=== PATIENT | female | born 1950 | race Caucasian/White ===

== ENCOUNTER 2016-10-12 18:44 | Inpatient (IN) | payer MEDICARE, BC ==
--- NOTE | ~2016-10-12 | CO ---
Unit #: [id number] #: [id number] Patient: NICOLE HOLLIS [id number] [address] [address] [id number] I MR#: [id number] NAME: NICOLE HOLLIS ROOM: 560 Age: 66 Sex: F Admission Date: 10/12/2016 : 1950 Attending Physician: Trever Espinoza M.D. Primary Care Physician: David Ramirez M.D. CONSULTATION REPORT CHIEF COMPLAINT Cirrhosis of the liver, pancytopenia, history of Hodgkin lymphoma, congestive heart failure, declined performance, massive bilateral lymphedema on hemodynamically, came for headache. HISTORY OF PRESENT ILLNESS This is a 66-year-old female who was admitted in the hospital during May with multi-organ failure. She was started on dialysis. She had significant improvement in the quality of life. She has lost weight. Now she is able to walk. She is at present living at home. She has a headache and they are trying to rule out meningitis. At present, she is comfortable. Her headache is better. From a hematology point of view, the patient with diagnosis of Hodgkin lymphoma the age of 20 and received chemotherapy only. During 2010, she developed pancytopenia but bone marrow was normal. The patient developed HOWELL. Subsequently she developed cirrhosis leading to pancytopenia. This has been stable for a long time. The massive bilateral lower extremity lymphedema. The patient had difficulty walking. However, after hemodialysis, she is improved. At present she is feeling comfortable. REVIEW OF SYSTEMS CONSTITUTIONAL: No fever, no chills, no sweats, no weight loss. EYES: No visual symptoms. EARS, NOSE AND THROAT: There is no runny nose or sore throat or difficulty hearing. CARDIOVASCULAR: No chest pain. No shortness of breath. No palpitations. No orthopnea. No PND. RESPIRATORY: No cough. No wheezing. No hemoptysis. GASTROINTESTINAL: No nausea, vomiting, diarrhea, constipation, hematochezia or melena. GENITOURINARY: No urinary frequency, hesitancy or urgency. No blood in the urine. MUSCULOSKELETAL: No muscle or joint pain. NEUROLOGIC: No headache. No numbness or tingling. No weakness. No seizure. PSYCHIATRIC: No anxiety, depression or mood disturbance. ENDOCRINE: No excessive urination or thirst. DERMATOLOGIC: No rash or change in the skin. ALLERGIC/IMMUNOLOGIC: No symptoms. Unit #: [id number] #: [id number] Patient: NICOLE HOLLIS HEMATOLOGIC/LYMPHATIC: Denies any symptoms. PAST MEDICAL HISTORY 1. Hodgkin lymphoma diagnosed at age of 20, status post chemotherapy. No sign of disease. 2. Pancytopenia, bone marrow normal, August 2010. 3. Cirrhosis of the liver. 4. Portal hypertension. 5. Splenomegaly. 6. CKD. 7. Diabetes. 8. Hypertension. 9. Sleep apnea. 10. Congestive heart failure. 11. Anxiety. 12. Depression. 13. Asthma. 14. Massive lower extremity lymphedema. 15. Valvular disease. CURRENT MEDICATIONS Include: 1. Vancomycin. 2. Pepcid. 3. Tylenol. 4. Ceftriaxone. 5. Paxil. 6. Synthroid. 7. Inhaler. ALLERGIES 1. Morphine. 2. Sulfa. SOCIAL HISTORY No smoking, no alcohol, no drugs. However, she has significant exposure to second-hand smoking. FAMILY HISTORY Positive for diabetes, hypertension, coronary artery disease. PHYSICAL EXAMINATION GENERAL: Patient is comfortable. ECOG is 0. The patient is pleasant. VITAL SIGNS: Afebrile. O2 saturation on 2 liters 100%. Pulse 94. Respiratory rate 18. Blood pressure 120/69. HEENT: Moist mucosa. Pupils equally reactive to light. Extraocular muscles intact. Sclerae anicteric. No obvious bleeding from nasal mucosa or oral mucosa. Scalp normal. Hearing normal. NECK: No JVD. No lymphadenopathy. LYMPHATIC/HEMATOLOGIC: There is no palpable adenopathy in the neck, axilla or inguinal area. CARDIOVASCULAR: S1, S2. Regular rate and rhythm. No S3 or S4. RESPIRATORY: Chest symmetrical, normal. Clear to auscultation bilaterally. No wheezes, no rales, no rhonchi. No dullness to percussion. ABDOMEN/GASTROINTESTINAL: Abdomen is soft, nontender, nondistended. No hepatosplenomegaly. EXTREMITIES: Bilateral lower extremity lymphedema. There is no clubbing, no cyanosis. No varicose veins. Unit #: [id number] #: [id number] Patient: NICOLE HOLLIS NEUROLOGICAL: Patient is alert, awake and oriented x3. Cranial nerves II-XII are intact. Sensory grossly intact. Motor is 4/5 in all four extremities. Gait is normal. Station is normal. Language is normal. Memory is normal. DTRs +2 in all four extremities. MUSCULOSKELETAL: No joint swelling. No bony tenderness. No muscle tenderness. SKIN: No petechiae, no rash, no ecchymosis. PSYCHIATRIC: No anxiety. No delusions or hallucinations. There is no agitation. Eye contact is normal. Affect is appropriate. There is no flight of ideas. DIAGNOSTIC STUDIES LABORATORY: WBC 8.4, hemoglobin 8.4, MCV 103, platelets 54. Creatinine is 5.4. Iron studies are normal. LFTs are normal. IMAGING: Patient had MRI of the brain and MRA of the neck all normal. ASSESSMENT AND PLAN This 66-year-old female has the following active issues: 1. Hodgkin lymphoma. Patient was diagnosed with Hodgkin lymphoma age of 20. She received chemotherapy. No sign of disease. 2. Pancytopenia. Bone marrow biopsy during August 2010 normal. Now this is due to cirrhosis of the liver. There is significant sequestration of WBC and platelets in the liver and the spleen. Will supportive care. If she needs a lumbar puncture, will transfuse her 2 units of single-donor platelets. 3. Anemia with iron studies normal. This is due to chronic disease. 4. Cardiovascular/respiratory. CAD, COPD, CHF, stable. 5. Renal. The patient has end-stage of disease, is on dialysis an disease working. This had removed a significant amount of fluid. She has lost more than 100 pounds and is feeling better. Extremities, the edema is better. Dictated by... Gordon Mcgee/michael TD: 10/14/2016 22:12 JOB #: [id number] CONSULTATION REPORT Page 1 of 1 X Angel Helton MD CONSULTATION REPORT
--- NOTE | ~2016-10-12 | CO ---
Unit #: [id number] #: [id number] Patient: FUNMILAYO LINO [id number] [address] [place], [place] [address] [id number] I MR#: [id number] NAME: FUNMILAYO LINO ROOM: 560 Age: 66 Sex: F Admission Date: 10/12/2016 : 1950 Attending Physician: Trever Espinoza M.D. Primary Care Physician: David Ramirez M.D. Consultation Date: 10/13/2016 CONSULTATION REPORT REASON FOR CONSULTATION End-stage renal disease. Thank you very much for asking us to see this patient in consultation. HISTORY OF PRESENT ILLNESS Ms. Funmilayo Lino is a 66-year-old female, who has a history of end-stage renal disease since June, who has using a tunneled catheter currently for dialysis, although appears to have a new [place] in her left arm whom she states was placed a couple of weeks ago at [facility]. The patient presented here yesterday with worsening headache and found to have a low-grade fever, was admitted for this. She was having some neurological event, she was given IV steroids for her headaches, she states is feeling better, although not resolved. She states on Monday on dialysis, she got real tired and weak after dialysis with severe headache. She also had a headache afterwards yesterday but not as weak. She denies any chest pain or shortness of breath. No nausea or vomiting. No diarrhea. PAST MEDICAL HISTORY History of end-stage renal disease, again hemodialysis every Monday, Monday, and Monday. History of COPD, history of obstructive sleep apnea, status post gastric bypass, history of atrial fib, history of cirrhosis, history of pancytopenia, history of Hodgkin lymphoma, history of ascites, history of hypothyroidism, history of hypertension, history of diastolic congestive heart failure, history of hyperlipidemia, history of chronic lymph edema, history of morbid obesity. MEDICATIONS At home include inhalers, she is on PhosLo 667 with each meal, Pepcid 20 mg a day, lactulose 30 mL daily, Synthroid 125 mcg daily, Paxil 20 mg a day, ProMod, she is on Ultram q.8, Xanax 0.25 mg p.r.n., Zofran p.r.n. Her medications here include vancomycin, lactulose, Rocephin, Paxil, Synthroid, PhosLo, Zofran, Tylenol, Pepcid, insulin, she is on dexamethasone 4 mg q.6. She is also appears to be on ampicillin. ALLERGIES Include sulfa, morphine, and gabapentin. SOCIAL HISTORY She does not smoke or drink. REVIEW OF SYSTEMS Unit #: [id number] #: [id number] Patient: FUNMILAYO LINO As mentioned in the HPI. She does not remember having any fevers at home or any visual problems, sinus problems. No cough or hemoptysis. No neck pain or neck stiffness. No severe abdominal pain. No chest pain. No shortness of breath. She has chronic swelling. FAMILY HISTORY Noncontributory. PHYSICAL EXAMINATION GENERAL: She is alert. She is oriented, but she seems little bit confused. She told me she has only been on dialysis for a couple of weeks, although she is alert and oriented. VITAL SIGNS: T-max is 100.2, pulse 97 to 106, blood pressure 106 to 135 over 50s to 60s. HEENT: She is normocephalic and atraumatic. Pupils are equal, round, and reactive to light. Extraocular muscles are intact. Hearing appears to be normal. Mouth, clear. No erythema. No exudate. NECK: Supple. No JVD. CARDIAC: She appears to have a regular rhythm without a rub. No S3 or S4. LUNGS: Fairly clear bilaterally. No wheezes, rhonchi, or rales. ABDOMEN: Obese, bowel sounds positive, nontender. EXTREMITIES: Her legs are large. She has some chronic skin changes from swelling. Her left upper extremity appears to have a [place] in place with a wound that is clear. She has a tunneled catheter in her upper right chest. : Deferred. DIAGNOSTIC STUDIES LABORATORY RESULTS: Today, shows a glucose of 235, BUN of 26, creatinine 3.9, sodium 136, potassium 5.2, chloride is 99, bicarb is 26, calcium is 8.7. Her albumin is 2.5. Magnesium is 1.6. Alkaline phosphatase 128. Liver function tests are normal. Troponin 0.08. CPK is 72, TSH is 2.57. Her INR is 1.1. Hemoglobin is 8.8 with a white count of 8700, platelets 41,000 which 62,000 when she came in and her hemoglobin was 10.9 when came in, her white count has improved. Her urine sample was done. Blood cultures are done and are pending at this time. ASSESSMENT AND PLAN 1. End-stage renal disease. The patient went to dialysis yesterday. Her potassium is a little bit up and is also with partial 82 of sugar. I am going to go ahead and just give her 15 g Kayexalate, ordered dialysis in the morning. I am not sure of her true volume status with her episode she had on Monday, and Monday and probably will not be real aggressive on the fluid removal. We will place her on a two potassium bath. We will follow. Check electrolytes in a.m. as well. 2. Fever, increased WBC on multiple antibiotics, questionable meningitis versus other. Blood cultures are pending. Certainly, she has a tunneled catheter in place and that also could be a source of infection. 3. History of cirrhosis. 4. History of pancytopenia. 5. History of chronic obstructive pulmonary disease. Dictated by..Kari Dong M.D. ABDOULAYE/alisha Unit #: [id number] #: [id number] Patient: FUNMILAYO LINO TD: 10/14/2016 04:21 JOB #: [id number] CONSULTATION REPORT Page 1 of 1 X Teresa Dong MD X CONSULTATION REPORT
--- NOTE | ~2016-10-12 | MR122 ---
[facility] A Service of [facility] RADIOLOGY TEXT RESULTS PATIENT: NICOLE HOLLIS LOCATION: C5B 560-01 : [birth year] UNIT #: [id number] AGE: [address]: Trever Espinoza MD SEX: F ORDER DR: [id number] [facility] [address] [place], [place] [address] [id number] I MR#: [id number] Acc #: [id number] NAME: NICOLE HOLLIS : 1950 SEX: F STUDY DATE/TIME: 10/13/2016 21:32 UNIT: [facility] ROOM: [facility] STUDY DESCRIPTION: MR MRA Head Wo Contrast Attending Physician: Trever Espinoza M.D. Ordering Physician: Sarah Quigley M.D. Primary Care Physician: David Ramirez M.D. MRI CENTER REPORT This report is preliminary unless electronic signature is present. EXAM Intracranial MR angiogram HISTORY Severe intractable headache since yesterday at 03:00 p.m., weakness. Patient does not talk well and has a history of Hodgkin's disease for 4 years. COMMENT MR angiography performed [place] vasculature. There is a separate MRI brain and MR angiogram neck. There is a hypoplastic or diseased distal left vertebral artery and the flow related enhancement is essentially not seen. The right vertebral artery supplies the basilar. There is no discrete vascular cutoff seen. Study is motion limited and there are some areas of irregular narrowing which could be real or artifactual most apparent in the left MCA territory. The asymmetric involvement of the left MCA territory would suggest that there is at least some component of true disease. If real this would probably be a manifestation of intracranial atherosclerotic disease though vasculitis is a secondary differential consideration. No definite anterior communicating artery is seen. Neither posterior communicator is seen. No gross evidence for intracranial aneurysm [place]. IMPRESSION Study is motion limited. Allowing for this, no intracranial vascular cutoff is appreciated. No gross intracranial aneurysm. The right vertebral artery supplies the basilar. The distal left vertebral artery is not seen and it is presumably hypoplastic or diseased. There is some irregularity of the intracranial vasculature in general most apparent in the left MCA territory. While it is likely that at least some of this is artifactual because of the motion present, the asymmetric involvement of [facility] A Service of [facility] RADIOLOGY TEXT RESULTS PATIENT: NCIOLE HOLLIS LOCATION: [facility] 560-01 : [birth year] UNIT #: [id number] AGE: [address]: Trever Espinoza MD SEX: F ORDER DR: the left MCA territory raises concern for some component of intracranial atherosclerotic disease or less likely vasculitis. Correlate clinically. STAT * RESULT Dictated by... Brittany Hagan M.D. THIS IS AN ELECTRONICALLY VERIFIED REPORT Brittany Hagan M.D. at 10/14/2016 8:04 AM BREANA/lisa TD: 10/14/2016 07:55 JOB #: [id number] MRI CENTER REPORT Page 1 of 1 COPY
--- NOTE | ~2016-10-12 | CT71 ---
[facility] A Service of [facility] RADIOLOGY TEXT RESULTS PATIENT: NICOLE HOLLIS LOCATION: CEDOF 33319-04 : [birth year] UNIT #: [id number] AGE: [address]: Shari Palma MD SEX: F ORDER DR: [id number] [facility] [address] [place], [place] [address] [id number] MR#: [id number] Acc #: [id number] NAME: NICOLE HOLLIS : 1950 SEX: F STUDY DATE/TIME: 10/12/2016 17:19 UNIT: CEDOF ROOM: 15948 STUDY DESCRIPTION: CT Head Wo Contrast Attending Physician: Shari Palma M.D. Ordering Physician: Rahat Best D.O. Primary Care Physician: David Ramirez M.D. MEDICAL IMAGING REPORT This report is preliminary unless electronic signature is present EXAM Head CT without HISTORY Headache and blurred vision for 3 days; history of hypertension, renal failure; irregular heartbeat; neuropathy; Hodgkin's disease, diabetes/ COMMENT Routine noncontrast head CT is reviewed. This CT exam was performed with one or more of the following radiation dose reduction techniques: automatic exposure control, adjustment of mA and/or kV according to patient size, and iterative reconstruction. COMPARISON 11/09/2014 FINDINGS Small air-fluid level in the sphenoid sinus with some retained secretions. Please correlate for mild acute sinusitis symptoms. Otherwise paranasal sinuses and mastoid air cells are clear. Incidental note made of hyperostosis frontalis interna. There is no evidence for acute intracranial hemorrhage or extraaxial fluid collection. The ventricles are normal in size and configuration and the basilar cisterns are patent. No intracranial mass effect. No obvious acute cortical infarct is appreciated but if there is clinical concern for acute CVA followup imaging would be suggested preferably with an MRI if the patient. The patient has had cataract surgery bilaterally. IMPRESSION 1. There is no acute intracranial abnormality appreciated, but if there is clinical concern for acute CVA followup imaging is recommended preferably with an MRI. [facility] A Service of [facility] RADIOLOGY TEXT RESULTS PATIENT: NICOLE HOLLIS LOCATION: CEDOF 36215-28 : [birth year] UNIT #: [id number] AGE: [address]: Shari Palma MD SEX: F ORDER DR: 2. Tiny air-fluid level sphenoid sinus consistent with a component of acute sinusitis. Please correlate further clinically. Dictated by... Brittany Hagan M.D. THIS IS AN ELECTRONICALLY VERIFIED REPORT Brittany Hagan M.D. at 10/12/2016 11:08 PM SAC/to TD: 10/12/2016 21:52 JOB #: [id number] MEDICAL IMAGING REPORT Page 1 of 1 COPY
--- NOTE | ~2016-10-12 | EKG ---
PATIENT: NICOLE HOLLIS UNIT #: [id number] Ventricular Rate: 104 BPM Atrial Rate: 104 BPM P-R Interval: 140 ms QRS Duration: 80 ms Q-T Interval: 362 ms QTC Calculation(Bezet): 476 ms P Cuthbert: 76 degrees Calculated R Cuthbert: 77 degrees Calculated T Cuthbert: 66 degrees Diagnosis Line: Sinus tachycardia Premature atrial complexes Diagnosis Line: Borderline ECG Diagnosis Line: When compared with ECG of 27-MAY-2016 14:56, Diagnosis Line: Sinus rhythm has replaced Atrial fibrillation Diagnosis Line: Nonspecific ST elevation is now Present Diagnosis Line: Confirmed by BERNICE SCHULER MD ([id number]) on 10/13/2016 Diagnosis Line: 8:04:10 PM INTERPRETING MD: GANGA FLOWERS
--- NOTE | ~2016-10-12 | DS ---
Unit #: [id number] #: [id number] Patient: NICOLE HOLLIS [id number] [address] [place], [place] [address] [id number] I MR#: [id number] NAME: NICOLE HOLLIS ROOM: 560 Age: 66 Sex: F Admission Date: 10/12/2016 : 1950 Discharge Date: 10/16/2016 Attending Physician: Trever Espinoza M.D. Primary Care Physician: David Ramirez M.D. DISCHARGE SUMMARY FINAL DIAGNOSES 1. Presumed sepsis. 2. Headache. 3. Hyperglycemia. SECONDARY DIAGNOSES 1. End stage renal disease, on dialysis with Dr. Dong Monday, Monday, Monday. 2. Chronic obstructive pulmonary disease. 3. Congestive heart failure. 4. Paroxysmal atrial fibrillation. 5. Cirrhosis of unknown etiology. 6. Diabetes mellitus type 2. 7. Coronary artery disease. 8. Hypertension. 9. Hyperlipidemia. 10. Obstructive sleep apnea. 11. History of non-Hodgkin lymphoma. 12. Chronic pancytopenia. 13. Hypothyroidism. 14. Chronic lymphedema. CONSULTS 1. Dr. Quigley - Neurology. 2. Dr. Crystal - Hematology. 3. Dr. Dong - Nephrology. HOSPITAL COURSE The patient is a pleasant 61-year-old female well known to me who presented with headache and was feeling well from dialysis. She was admitted for possible sepsis and treated with broad spectrum antibiotics. The initial thought was that she may have meningitis. However, on evaluation per Neurology, did not suggest so and a lumbar puncture was deferred. This was because her headache had resolved. The etiology of the possible sepsis was questionable at this point simply because her white count was 14,000 on admission and urine culture so far has been negative for 24 hours even though she has had antibiotics for two to three days prior to being cultured. She was seen by hematology. 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 She did get hemodialysis while she was here, by Dr. Dong. One of her blood culture showed no growth and the other one showed Proteus mirabilis. This was sensitive to ampicillin, ceftazidime, ceftriaxone and cefepime. She has improved significantly and she is suitable and stable for discharge. The etiology of the sepsis is presumptive from the urinary Unit #: [id number] #: [id number] Patient: NICOLE HOLLIS at this time and I would discharge the patient on Ceftin 250 mg p.o. b.i.d. for ten days with presumed Proteus mirabilis urinary tract infection even though the culture did come back negative. She will be discharged in stable condition. MEDICATIONS Medications on discharge would include: 1. Ceftin 250 mg p.o. b.i.d. for ten days. 2. Ultram 50 mg p.o. q.8 hours p.r.n. 3. Dulera 20 mcg, one inhalational twice day. 4. Xanax 0.25 mg, one p.o. q.8 hourly p.r.n. 5. Albuterol nebulizer, one inhalational q.4-6 hourly needed for shortness of air. 6. Lactulose 30 mL p.o. daily. 7. Acetaminophen 500 mg p.o. t.i.d. as needed for pain. 8. Paxil 20 mg p.o. daily. 9. Zofran 4 mg p.o. q.8 hourly as needed for nausea. 10. Benadryl 25 mg p.o. q.6 hourly as needed for itching and allergies. 11. ProMod 30 mL p.o. at bedtime. 12. Breo Ellipta 200/25 mg, one inhalational daily as needed. 13. Levemir 30 units subcu b.i.d. per home dose. 14. NovoLog sliding scale per home dose. 15. Famotidine 20 mg p.o. daily. 16. Ultram 50 mg p.o. q.8 hourly as needed. 17. Calcium acetate 667 mg p.o. t.i.d. 18. Levothyroxine sodium 125 mcg p.o. every morning She will be discharged with home health. We will repeat a CBC and BMP in three days and urine culture after the course of antibiotics. Time spent coordinating discharge is about 40 minutes. Dictated by... Gordon Montero TD: 10/16/2016 13:14 JOB #: [id number] DISCHARGE SUMMARY Page 1 of 1 X David Ramirez MD DISCHARGE SUMMARY
--- NOTE | ~2016-10-12 | CR72 ---
[facility] A Service of [facility] RADIOLOGY TEXT RESULTS PATIENT: NICOLE HOLLIS LOCATION: C5 560-01 : [birth year] UNIT #: [id number] AGE: [address]: Trever Espinoza MD SEX: F ORDER DR: [id number] [facility] [address] [place], [place] [address] [id number] I MR#: [id number] Acc #: [id number] NAME: NICOLE HOLLIS : 1950 SEX: F STUDY DATE/TIME: 10/12/2016 18:36 UNIT: CEDOF ROOM: 15320 STUDY DESCRIPTION: CR Chest Single View Portable Attending Physician: Shari Palma M.D. Ordering Physician: Rahat Best D.O. Primary Care Physician: David Ramirez M.D. MEDICAL IMAGING REPORT This report is preliminary unless electronic signature is present EXAM Portable AP view of the chest. COMPARISON June 12, 2016 and June 09, 2016. INDICATION 58-year-old female with chest pain for 3 days. FINDINGS Calcified granulomas are noted in both lungs. There is no evidence of pneumothorax, pleural effusion or acute airspace disease. Cardiomediastinal silhouette is within normal limits. Diffuse spondylosis of the thoracic spine. Hemodialysis-type catheter is seen in the right internal jugular vein with the tip terminating near the cavoatrial junction. IMPRESSION No acute radiographic abnormality of the chest. Bilateral calcified pulmonary granulomas. Dictated by... Maikol Johnson M.D. THIS IS AN ELECTRONICALLY VERIFIED REPORT Maikol Johnson M.D. at 10/13/2016 5:23 PM NIRU/ortega TD: 10/12/2016 21:57 JOB #: [id number] [facility] A Service of [facility] RADIOLOGY TEXT RESULTS PATIENT: NICOLE HOLLIS LOCATION: C5 560-01 : [birth year] UNIT #: [id number] AGE: [address]: Trever Espinoza MD SEX: F ORDER DR: MEDICAL IMAGING REPORT Page 1 of 1 COPY
--- NOTE | ~2016-10-12 | US77 ---
[facility] A Service of [facility] RADIOLOGY TEXT RESULTS PATIENT: NICOLE HOLLIS LOCATION: [facility] [address] : 48 UNIT #: [id number] AGE: [address]: Trever Espinoza MD SEX: F ORDER DR: [id number] [facility] [address] [place], [place] [address] [id number] I MR#: [id number] Acc #: [id number] NAME: NICOLE HOLLIS : 1950 SEX: F STUDY DATE/TIME: 10/14/2016 18:42 UNIT: [facility] ROOM: [facility] STUDY DESCRIPTION: US Kidney Bilateral Complete Attending Physician: Trever Espinoza M.D. Ordering Physician: Molina Dong M.D. Primary Care Physician: David Ramirez M.D. MEDICAL IMAGING REPORT This report is preliminary unless electronic signature is present EXAM Bilateral renal ultrasound INDICATION Poor renal function with BUN of 47, creatinine of 5.4. COMPARISON STUDIES 10/06/15 FINDINGS Bladder is not visualized. The right kidney is poorly seen and measures about 8.4 cm in diameter. No hydronephrosis visible. The left kidney is also poorly seen, and it is about 8.5 meters in length. There is a hypoechoic area measuring 15 mm in diameter in the left kidney suggesting a cyst. IMPRESSION The study is limited by the patient's size. There is a probable cyst measuring 15 mm in diameter in the left kidney. There is no hydronephrosis on either side. Dictated by... Iker Krause M.D. THIS IS AN ELECTRONICALLY VERIFIED REPORT Iker Krause M.D. at 10/15/2016 8:04 PM RAGHU/katelynn TD: 10/15/2016 18:46 JOB #: [id number] [facility] A Service [facility] RADIOLOGY TEXT RESULTS PATIENT: NICOLE HOLLIS LOCATION: [facility] 560 : 48 UNIT #: [id number] AGE: [address]: Trever Espinoza MD SEX: F ORDER DR: MEDICAL IMAGING REPORT Page 1 of 1 COPY
--- NOTE | ~2016-10-12 | BMI ---
[facility] Nutrition Therapy DATE: 10/13/16 Patient: NICOLE HOLLIS Physician: JOSEPH Address: [facility] Room/Bed: [address] [place] [address], Zip: [place] [address] Admit Date: 10/12/16 Date of : 48 Height: 5 4 Weight: 240 108.86 HIGH BMI NOTE: DX: 66 yo female admitted for intractable headache ANTHROPOMETRICS: Ht: 5'4" Wt: 109.1 kg (240#) BMI: 41.3 DIET: NPO INTERVENTION: 1. NPO RECOMMENDATIONS: 1. Once medically feasible, advance diet as indicated to consistent carb + healthy heart diet to promote gradual weight loss towards healthy BMI. RD will f/u per protocol. Respectfully, Ciara Yoon, [employer] Lorena Dunlap, RUDI, LD [employer] [facility] cc: client file
--- NOTE | ~2016-10-12 | CO ---
Unit #: [id number] #: [id number] Patient: NICOLE HOLLIS [id number] [facility] [address] [place], [place] [address] [id number] I MR#: [id number] NAME: NICOLE HOLLIS ROOM: 560 Age: 66 Sex: F Admission Date: 10/12/2016 : 1950 Attending Physician: Trever Espinoza M.D. Primary Care Physician: David Ramirez M.D. Consultation Date: 10/13/2016 CONSULTATION REPORT PRIMARY CARE PHYSICIAN David Ramirez M.D. REASON FOR CONSULTATION Intractable headache. PATIENT IDENTIFICATION This is a 66-year-old, right-handed, female, evaluated in room 568 at [facility]. SOURCE OF INFORMATION Obtained from the patient as well as the medical record. HISTORY OF PRESENT ILLNESS This is a 66-year-old, right-handed, female with past medical history of end-stage renal disease, on hemodialysis; COPD; CHF; paroxysmal atrial fibrillation, not on anticoagulation secondary to pancytopenia; cirrhosis of unknown etiology; diabetes mellitus, type 2; CAD; hypertension; hyperlipidemia, who presented to [facility] with complaints of headache and blurred vision after hemodialysis according to the medical record. The patient after discussion with her states that she does not have any prior history of chronic headache. She states that other than occasional headache throughout her life and that is resolved with ohlp-ntj-vboxzdh medicine that she does not have any chronic headache history. She states that she went to dialysis on Monday of this week and after dialysis, she states that she felt very weak and fatigued and had a headache. She denies blurred vision or any vision changes, but states that it was painful and that closing her eyes made her feel better. She took some usns-cdc-mhbshcs medicine and it actually resolved. She states that she was feeling better on Monday, however, on Monday, she went for hemodialysis and had a similar experience for. She developed a headache following dialysis and felt weak. She states that the pain was severe and continued that she sought further treatment and evaluation. She reports it is a generalized headache on top of her head. She denies any exacerbating or alleviating factors other than psar-uqp-opaeuvd medicines that she states did not help it. She denies any blurred vision, double vision, loss of vision, or amaurosis fugax, but states that it was painful and the light did bother her so she did close her eyes. She is adamant that she has not had any blurred vision. She denies any focal pain, any facial weakness, dysarthria, aphasia, focal neurologic changes such as left arm or right arm or left arm or right leg weakness or paresthesia. She denies any neck pain, any recent fever or chills. She did receive 0.25 mg of Dilaudid in the ER with no relief of her headache. She states that she actually feels much better today than yesterday. It Unit #: [id number] #: [id number] Patient: NICOLE HOLLIS appears that she has been receiving IV Decadron, which may have helped. She reports that it is sharp and throbbing in nature. Again, she denies any vision changes or neurologic symptoms or deficits. She denies any fever, illness, injury, or neck pain, and again she states it is "much better today." When asked to quantify on a 0-10 pain scale, she states it is "only a 5." She was admitted for further evaluation of intractable headache, possible sepsis. Her lactic acid was elevated and she did have an elevated temperature in the ER of 100.2, she is currently 98.2, it was 97.3 this morning. On arrival her temperature was 98.7. She did receive Rocephin and vancomycin and that has been continued because of her elevated lactic acid. Her sedimentation rate was 50. Her white blood cell count was 14.3. She has chronic pancytopenia and initially platelet count 62, was unable to undergo a lumbar puncture. Her platelet count today is down to 41. CT of the head done without contrast was negative for any acute intracranial abnormality. There is a tiny air-fluid level in the sphenoid sinus consistent with component of acute sinusitis. Blood cultures have been done preliminary with preliminary results with one of two sets growing gram-negative rods with identification and sensitivity to follow. PAST MEDICAL HISTORY 1. End-stage renal disease, on hemodialysis. She was started on hemodialysis in 06/2016 after admission to [facility] for fluid overload. 2. COPD. 3. Chronic respiratory failure. She is on 2 L home oxygen at home. 4. CHF. Last echocardiogram done was done in 2014 that showed an EF of 50% to 55%. She follows with [facility]. 5. Paroxysmal atrial fibrillation. She is not on anticoagulation due to chronic pancytopenia. 6. Cirrhosis of unknown etiology with portal hypertension. 7. CAD. 8. Diabetes mellitus. 9. Hypertension. 10. Hyperlipidemia. 11. Obstructive sleep apnea, not on CPAP. 12. Non-Hodgkin lymphoma. 13. Hypothyroidism. 14. Chronic lymphedema. 15. History of EGD. 16. Cataract surgery. 17. Gastric bypass. 18. Cholecystectomy. 19. Bilateral tubal ligation. 20. Tonsillectomy. 21. Abdominoplasty. 22. Bilateral arm surgery. 23. Bone marrow biopsy. ALLERGIES Include sulfa, morphine, gabapentin. HOME MEDICATIONS As per med rec include acetaminophen 500 mg p.o. t.i.d. p.r.n., albuterol sulfate one inhalation q.4 to 6 hours p.r.n. shortness of air, Breo Ellipta one inhalation daily for congestion p.r.n., Benadryl 25 mg p.o. p.r.n. for itching and allergies. There is no frequency documented on the med rec. Calcium acetate 667 mg p.o. t.i.d., famotidine 20 mg p.o. daily, Unit #: [id number] #: [id number] Patient: NICOLE HOLLIS lactulose 30 mL p.o. daily, Synthroid 125 mcg p.o. every morning, paroxetine 25 mg p.o. daily, protein supplement 30 mL p.o. q.h.s., tramadol 50 mg p.o. q.8 hours p.r.n. pain, alprazolam 0.25 mg p.o. q.8 hours p.r.n., Zofran 4 mg p.o. q.8 hours p.r.n. FAMILY HISTORY Noncontributory to her presenting illness. SOCIAL HISTORY The patient has no current tobacco use, alcohol use, or illicit drug use. REVIEW OF SYSTEMS 14-point review of systems was done. Pertinent positives are as discussed above, otherwise negative. PHYSICAL EXAMINATION VITAL SIGNS: Temperature as discussed above, pulse 81, respirations 16, blood pressure 110/68, blood pressure in the ER on arrival was 115/60, she has remained normotensive and asymptomatic, oxygen saturation 100%. Height 5 feet 4 inches, weight 240 pounds. BMI 41. NEUROLOGIC: The patient is awake, resting in bed comfortably, calm, and not ill appearing, in no apparent distress, She follows simple commands. She is oriented to person. She is oriented to place. She is oriented to the month, the day of the week, but told me that initially that she thought it was 2016. She was able to correct herself to 2017. She has clear speech. She has no aphasia or dysarthria. She follows simple commands and 2- and 3-step commands. Cranial nerve exam, she demonstrates full arce of vision. Eyes are conjugate without ptosis or nystagmus. Extraocular movements are intact. Sensation of face and scalp is intact. Strength of muscles of facial expression is intact. Hearing is intact to conversation. Tongue is midline. Uvula is midline. Palate elevation is normal. Head turning is unremarkable. Shoulder shrug is unremarkable. Neck is supple. No meningismus appreciated. Pupils are equal, round, reactive, 3+, and brisk. Motor exam, she demonstrates normal bulk, tone is questionable, but with distraction. She does not appear to have any cogwheeling. On exam, she does have a left upper extremity tremor that appears to be more present with movement. She has some asterixis bilaterally. Strength otherwise is equal in the upper extremities. 5-/5 in the lower extremities. She is able to lift against gravity, but difficulty with resistance. She has significant lymphedema. She appears to be equal with no focal changes and no pain with evaluation. Sensory exam is difficult in the lower extremities and in the upper extremities otherwise unremarkable. Gait and Romberg deferred. Reflexes, unable to elicit. Toes are equivocal. Coordination, no past-pointing in the upper extremities or cerebellar signs, unable to evaluate in the lower extremities. DIAGNOSTIC STUDIES IMAGING STUDIES: Please see above. LABORATORY RESULTS: Blood cultures are as discussed above. Repeat CBC shows a white count of 8.7, hemoglobin 8.8, hematocrit 26.1, and platelet count 41. TSH 2.57. Sodium 136, potassium 5.2, chloride 99, CO2 of 26, glucose 235, BUN 26, creatinine 3.9, estimated GFR 11.2, calcium 8.7, AST 27, ALT 12, alkaline phosphatase 128, total protein 5.6, albumin 2.5, phosphorus 3.8, magnesium 1.6. Lactic acid 2.7, initial lactic acid 3.3. Repeat troponin 0.08, initial troponin less than 0.05. ESR 50. Initial white count 14.3. Unit #: [id number] #: [id number] Patient: NICOLE HOLLIS IMPRESSION 1. Headache generalized, nonspecific, episodic, resolving, on Decadron. 2. Fever, resolved. 3. Questionable sepsis. 4. End-stage renal disease, on hemodialysis. 5. Chronic obstructive pulmonary disease. 6. Congestive heart failure. 7. Coronary artery disease. 8. History of paroxysmal atrial fibrillation, not on anticoagulation secondary to chronic pancytopenia. 9. Cirrhosis. 10. One out of two positive blood cultures. PLAN The patient's headache is much improved on steroids. She states that it is mostly resolved, but still lingering. Given presentation and episodic nature in improvement and no other focal symptoms on exam or complaints, this is currently not suggestive of a primary neurologic etiology or a meningitis and does not appear typical of temporal arteritis or pseudotumor cerebri. She has had no associated vision changes, this is not appear to be consistent with a migraine given the nature in presentation. We will continue to treat symptomatically since she is 66 with no prior history. Dr. Quigley just wanted an MRI of the brain, MRA of the head and neck. We will do that without contrast given her end-stage renal disease, on hemodialysis. If that is unremarkable and the patient continues to improve, we will recommend observation from a neurologic standpoint. She is being treated for meningitis clinically. This does not appear typical of that at this time, but must consider. She is unable to go for lumbar puncture given her pancytopenia with platelet count of 41 today. Further recommendations to be made pending workup and further clinical course. Please call for any questions or issues. The patient has been seen by Dr. Quigley and he agrees with above. Please see his note. We will follow along with you. Dictated by... Lorena Washington A.P.R.N. for Gordon Yi/alisha TD: 10/14/2016 07:55 JOB #: [id number] CONSULTATION REPORT Page 1 of 1 X Lorena Washington APRN CONSULTATION REPORT
--- NOTE | ~2016-10-12 | HP ---
Unit #: [id number] #: [id number] Patient: NICOLE HOLLIS [id number] [address] [facility]. [place], [place] [address] [id number] I MR#: [id number] NAME: NICOLE HOLLIS ROOM: 56210 Age: 66 Sex: F Admission Date: 10/12/2016 : 1950 Attending Physician: Shari Palma M.D. Primary Care Physician: David Ramirez M.D. HISTORY AND PHYSICAL CHIEF COMPLAINT Headache and blurred vision from dialysis. HISTORY OF PRESENT ILLNESS The patient is a 66-year-old female with a past medical history of multiple medical problems including end-stage renal disease, on dialysis, COPD, chronic respiratory failure, CHF, cirrhosis, diabetes, obstructive sleep apnea, non-Hodgkin's lymphoma, chronic pancytopenia, hypothyroidism, paroxysmal atrial fibrillation, hypertension, hyperlipidemia, chronic lymphedema, and morbid obesity, who presented to the emergency department from dialysis for evaluation of the above. The patient is a poor historian. She states that she started having a headache yesterday. It is unclear if it woke her from sleep or if it came on gradually. She describes the headache as "sharp." It is on the left aspect of her forehead. There are no exacerbating or alleviating factors. She states the light bothers her somewhat. She denies any similar pain. She received 0.25 mg of Dilaudid in the emergency department with no relief of the headache. A CT of the head was done and showed nothing acute. She is being admitted to [facility] for evaluation and further treatment. Also of note, the patient's white blood cell count is 14.3. PAST MEDICAL HISTORY 1. Admission to [facility] May 27 through June 16, 2016, for fluid overload. She was started on dialysis during that admission. 2. End-stage renal disease, on dialysis, followed by Dr. Dong. The patient gets dialysis on Monday/Monday/Monday with the last dialysis being today. 3. Chronic obstructive pulmonary disease followed by Dr. Whalen. 4. Chronic respiratory failure, on two liters of oxygen per nasal cannula. 5. Congestive heart failure. The patient had an echocardiogram September 03, 2014, that showed an ejection fraction of 50% to 55%. The patient has seen Dr. Shah in the past. 6. Paroxysmal atrial fibrillation. The patient is not currently on anticoagulation due to chronic pancytopenia. 7. Cirrhosis of unknown etiology with portal hypertension. 8. Diabetes. 9. Coronary artery disease. 10. Hypertension. 11. Hyperlipidemia. 12. Obstructive sleep apnea, not on CPAP. Unit #: [id number] #: [id number] Patient: NICOLE HOLLIS 13. Non-Hodgkin's lymphoma. 14. Chronic pancytopenia. 15. Hypothyroidism. 16. Chronic lymphedema. PAST SURGICAL HISTORY 1. EGD. 2. Cataract surgery. 3. Gastric bypass. 4. Cholecystectomy. 5. Bilateral tubal ligation. 6. Tonsillectomy. 7. Abdominoplasty. 8. Bilateral arm surgery. 9. Bone marrow biopsy. ALLERGIES SULFA, MORPHINE, GABAPENTIN. HOME MEDICATIONS 1. Tylenol. 2. Albuterol. 3. Breo Ellipta. 4. Benadryl. 5. Calcium. 6. Famotidine. 7. Lactulose. 8. Synthroid. 9. Paxil. 10. Ultram. Home medications will need to be reviewed and verified. SOCIAL HISTORY The patient lives with family. There is no tobacco or alcohol use. FAMILY HISTORY Notable for both parents having heart problems. REVIEW OF SYSTEMS A complete review of systems is negative except as indicated in the History of Present Illness. PHYSICAL EXAMINATION VITAL SIGNS: Temperature is 98.7, pulse 106, respirations 16, blood pressure 115/60, and oxygen saturation 100% on room air. GENERAL: Patient is a female who is lethargic but wakes to physical stimuli. HEENT: Head is atraumatic. Mucous membranes are moist. NECK: Supple. Trachea is midline. No nuchal rigidity. CARDIOVASCULAR: Regular rate and rhythm. LUNGS: Decreased breath sounds at the bases. Breathing is not labored. ABDOMEN: Obese, soft, and nontender with bowel sounds present in all four quadrants. EXTREMITIES: Chronic lymphedema with scattered abrasions. NEUROLOGIC: Patient is lethargic but wakes to physical stimuli. She is oriented to the month and year but is not sure of the exact date. She is moving all extremities. Unit #: [id number] #: [id number] Patient: NICOLE HOLLIS PSYCHIATRIC: Patient has a flat affect. She is cooperative. SKIN: Skin of examined areas is warm and dry. DIAGNOSTIC STUDIES LABORATORY: INR is 1.1. Complete blood count notable for which blood cell count of 14.3, hemoglobin and hematocrit 10.9 and 33.1, respectively, and platelets are 62,000. Comprehensive metabolic panel notable for a chloride of 95, glucose 191, BUN and creatinine 16, and 3.2, respectively, alkaline phosphatase 187, and albumin is 3. Troponin is less than 0.05. IMAGING: CT of the head shows nothing acute. CARDIOLOGY: EKG showed sinus tachycardia with a rate of 104 beats per minute. ASSESSMENT The patient is a 66-year-old female with: 1. Intractable headache. The patient received 0.25 mg of Dilaudid in the emergency department. CT of the head was negative. She does have an elevated white blood cell count of 14.3. Meningitis needs to be ruled out. Dr. Best, the emergency room physician, spoke with Dr. Helton regarding attempting a lumbar puncture in this patient with a platelet count of 62,000. He recommended transfusing a unit of platelets prior to attempting lumbar puncture. The patient did receive Rocephin and vancomycin in the emergency department. 2. Sepsis. Meningitis needs to be ruled out. She has not had a chest x-ray. A catheter urinalysis was attempted, but the patient does not have any urine. 3. End-stage renal disease, on dialysis, with dialysis Monday/Monday/Monday, last today, followed by Dr. Dong. 4. Chronic obstructive pulmonary disease. 5. Chronic respiratory failure, on two liters of oxygen per nasal cannula. 6. Congestive heart failure with ejection fraction as noted above. 7. Paroxysmal atrial fibrillation, current not on anticoagulation due to pancytopenia. 8. Cirrhosis of unknown etiology. 9. Diabetes. The patient had a hemoglobin A1c on March 15, 2016, that was 6.4. 10. Coronary artery disease. 11. Hypertension. 12. Hyperlipidemia. 13. Obstructive sleep apnea, not on CPAP. 14. Non-Hodgkin's lymphoma. 15. Chronic pancytopenia. The patient's platelet count is 62,000 today. Hemoglobin is 10.9. Platelets were 41,000 on June 18, 2016. Hemoglobin was 8.3. 16. Hypothyroidism. 17. Chronic lymphedema. 18. Morbid obesity with a body mass index of 41. PLAN 1. Admit to intermediate level. 2. N.p.o. 3. Blood cultures x2. 4. Vancomycin IV, Rocephin IV, and ampicillin IV pending further workup. 5. Transfuse one unit of platelets. 6. Consult Interventional Radiology for lumbar puncture. Unit #: [id number] #: [id number] Patient: NICOLE HOLLIS 7. Cerebrospinal fluid studies including Gram stain, culture and sensitivity, glucose, protein, cell count, and differential. Antigen test for Streptococcal pneumoniae, Haemophilus influenza, Neisseria meningitides, E. coli, GBS, VDRL, and to hold for possible additional studies. 8. Decadron 4 mg IV q.6 hours with first dose now. 9. Consult Dr. Quigley regarding intractable headache. 10. Sepsis protocol with stat lactic acid. 11. Consult Dr. Dong regarding end-stage renal disease and dialysis needs. 12. Check urinalysis. 13. Follow up results of chest x-ray. 14. Serial cardiac enzymes. 15. Supplemental oxygen. 16. P.r.n. DuoNebs. 17. Low-dose sliding scale insulin with Accu-Cheks. 18. Check TSH. 19. Repeat labs in the morning. 20. SCDs for DVT prophylaxis. 21. Additional workup and consultants based on above. 1. Dictated by Gordon Valle/clair TD: 10/12/2016 21:16 JOB #: [id number] HISTORY AND PHYSICAL Page 1 of 1 X Shari Palma MD X HISTORY AND PHYSICAL
--- NOTE | ~2016-10-12 | MR18 ---
[facility] A Service of [facility] RADIOLOGY TEXT RESULTS PATIENT: NICOLE HOLLIS LOCATION: B 560-01 : 48 UNIT #: [id number] AGE: [address]: Trever Espinoza MD SEX: F ORDER DR: [id number] [facility] [address] [facility]. [place], [place] [address] [id number] I MR#: [id number] Acc #: [id number] NAME: NICOLE HOLLIS : 1950 SEX: F STUDY DATE/TIME: 10/13/2016 21:32 UNIT: [facility] ROOM: [facility] STUDY DESCRIPTION: MR Brain Wo Contrast Attending Physician: Trever Espinoza M.D. Ordering Physician: Sarah Quigley M.D. Primary Care Physician: David Ramirez M.D. MEDICAL IMAGING REPORT This report is preliminary unless electronic signature is present EXAM Brain MRI 10/13/2016 at 21:32 INDICATION Intractable headache that started yesterday. Weakness. Prior history of Hodgkin's disease 4 years ago. History of hypertension. TECHNIQUE Multisequence, multiplanar imaging was performed through the brain without contrast on a high field strength magnet. Comparison made with head CT performed 10/12/2016. FINDINGS The exam is motion degraded. Diffusion imaging is normal. There is no evidence of acute or subacute infarct. Ventricular size and configuration are within normal limits. There is a mild degree of generalized age-appropriate atrophy. T2 hyperintensities in the white matter are most compatible with chronic small vessel ischemic disease. These are relatively mild. No masses are identified. There is no hemorrhage. The craniovertebral junction is normal. Major intracranial flow voids are maintained. IMPRESSION 1. Motion degraded exam, but no acute findings are identified. There is no evidence of acute or subacute stroke. No hemorrhage or mass identified. 2. Mild atrophy with relatively mild chronic small vessel ischemic disease in the white matter for patient age. Dictated by... Darian Jean-Baptiste Jr., M.D. [facility] A Service of [facility] RADIOLOGY TEXT RESULTS PATIENT: NICOLE HOLLIS LOCATION: [facility] 560-01 : [birth year] UNIT #: [id number] AGE: [address]: Trever Espinoza MD SEX: F ORDER DR: THIS IS AN ELECTRONICALLY VERIFIED REPORT Darian Jean-Baptiste Jr., M.D. at 10/17/2016 7:22 AM MEENU/lisa TD: 10/14/2016 06:59 JOB #: [id number] MEDICAL IMAGING REPORT Page 1 of 1 COPY
--- NOTE | ~2016-10-12 | MR134 ---
[facility] A Service of [facility] RADIOLOGY TEXT RESULTS PATIENT: NICOLE HOLLIS LOCATION: [facility] 560-01 : 48 UNIT #: [id number] AGE: [address]: Trever Espinoza MD SEX: F ORDER DR: [id number] [facility] [address] [place], [place] [address] [id number] I MR#: [id number] Acc #: [id number] NAME: NICOLE HOLLIS : 1950 SEX: F STUDY DATE/TIME: 10/13/2016 21:32 UNIT: [facility] ROOM: [facility] STUDY DESCRIPTION: MR MRA Neck Wo Contrast Attending Physician: Trever Espinoza M.D. Ordering Physician: Sarah Quigley M.D. Primary Care Physician: David Ramirez M.D. MRI CENTER REPORT This report is preliminary unless electronic signature is present. EXAM MRA neck without HISTORY Intractable headache since yesterday at 03:00 p.m. with weakness. Patient does not speak well. Hodgkin's disease for 4 years. History of hypertension, dialysis. COMMENT MR angiography performed neck vessels without contrast. By NASCET criteria, there is 0% stenosis suspected at either carotid bifurcation. There is a dominant large right vertebral artery and a hypoplastic left vertebral artery. The distal-most aspect of the left vertebral artery is not seen and the vessel may be developmentally small, terminating in a PICA vessel or there may be superimposed disease. IMPRESSION 1. By NASCET criteria, essentially 0% stenosis suspected at either carotid bifurcation. 2. Large dominant right vertebral artery. Left vertebral artery is hypoplastic or diseased. Dictated by... Brittany Hagan M.D. THIS IS AN ELECTRONICALLY VERIFIED REPORT Brittany Hagan M.D. at 10/14/2016 1:23 PM BREANA/lisa TD: 10/14/2016 10:05 JOB #: [id number] [facility] A Service of [facility] RADIOLOGY TEXT RESULTS PATIENT: NICOLE HOLLIS LOCATION: [facility] 560-01 : 48 UNIT #: [id number] AGE: [address]: Trever Espinoza MD SEX: F ORDER DR: MRI CENTER REPORT Page 1 of 1 COPY
[2016-10-12 16:52] LABS: BASOPHIL% 0.3 % (0-2.5); EOSINOPHIL# 0.1 X10e3 (0-0.7); EOSINOPHIL% 0.4 % (0.0-7.0); HEMATOCRIT 33.1 % (35.0-45.0); HEMOGLOBIN 10.9 gm/dL (12.0-16.0); LYMPHOCYTE# 1.1 X10e3 (1.0-3.5); MEAN CORPUSCULAR HEMOGLOBIN 33.7 PG (28-34); MEAN CORPUSCULAR HGB CONC 33.1 g/dL (30-36); MEAN PLATELET VOLUME 8.6 FL (6.5-11.5); MONOCYTE# 1.4 X10e3 (0-1.0); MONOCYTE% 9.5 % (3.0-12.0); NEUTROPHIL# 11.7 X10e3 (1.5-7.1); NEUTROPHIL% 81.8 % (40-75); RED BLOOD COUNT 3.24 X10e (3.90-5.30); RED CELL DISTRIBUTION WIDTH 17.1 % (11.0-15.5); WHITE BLOOD COUNT 14.3 X10e3 (4.0-10.5)
[2016-10-12 16:59] LABS: INR 1.1; PARTIAL THROMBOPLASTIN TIME 25.3 SECONDS (23.5-31.3); PROTHROMBIN TIME (PATIENT) 11.8 SECONDS (9.6-11.5)
[2016-10-12 17:13] LABS: DIFF IND NO; PLATELET COUNT 62 X10e3 (140-420)
[2016-10-12 17:15] LABS: BILIRUBIN, DIRECT 0.4 mg/dL (0.0-0.2); BILIRUBIN,INDIRECT 1.3 mg/dL (0.0-0.9); BILIRUBIN,TOTAL 1.7 mg/dL (0.2-2.0); CALCIUM SERUM 8.7 mg/dL (8.4-10.2); CREATININE SERUM 3.2 mg/dL (0.6-1.4); GLOM FILT RATE Estimated 14.2 mL/min (>60); POTASSIUM 4.2 mmol/L (3.5-5.1); PROTEIN TOTAL SERUM 6.9 g/dL (6.0-8.3)
[2016-10-12 18:04] LABS: POC - CKMB 1.4 ng/mL (0.0-7.9); POC - TROPONIN <0.05 ng/mL (<=0.05)
[2016-10-12 18:20] LABS: POC - CKMB 1.1 ng/mL (0.0-7.9); POC - TROPONIN <0.05 ng/mL (<=0.05)
[~2016-10-12 18:44] MED LIST: ACETAMINOPHEN PO; ALBUTERAL INH; ALBUTEROL MININEB NEB; ALBUTEROL1.25 MG/3 IH; ALBUTEROL17 G1 IH; ALBUTEROL17 GM INH; ALBUTEROL2.5 MG/3 M INH; ALDACTONE; ALDACTONE25 MG PO; AMITRYPTYLINE; ANUSOL-HC25 MG/SUPP RC; ATARAX PO; BENADRYL25 M1 PO; BENTYL20 MG PO; BREO ELLIPTA 21 EACH INH; BUMEX PO; BUMEX1 MG PO; BUMEX2 MG PO; BUSPAR PO; BUSPAR15 M2 PO; BUSPAR15 MG PO; BUSPAR5 M1 PO; BUSPIRONE HCL7.5 MG PO; CALCITRIOL0.25 MCG PO; CALCIUM ACETAT667 M1 PO; CEFTIN PO; CELEXA PO; CELEXA20 MG PO; CEPHALEXIN250 MG PO; COLACE; COLACE PO; DARVOCET-N 1001 TAB PO; DAZIDOX10 MG PO; DIPHENYDRAMINE25 MG PO; DOC-Q-LACE100 MG PO; DOCUSATE SODIU100 MG PO; DOXYCYCLINE PO; EC-NAPROSYN500 MG; ENTOCORT EC3 M1 PO; FAMOTIDINE20 M1 PO; FERRO-TIME325 MG PO; FERROUS SULFATE PO; FLEXERIL PO; FLEXERIL10 MG PO; FOLIC ACID1 MG PO; GLUCOPHAGE XR500 MG; GLUCOTROL PO; HUMALOG100 U/M1 SUBQ; HUMALOG100 U/ML SUBQ; HUMULIN 70/30 PE3 ML SQ; HYDROCODON-ACE1 EAC5 PO; HYDROCODONE-APA1 T33; HYDROCODONE-APA1 T33 PO; IMDUR-ER60 MG PO; IMDUR30 MG PO; INDERAL40 MG PO; IRON325 ( 651 PO; IRON325 ( 652 PO; ISORDIL PO; ISOSORBIDE MONO30 MG PO; JANUVIA25 MG PO; KCL PO; KETOPROFEN PO; LACTULOSE20 GM/30 M PO; LANTUS SOLOSTAR3 ML SUBQ; LANTUS100 U/ML SUBQ; LANTUS100 UNITS/ SUBQ; LASIX PO; LIDOCAINE700 MG TD; LOMOTIL TABLET1 TAB PO; LORTAB 10-3251 EACH PO; LORTAB 5-325 M1 EACH PO; LYRICA; MACROBID 100 M100 MG PO; MAG-OXIDE400 MG PO; MELATONIN5 M1 PO; METOLAZONE2.5 MG PO; MILK OF MAGNESIA PO; MIRALAX17 GM PO; MOBIC PO; MYCOSTATIN POWD15 GM EXT; NOVOLIN 70/30 V10 M1 SQ; NOVOLIN 70/30 V10 ML SUBQ; NOVOLOG100 U/M2 SUBQ; NYSTATIN CREAM TOP; OMEPRAZOLE20 M2 PO; OMEPRAZOLE40 MG PO; OXYCODONE-APAP1 EAC4 PO; OXYGEN; PAIN RELIEF650 MG PO; PAXIL PO; PERCOCET 7.5-31 EACH PO; PHENERGAN PO; POTASSIUM CHLO10 MEQ PO; PRAVACHOL PO; PRAVASTATIN SOD40 MG PO; PREDNISONE PO; PREDNISONE10 MG/DOSE PO; PROAIR HFA8.5 GM IH; PROAIR HFA8.5 GM INH; PROAMATINE10 MG PO; PROMOD946 ML PO; PROPANOLOL PO; PROPRANOLOL; PROTONIX; PROTONIX PO; PROVENTIL0.83 MG/ML IH; PROZAC; PROZAC PO; QUDEXY XR100 MG PO; QVAR PO; QVAR7.3 G1; QVAR7.3 G1 IH; QVAR7.3 G1 INH; ROBITUSSIN A-C S5 ML PO; SIMVASTATIN40 MG PO; STOOL SOFTENER1 EACH PO; STOOL SOFTENER100 M1 PO; SYMBICORT INH; SYNTHROID PO; SYNTHROID125 PO; SYNTHROID137 MCG PO; TOPAMAX PO; TOPIRAMATE100 MG PO; ULTRAM; ULTRAM PO; UNITHROID100 MCG PO; VIBRAMYCIN100 M1 PO; VICODIN 5/500 T1 TAB; VITAMIN D-32000 UNI1 PO; VITAMIN D-32000 UNI2 PO; VITB 12 PO; XANAX0.5 M1 PO; ZAROXYLYN PO; ZEBETA5 M1 PO; ZEBETA5 MG PO; ZESTRIL5 MG PO; ZITHROMAX500 MG PO; ZOFRAN PO; ZYRTEC PO
[2016-10-13 01:48] LABS: CK TOTAL 41 IU/L (26-140)
[2016-10-13 05:51] LABS: HEMATOCRIT 26.1 % (35.0-45.0); LYMPHOCYTE# 0.7 X10e3 (1.0-3.5); LYMPHOCYTE% 7.7 % (17.0-45.0); MEAN CELL VOLUME 101.8 FL (83-96); MEAN CORPUSCULAR HEMOGLOBIN 34.4 PG (28-34); MEAN CORPUSCULAR HGB CONC 33.8 g/dL (30-36); MEAN PLATELET VOLUME 8.5 FL (6.5-11.5); MONOCYTE# 0.3 X10e3 (0-1.0); NEUTROPHIL# 7.8 X10e3 (1.5-7.1); NEUTROPHIL% 89.3 % (40-75); RED BLOOD COUNT 2.56 X10e (3.90-5.30); RED CELL DISTRIBUTION WIDTH 17.6 % (11.0-15.5); WHITE BLOOD COUNT 8.7 X10e3 (4.0-10.5)
[2016-10-13 06:10] LABS: ALBUMIN SERUM 2.5 g/dL (3.5-5.0); BILIRUBIN,TOTAL 1.4 mg/dL (0.2-2.0); BUN/CREATININE RATIO 6.66; CALCIUM SERUM 8.7 mg/dL (8.4-10.2); CREATININE SERUM 3.9 mg/dL (0.6-1.4); GLOM FILT RATE Estimated 11.2 mL/min (>60); MAGNESIUM 1.6 mg/dL (1.6-3.0); PHOSPHOROUS 3.8 mg/dL (2.5-4.6); POTASSIUM 5.2 mmol/L (3.5-5.1); PROTEIN TOTAL SERUM 5.6 g/dL (6.0-8.3)
[2016-10-13 06:40] LABS: HEMOGLOBIN 8.8 gm/dL (12.0-16.0)
[2016-10-13 06:41] LABS: PLATELET COUNT 41 X10e3 (140-420)
[2016-10-13 06:42] LABS: DIFF IND YES
[2016-10-13 06:45] LABS: PLATELET ESTIMATE DECREASED (NORMAL)
[2016-10-13 06:46] LABS: ANISOCYTOSIS MOD; HYPOCHROMIA SL; OVALOCYTES PRESENT
[2016-10-13 07:07] LABS: %MB 6.7 % (0.0-4.0); MB 4.8 ng/ml
[2016-10-14 07:45] LABS: HEMATOCRIT 25.8 % (35.0-45.0); HEMOGLOBIN 8.5 gm/dL (12.0-16.0); MEAN CELL VOLUME 103.7 FL (83-96); MEAN CORPUSCULAR HEMOGLOBIN 34.2 PG (28-34); MEAN CORPUSCULAR HGB CONC 32.9 g/dL (30-36); MEAN PLATELET VOLUME 9.3 FL (6.5-11.5); RED BLOOD COUNT 2.49 X10e (3.90-5.30); WHITE BLOOD COUNT 8.7 X10e3 (4.0-10.5)
[2016-10-14 08:16] LABS: ALBUMIN SERUM 2.4 g/dL (3.5-5.0); BILIRUBIN,TOTAL 0.9 mg/dL (0.2-2.0); BUN/CREATININE RATIO 8.7; CALCIUM SERUM 8.4 mg/dL (8.4-10.2); CREATININE SERUM 5.4 mg/dL (0.6-1.4); GLOM FILT RATE Estimated 7.5 mL/min (>60); POTASSIUM 3.8 mmol/L (3.5-5.1); PROTEIN TOTAL SERUM 5.6 g/dL (6.0-8.3)
[2016-10-14 08:21] LABS: FERRITIN 327 ng/mL (11-307)
[2016-10-14 09:02] LABS: HEMATOCRIT 25.2 % (35.0-45.0); HEMOGLOBIN 8.4 gm/dL (12.0-16.0); MEAN CELL VOLUME 103.8 FL (83-96); MEAN CORPUSCULAR HEMOGLOBIN 34.5 PG (28-34); MEAN CORPUSCULAR HGB CONC 33.2 g/dL (30-36); RED BLOOD COUNT 2.43 X10e (3.90-5.30); RED CELL DISTRIBUTION WIDTH 17.3 % (11.0-15.5); WHITE BLOOD COUNT 8.4 X10e3 (4.0-10.5)
[2016-10-14 09:28] LABS: INR 1.3; PARTIAL THROMBOPLASTIN TIME 26.3 SECONDS (23.5-31.3); PROTHROMBIN TIME (PATIENT) 13.3 SECONDS (9.6-11.5)
[2016-10-14 10:47] LABS: URINE SOURCE CLEAN CATCH
[2016-10-14 10:54] LABS: URINE APPEARANCE CLEAR; URINE BILIRUBIN NEG (NEG); URINE BLOOD 2+ (NEG); URINE COLOR DK YELLOW; URINE GLUCOSE 100 MG/DL (NEG); URINE KETONE TRACE (NEG); URINE LEUKOCYTE ESTERASE TRACE (NEG); URINE NITRATE NEG (NEG); URINE PROTEIN TRACE (NEG)
[2016-10-14 10:57] LABS: URINE BACTERIA AUWI NEG (NEGATIVE); URINE SQUAMOUS EPITHELIAL CELL OCC /[HPF]
[2016-10-14 11:25] LABS: CULTURE INDICATED? NO
[2016-10-14 11:27] LABS: U HYALINE CASTS AUWI 0-2 /[LPF]
[2016-10-15 05:47] LABS: HEMATOCRIT 24.8 % (35.0-45.0); HEMOGLOBIN 8.3 gm/dL (12.0-16.0); MEAN CELL VOLUME 103.3 FL (83-96); MEAN CORPUSCULAR HEMOGLOBIN 34.7 PG (28-34); MEAN CORPUSCULAR HGB CONC 33.6 g/dL (30-36); RED BLOOD COUNT 2.4 X10e (3.90-5.30); RED CELL DISTRIBUTION WIDTH 17.5 % (11.0-15.5); WHITE BLOOD COUNT 7.1 X10e3 (4.0-10.5)
[2016-10-15 07:12] LABS: ALBUMIN SERUM 2.4 g/dL (3.5-5.0); BILIRUBIN,TOTAL 0.6 mg/dL (0.2-2.0); BUN/CREATININE RATIO 8.91; CALCIUM SERUM 8.5 mg/dL (8.4-10.2); CREATININE SERUM 3.7 mg/dL (0.6-1.4); GLOM FILT RATE Estimated 11.9 mL/min (>60); MAGNESIUM 1.8 mg/dL (1.6-3.0); PROTEIN TOTAL SERUM 5.5 g/dL (6.0-8.3)
[2016-10-15 17:50] LABS: BUN/CREATININE RATIO 10.69; CALCIUM SERUM 8.5 mg/dL (8.4-10.2); CREATININE SERUM 4.3 mg/dL (0.6-1.4); GLOM FILT RATE Estimated 9.9 mL/min (>60); POTASSIUM 3.9 mmol/L (3.5-5.1)
[2016-10-16 08:28] LABS: HEMATOCRIT 28.2 % (35.0-45.0); HEMOGLOBIN 9.3 gm/dL (12.0-16.0); MEAN CELL VOLUME 104.5 FL (83-96); MEAN CORPUSCULAR HEMOGLOBIN 34.6 PG (28-34); MEAN CORPUSCULAR HGB CONC 33.1 g/dL (30-36); MEAN PLATELET VOLUME 8.9 FL (6.5-11.5); RED BLOOD COUNT 2.7 X10e (3.90-5.30); RED CELL DISTRIBUTION WIDTH 17.8 % (11.0-15.5); WHITE BLOOD COUNT 9.6 X10e3 (4.0-10.5)
[2016-10-16 08:57] LABS: ALBUMIN SERUM 2.4 g/dL (3.5-5.0); BILIRUBIN,TOTAL 0.6 mg/dL (0.2-2.0); BUN/CREATININE RATIO 11.91; CALCIUM SERUM 8.8 mg/dL (8.4-10.2); CREATININE SERUM 4.7 mg/dL (0.6-1.4); GLOM FILT RATE Estimated 8.9 mL/min (>60); POTASSIUM 4.1 mmol/L (3.5-5.1); PROTEIN TOTAL SERUM 5.9 g/dL (6.0-8.3)
[2016-10-16] MEDS ORDERED: DULERA 200 MCG/13 GM INH (12:25)
[2016-10-16] MEDS ORDERED: ULTRAM PO (12:28)
[2016-10-16] MEDS ORDERED: CEFTIN PO (12:31)
[2016-10-18 07:27] LABS: HEPATITIS B SURFACE ANTIBODY 18 mIU/mL (>=10)
== END 2016-10-16 15:17 | disposition home health service (06) | DRG 871 ==
LOC: CED 18:44 → CEDOF 18:45 → C5B 10-13 01:37
PROVIDERS: Emergency Medicine; Family Medicine; Internal Medicine Hematology; Internal Medicine Nephrology; Radiology Diagnostic Radiology
PROC: 03H733Z Insertion of Infusion Device into Right Brachial Artery, Percutaneous Approach (ICD-10-PCS; principal; 2016-10-12)
PROC: 30253K1 (ICD-10-PCS; 2016-10-13)
PROC: 30253K1 (ICD-10-PCS; 2016-10-14)
PROC: 30253K1 (ICD-10-PCS; 2016-10-14)
PROC: 5A1D00Z (ICD-10-PCS; 2016-10-14)
DX: A41.89 Other specified sepsis (principal); N18.6 End stage renal disease; I13.2 Hypertensive heart and chronic kidney disease with heart failure and with stage 5 chronic kidney disease, or end stage renal disease; J96.10 Chronic respiratory failure, unspecified whether with hypoxia or hypercapnia; D61.818 Other pancytopenia; C85.90 Non-Hodgkin lymphoma, unspecified, unspecified site; N39.0 Urinary tract infection, site not specified; I50.30 Unspecified diastolic (congestive) heart failure; B96.4 Proteus (mirabilis) (morganii) as the cause of diseases classified elsewhere; R51 Headache; E11.22 Type 2 diabetes mellitus with diabetic chronic kidney disease; E11.65 Type 2 diabetes mellitus with hyperglycemia; I48.0 Paroxysmal atrial fibrillation; J44.9 Chronic obstructive pulmonary disease, unspecified; K74.69 Other cirrhosis of liver; E78.5 Hyperlipidemia, unspecified; I25.10 Atherosclerotic heart disease of native coronary artery without angina pectoris; G47.33 Obstructive sleep apnea (adult) (pediatric); E03.9 Hypothyroidism, unspecified; I89.0 Lymphedema, not elsewhere classified; Z99.2 Dependence on renal dialysis; Z77.22 Contact with and (suspected) exposure to environmental tobacco smoke (acute) (chronic); Z79.51 Long term (current) use of inhaled steroids; Z79.4 Long term (current) use of insulin; Z79.899 Other long term (current) drug therapy; Z99.81 Dependence on supplemental oxygen
CPT/HCPCS: 36415; 51702; 70450; 70544; 70547; 70551; 71010; 76770; 80048; 80053; 80076; 80202; 81003; 82550; 82553; 82607; 82728; 82947; 83540; 83550; 83605; 83735; 84100; 84443; 84484; 85025; 85027; 85610; 85652; 85730; 86705; 86706; 86707; 86850; 86900; 86901; 87040; 87077; 87086; 87186; 87340; 87350; 93005; 94760; 96374; 96375; 99285; J0290; J0696; J1100; J1170; J1644; J1815; J2060; J2270; J2405; J3370; P9035; Q4081

== ENCOUNTER 2016-10-26 08:51 | Emergency (ER) | payer MEDICARE, BC ==
--- NOTE | ~2016-10-26 | EKG ---
PATIENT: NICOLE HOLLIS UNIT #: [id number] Ventricular Rate: 95 BPM Atrial Rate: 95 BPM P-R Interval: 160 ms QRS Duration: 78 ms Q-T Interval: 404 ms QTC Calculation(Bezet): 507 ms P [place]: 94 degrees Calculated R [place]: 95 degrees Calculated T [place]: 69 degrees Diagnosis Line: Suspect arm lead reversal, interpretation Diagnosis Line: assumes no reversal Diagnosis Line: Normal sinus rhythm Diagnosis Line: Rightward axis Diagnosis Line: Prolonged QT Diagnosis Line: Abnormal ECG Diagnosis Line: When compared with ECG of 12-OCT-2016 17:04, Diagnosis Line: Premature atrial complexes are no longer Present Diagnosis Line: Confirmed by GANGA FLOWERS, BERNICE ([id number]) on 10/26/2016 Diagnosis Line: 10:43:24 PM INTERPRETING MD: GANGA FLOWERS
--- NOTE | ~2016-10-26 | CR72 ---
[facility] A Service of [facility] RADIOLOGY TEXT RESULTS PATIENT: NICOLE HOLLIS LOCATION: [facility] : 48 UNIT #: [id number] AGE: [address]: Darian Driver MD SEX: F ORDER DR: [id number] [facility] [address] [place], [place] [address] [id number] E MR#: [id number] Acc #: [id number] NAME: NICOLE HOLLIS : 1950 SEX: F STUDY DATE/TIME: 10/26/2016 9:05 UNIT: [facility] ROOM: STUDY DESCRIPTION: CR Chest Single View Portable Attending Physician: Darian Driver M.D. Ordering Physician: Darian Driver M.D. Primary Care Physician: David Ramirez M.D. MEDICAL IMAGING REPORT This report is preliminary unless electronic signature is present EXAM Portable chest, 10/26 COMPARISON 10/12 HISTORY Shortness of air. Bilateral lower extremity weakness. Dialysis today. Symptoms began yesterday. FINDINGS A portable view of the chest was obtained. The heart size and vascularity are normal and the lungs are clear. There are calcified granulomas bilaterally. Dual lumen central venous catheter has its tips in the right atrium and superior vena cava. The bones are unremarkable. IMPRESSION No active disease. Dictated by... Iker Krause M.D. THIS IS AN ELECTRONICALLY VERIFIED REPORT Iker Krause M.D. at 10/27/2016 7:17 AM RAGHU/jhonathan TD: 10/26/2016 10:28 JOB #: [id number] MEDICAL IMAGING REPORT Page 1 of 1 COPY
[~2016-10-26 08:51] MED LIST changes: +DULERA 200 MCG/13 GM INH
[2016-10-26 09:34] LABS: BASOPHIL% 0.6 % (0-2.5); EOSINOPHIL% 0.5 % (0.0-7.0); HEMATOCRIT 28.9 % (35.0-45.0); HEMOGLOBIN 9.5 gm/dL (12.0-16.0); LYMPHOCYTE# 0.6 X10e3 (1.0-3.5); LYMPHOCYTE% 11.1 % (17.0-45.0); MEAN CELL VOLUME 102.3 FL (83-96); MEAN CORPUSCULAR HEMOGLOBIN 33.6 PG (28-34); MEAN CORPUSCULAR HGB CONC 32.9 g/dL (30-36); MEAN PLATELET VOLUME 9.6 FL (6.5-11.5); MONOCYTE# 0.6 X10e3 (0-1.0); MONOCYTE% 10.2 % (3.0-12.0); NEUTROPHIL# 4.5 X10e3 (1.5-7.1); NEUTROPHIL% 77.6 % (40-75); RED BLOOD COUNT 2.83 X10e (3.90-5.30); RED CELL DISTRIBUTION WIDTH 17.4 % (11.0-15.5); WHITE BLOOD COUNT 5.8 X10e3 (4.0-10.5)
[2016-10-26 09:45] LABS: POC - CKMB 1.8 ng/mL (0.0-7.9); POC - TROPONIN <0.05 ng/mL (<=0.05)
[2016-10-26 10:05] LABS: ALBUMIN SERUM 2.6 g/dL (3.5-5.0); BILIRUBIN, DIRECT 0.3 mg/dL (0.0-0.2); BILIRUBIN,INDIRECT 0.8 mg/dL (0.0-0.9); BILIRUBIN,TOTAL 1.1 mg/dL (0.2-2.0); BUN/CREATININE RATIO 8.33; CALCIUM SERUM 8.6 mg/dL (8.4-10.2); CREATININE SERUM 4.8 mg/dL (0.6-1.4); DIFF IND YES; GLOM FILT RATE Estimated 8.7 mL/min (>60); PLATELET COUNT 44 X10e3 (140-420); POTASSIUM 4.3 mmol/L (3.5-5.1); PROTEIN TOTAL SERUM 5.7 g/dL (6.0-8.3)
[2016-10-26 10:19] LABS: PLATELET ESTIMATE DECREASED (NORMAL)
[2016-10-26 10:20] LABS: ANISOCYTOSIS MOD; POIKILOCYTOSIS SL
[2016-10-26 11:04] LABS: POC - CKMB 1.8 ng/mL (0.0-7.9); POC - TROPONIN <0.05 ng/mL (<=0.05)
== END 2016-10-26 12:34 | disposition home or self-care (01) ==
LOC: CED 08:51
PROVIDERS: Emergency Medicine
DX: E11.65 Type 2 diabetes mellitus with hyperglycemia (principal); I13.2 Hypertensive heart and chronic kidney disease with heart failure and with stage 5 chronic kidney disease, or end stage renal disease; I50.9 Heart failure, unspecified; N18.6 End stage renal disease; E11.22 Type 2 diabetes mellitus with diabetic chronic kidney disease; J44.9 Chronic obstructive pulmonary disease, unspecified; I48.91 Unspecified atrial fibrillation; Z88.2 Allergy status to sulfonamides; Z88.5 Allergy status to narcotic agent; Z79.899 Other long term (current) drug therapy
CPT/HCPCS: 36415; 71010; 80048; 80076; 82553; 83880; 84484; 85025; 93005; 99283

== ENCOUNTER 2016-11-02 19:39 | Inpatient (IN) | payer MEDICARE, BC ==
--- NOTE | ~2016-11-02 | CT71 ---
[facility] A Service of [facility] RADIOLOGY TEXT RESULTS PATIENT: NICOLE HOLLIS LOCATION: [facility] : 48 UNIT #: [id number] AGE: [address]: Radhika Torrez MD SEX: F ORDER DR: [id number] [facility] [address] [place], [place] [address] [id number] E MR#: [id number] Acc #: [id number] NAME: NICOLE HOLLIS : 1950 SEX: F STUDY DATE/TIME: 11/02/2016 20:23 UNIT: [facility] ROOM: STUDY DESCRIPTION: CT Head Wo Contrast Attending Physician: Radhika Torrez M.D. Ordering Physician: Radhika Torrez M.D. Primary Care Physician: David Ramirez M.D. MEDICAL IMAGING REPORT This report is preliminary unless electronic signature is present EXAM CT head 11/02/16 INDICATIONS Weakness for 3 days with headache. FINDINGS Axial images were obtained from base to vertex without contrast. Comparison made with 10/12/2016. This CT exam was performed with one or more of the following radiation dose reduction techniques: automatic exposure control, adjustment of mA and/or kV according to patient size, and iterative reconstruction. Ventricular size configuration remain normal. There is no acute infarct or hemorrhage. There are no masses. There are no skull fractures. Atherosclerotic disease noted in the carotid siphons. IMPRESSION Negative noncontrast head CT. Dictated by... Darian Jean-Baptiste Jr., M.D. THIS IS AN ELECTRONICALLY VERIFIED REPORT Darian Jean-Baptiste Jr., M.D. at 11/02/2016 11:05 PM MEENU/katelynn TD: 11/02/2016 21:04 JOB #: [id number] [facility] A Service of [facility] RADIOLOGY TEXT RESULTS PATIENT: NICOLE HOLLIS LOCATION: [facility] : 48 UNIT #: [id number] AGE: [address]: Radhika Torrez MD SEX: F ORDER DR: MEDICAL IMAGING REPORT Page 1 of 1 COPY
--- NOTE | ~2016-11-02 | DS ---
Unit #: [id number] #: [id number] Patient: NICOLE LINO [id number] [address] [address] [id number] I MR#: [id number] NAME: NICOLE LINO ROOM: 8 Age: 66 Sex: F Admission Date: 11/02/2016 : 1950 Discharge Date: 11/04/2016 Attending Physician: Bettina Alexis M.D. Primary Care Physician: David Ramirez M.D. DISCHARGE SUMMARY PRINCIPAL DIAGNOSES 1. ESBL producing e-coli urinary tract infection. 2. Toxic metabolic encephalopathy secondary to number one, now resolved. 3. Stage 2 sacral pressure ulcer, present on admission. 4. Endstage renal disease, maintained on hemodialysis Monday, Monday and Monday. 5. Cirrhosis secondary to HOWELL. 6. Chronic thrombocytopenia secondary to cirrhosis. Discharge platelet count 43,000. 7. Lymphedema of the lower extremities, chronic. 8. Diabetes mellitus type 2, insulin requiring, with associated hyperglycemia. 9. Chronic obstructive pulmonary disease. 10. Moderate protein malnutrition. 11. Obesity. 12. Anemia of chronic kidney disease. 13. Hypothyroidism. 14. Paroxysmal atrial fibrillation. Not on anticoagulation secondary to chronic thrombocytopenia. 15. Chronic diastolic congestive heart failure. Ejection fraction of 50%-55%. No acute exacerbation. 16. History of non-Hodgkin lymphoma. 17. Hypertension. CONSULTANTS Dr. Dong, nephrology. PROCEDURES PERFORMED Hemodialysis on 11/04/2016, which is currently pending. DIAGNOSTIC DATA IMAGING: CT scan of the abdomen and pelvis without contrast on 11/03/2016, with no acute findings. Cirrhosis as noted. Nonobstructing calculi of the left kidney noted. CT of the head without contrast on 11/02/2016 which was negative for any acute findings. Chest x-ray on 11/02/2016 with granulomatous disease, no acute findings. CLINICAL HISTORY/HOSPITAL COURSE Ms. Lino is a 56-year-old female who was brought to the emergency department with increasing weakness and confusion. Please refer to history and physical for further details. Urinalysis in the emergency Unit #: [id number] #: [id number] Patient: NICOLE LINO department was concerning for urinary tract infection. CT scan of the head was unremarkable. The patient was subsequently admitted. The patient was placed on empiric Rocephin for urinary tract infection. However, urine culture ultimately grew ESBL producing e-coli and she has been changed to Merrem therapy. After a dose of antibiotics the patient has significantly improved. Her encephalopathy has resolved and she has returned to baseline. She is currently in the process of having midline placed and will continue Merrem therapy as an outpatient for a total of one week. Dr. Dong was consulted regarding the patient's endstage renal disease. She is to dialyze today. Renal function appears at baseline. The patient's other chronic conditions all appear relatively stable. She does have a stage 2 pressure ulcer, for which she was seen by wound care. We will continue the care as an outpatient as will be outlined below. She also is weak and will have physical therapy via home health as well. She will be discharged home later today. DISCHARGE CONDITION Stable. DISPOSITION Discharge to home with home health. DISCHARGE MEDICATIONS 1. Merrem 500 mg IV q.24 h. To stop after dose on 11/10/2016. 2. Calcium acetate 667 mg p.o. t.i.d. 3. Levothyroxine 125 mcg p.o. daily. 4. Tramadol 50 mg p.o. q.8 h. p.r.n. pain. 5. Famotidine 20 mg daily. 6. Levemir 30 units subcutaneous b.i.d. 7. Dulera 200/5 mcg 2 puffs b.i.d. 8. Zofran 4 mg p.o. q.8 h. p.r.n. nausea. 9. Paxil 20 mg daily. 10. Tylenol 500 mg p.o. t.i.d. p.r.n. pain. 11. Lactulose 30 ml p.o. daily. 12. Albuterol sulfate nebulizer solutions 3 ml q.4-6 h. p.r.n. for shortness of breath. 13. ProMod 30 ml p.o. at bedtime. DIET Heart-healthy, low-calorie, constant-carb diet. She will continue Accu-Cheks morning and evening at home. ACTIVITY Increase as tolerated. DISCHARGE INSTRUCTIONS 1. She will have discontinuation of midline after last dose of antibiotics. 2. In regard to her sacral region, she is cleansing the buttocks and sacral area with foam cleanser b.i.d. and p.r.n. incontinence. 3. SensiCare number three and number two mixed equally together and applied to the buttock and sacral region b.i.d. and p.r.n. 4. Cover with Mepitel to prevent the patient from sticking to sheets. 5. Elevate bilateral extremities when out of bed. Unit #: [id number] #: [id number] Patient: NICOLE LINO 6. Apply stock SensiCare cream number two to bilateral lower extremities daily. 7. Waffle cushion when out of bed. FOLLOWUP 1. The patient will follow up with Dr. Ramirez in one week. 2. She will continue to do hemodialysis Monday, Monday and Monday. 3. Follow up with nephrology as previously scheduled. Time spent on discharge was 32 minutes. Dictated by... Bettina Alexis M.D. TAYLOR/angie TD: 11/04/2016 09:07 JOB #: [id number] DISCHARGE SUMMARY Page 1 of 1 X Bettina Alexis MD X DISCHARGE SUMMARY
--- NOTE | ~2016-11-02 | HP ---
Unit #: [id number] #: [id number] Patient: NICOLE HOLLIS [id number] [address] [address] [id number] I MR#: [id number] NAME: NICOLE HOLLIS ROOM: 54 Age: 66 Sex: F Admission Date: 11/02/2016 : 1950 Attending Physician: Kenzie Crisostomo M.D. Primary Care Physician: David Ramirez M.D. HISTORY AND PHYSICAL CHIEF COMPLAINT Weakness, pyuria. HISTORY This 66-year-old female, HOWELL, end stage renal failure, COPD, AODM, is admitted for weakness. The patient is a somewhat poor historian. States that she began to feel weaker two weeks ago, much worse over the past 24 hours. Notes dizziness but really no other symptoms besides a sacral decub. Denies urinary symptoms with the above. She presented to this emergency department this evening with stable vital signs. She appears to be extremely weak on exam and perhaps mildly confused. Workup shows that she does have significant pyuria. In the ER, she was treated with Tylenol and Rocephin, referred for admission. The patient was last admitted 10/12/2016 for headache. She was found to have 1 out of 2 blood cultures positive for Proteus mirabilis and was treated with Ceftin. PAST MEDICAL HISTORY 1. End stage renal failure, on hemodialysis Mondays, Wednesdays and Fridays through Dr. Dong. 2. COPD, followed by Dr. Whalen and obstructive sleep apnea, not on BiPAP or CPAP. 3. History of congestive heart failure with ejection fraction of 50% to 55% and paroxysmal atrial fibrillation, not anticoagulated due to chronic pancytopenia. 4. Non-Hodgkin lymphoma, treated with chemotherapy at age 20 without recurrence. The patient does have a history of pancytopenia with negative bone marrow biopsy. 5. HOWELL with cirrhosis. 6. AODM. 7. Hypertension. 8. Hyperlipidemia. 9. Hypothyroidism. 10. Chronic lymphedema. 11. Cataract extraction. 12. Gastric bypass. 13. Cholecystectomy. 14. BTL. 15. Tonsillectomy. 16. Abdominoplasty. 17. Bilateral arm surgery. Unit #: [id number] #: [id number] Patient: NICOLE HOLLIS ALLERGIES Sulfa, morphine and Neurontin. HOME MEDICATIONS Possibly the followin. Pepcid 20 mg daily. 2. Lactulose 30 mL daily. 3. Synthroid 0.125 mg q. a.m. 4. Paxil 20 mg daily. 5. ProMod. 6. Ultram 50 mg t.i.d. as needed. 7. Xanax 0.25 mg t.i.d. with 0.5 q. h.s. as needed. 8. Zofran 4 mg p.r.n. 9. Dulera 200/5, 200 mcg inhaled b.i.d. 10. P.r.n. Tylenol. 11. Venofer. 12. Mircera IV with dialysis every two weeks. FAMILY HISTORY CAD. SOCIAL HISTORY The patient lives with her daughter and son. She is a lifelong nonsmoker, does not drink alcohol. REVIEW OF SYSTEMS Difficult to obtain. The patient admits to dizziness, weakness, dialysis, COPD, HOWELL, hypertension, above mentioned surgeries. All other systems were reviewed and otherwise negative. PHYSICAL EXAMINATION GENERAL APPEARANCE: 66-year-old, obese female, who looks to be weak and fatigued. VITAL SIGNS: Temperature 97.5, pulse 94, respirations 15, blood pressure 113/59. O2 saturation is 100% on room air. HEENT: Eyes PERRLA. Extraocular muscles are intact. Status post bilateral cataract extractions. Pharynx - dry mucosal membranes. NECK: Supple without adenopathy or thyromegaly. CHEST: Fairly clear. BACK: Without CVA tenderness. CARDIAC: Normal S1 and S2, occasionally irregular with a soft murmur. There is a dialysis catheter in the right upper chest with clean, dry exit site. ABDOMEN: Bowel sounds are present. The patient has generalized abdominal tenderness without rebound, guarding. No hepatosplenomegaly or masses. EXTREMITIES: Notable for bilateral lymphedema. Pedal pulses are diminished. No ulcers on the feet. SKIN EXAM: Reveals stage 2 sacral decub. NEUROLOGIC EXAM: The patient is awake, alert. She seems to be very fatigued. Her cranial nerves are intact. She has equal strength throughout but quite weak on exam. DIAGNOSTIC STUDIES LABORATORY: Admission labs - hematocrit is 31.1 which is improved. Normal white count. Platelet count is 43 which is chronic. MCV is 100. Coags normal. Unit #: [id number] #: [id number] Patient: NICOLE HOLLIS SMA-12 - glucose 115, albumin is 2.9, alkaline phos. 199. Cardiac markers are negative. Urine tox screen negative. Urinalysis - positive leukocyte esterase and protein with 5-10 red cells, innumerable white cells and 4+ bacteria. IMAGING: Head CT - no acute disease. Chest x-ray shows old granulomatous disease. CARDIOVASCULAR: EKG shows sinus rhythm with APCs and occasional PVC. Heart rate 98. Somewhat prolonged QT interval. Cardiac enzymes are negative. ASSESSMENT 1. Weakness, could be related to urinary tract infection but will certainly workup further and treat her urinary tract infection. 2. Urinary tract infection. 3. Recent admission in October with 1 out of 2 positive blood cultures for Proteus mirabilis, treated with Ceftin. 4. End stage renal failure on hemodialysis Mondays, Wednesdays and Fridays with a dialysis catheter right chest. 5. Nonalcoholic steatohepatitis with portal hypertension and cirrhosis. 6. Hypothyroidism. 7. Adult onset diabetes mellitus. 8. Chronic obstructive pulmonary disease and obstructive sleep apnea. 9. Paroxysmal atrial fibrillation, currently in a normal sinus rhythm with normal left ventricular function and history of coronary artery disease per old records. 10. Non-Hodgkin lymphoma treated at age 20 with history of pancytopenia and negative bone marrow aspirate. 11. Chronic lymphedema. 12. Stage 2 sacral decub. PLANS 1. Blood cultures, check ammonia level, and obtain CT scan of the abdomen given tenderness. 2. Cefepime pending cultures. 3. Nephrology consultation. 4. SCDs for DVT prophylaxis. 5. Hold Ultram and Xanax. 6. Further workup depending on above. Dictated by Kenzie Crisostomo M.D. AML/df TD: 11/03/2016 05:17 JOB #: [id number] Unit #: [id number] #: [id number] Patient: NICOLE HOLLIS HISTORY AND PHYSICAL Page 1 of 1 X Kenzie Crisostomo MD HISTORY AND PHYSICAL
--- NOTE | ~2016-11-02 | CT4 ---
[facility] A Service of [facility] RADIOLOGY TEXT RESULTS PATIENT: NICOLE HOLLIS LOCATION: [facility] 548 : 48 UNIT #: [id number] AGE: [address]: Bettina Alexis MD SEX: F ORDER DR: [id number] [facility] [address] [place], [place] [address] [id number] I MR#: [id number] Acc #: [id number] NAME: NICOLE HOLLIS : 1950 SEX: F STUDY DATE/TIME: 11/03/2016 8:37 UNIT: [facility] ROOM: [facility] STUDY DESCRIPTION: CT Abd and Pelv Wo Cont Attending Physician: Bettina Alexis M.D. Ordering Physician: Kenzie Crisostomo M.D. Primary Care Physician: David Ramirez M.D. MEDICAL IMAGING REPORT This report is preliminary unless electronic signature is present EXAM CT abdomen and pelvis without contrast INDICATION Weakness. Generalized weakness. Urinary tract infections for the past 2 weeks, worsening over the past 2 days. Lower abdominal pain for the past [address] of the abdomen and pelvis. TECHNIQUE This CT exam was performed with one or more of the following radiation dose reduction techniques: automatic exposure control, adjustment of mA and/or kV according to patient size, and iterative reconstruction. COMPARISON 09/17/2015 FINDINGS ABDOMEN WITHOUT CONTRAST: Cirrhotic morphology of the liver. No liver lesions seen on this unenhanced study. The spleen enlarged measuring 14.6 cm. No significant ascites. 1.5 cm indeterminate left adrenal nodule is stable. Pancreas is atrophic but shows no acute abnormality. Previous hysterectomy. The bowel loops are nondilated. The appendix is nondilated. There is nonspecific haziness in the central mesentery. This is unchanged from the previous study. There are tiny nonobstructing calculi in the left kidney. Small left renal cyst measures 1.5 cm. [facility] A Service [facility] RADIOLOGY TEXT RESULTS PATIENT: NICOLE HOLLIS LOCATION: [facility] : 48 UNIT #: [id number] AGE: [address]: Bettina Alexis MD SEX: F ORDER DR: PELVIS WITHOUT CONTRAST: No pelvic mass or fluid. No radiodense ureteral calculus. No radiodense bladder calculus. No aggressive appearing bone lesion. IMPRESSION 1. No clearly acute findings. 2. Cirrhosis. 3. Small nonobstructing calculi in the left kidney. No obstructing ureteral calculus or hydronephrosis. 4. Haziness in the central mesentery is a nonspecific finding but very similar to the previous study. Dictated by... Yosi Dwyer M.D. THIS IS AN ELECTRONICALLY VERIFIED REPORT Yosi Dwyer M.D. at 11/04/2016 7:06 AM Jose TD: 11/03/2016 10:53 JOB #: [id number] MEDICAL IMAGING REPORT Page 1 of 1 COPY
--- NOTE | ~2016-11-02 | EKG ---
PATIENT: NICOLE HOLLIS UNIT #: [id number] Ventricular Rate: 97 BPM Atrial Rate: 97 BPM P-R Interval: 162 ms QRS Duration: 82 ms Q-T Interval: 412 ms QTC Calculation(Bezet): 523 ms P [place]: 56 degrees Calculated R [place]: 79 degrees Calculated T [place]: 64 degrees Diagnosis Line: Sinus rhythm with Premature atrial complexes Diagnosis Line: Premature ventricular complexes Diagnosis Line: Prolonged QT Diagnosis Line: Abnormal ECG Diagnosis Line: When compared with ECG of 26-OCT-2016 09:18, Diagnosis Line: Aberrant conduction is now Present Diagnosis Line: Confirmed by LAVERNE GAONA MD ([id number]) on 11/06/2016 Diagnosis Line: 3:52:36 PM INTERPRETING MD: JIMENEZ FLOWERS
--- NOTE | ~2016-11-02 | CR72 ---
[facility] A Service of [facility] RADIOLOGY TEXT RESULTS PATIENT: NICOLE HOLLIS LOCATION: [facility] : 48 UNIT #: [id number] AGE: [address]: Radhika Torrez MD SEX: F ORDER DR: [id number] [facility] [address] [place], [place] [address] [id number] E MR#: [id number] Acc #: [id number] NAME: NICOLE HOLLIS : 1950 SEX: F STUDY DATE/TIME: 11/02/2016 19:02 UNIT: [facility] ROOM: STUDY DESCRIPTION: CR Chest Single View Portable Attending Physician: Radhika Torrez M.D. Ordering Physician: Radhika Torrez M.D. Primary Care Physician: David Ramirez M.D. MEDICAL IMAGING REPORT This report is preliminary unless electronic signature is present EXAM Portable chest, 11/02 INDICATIONS Shortness of air with activity and weakness that started 3 days ago. History of lymphoma and hypertension. FINDINGS AP portable chest is compared with 10/26/2016. Cardiac and mediastinal contours are normal. Dialysis catheter tip at the cavoatrial junction. There are scattered granulomatous calcifications on both sides of the chest. Lungs are otherwise clear and there is no pneumothorax. IMPRESSION Old granulomatous disease. No acute findings in the chest. Dictated by... Darian Jean-Baptiste Jr., M.D. THIS IS AN ELECTRONICALLY VERIFIED REPORT Darian Jean-Baptiste Jr., M.D. at 11/02/2016 11:05 PM MEENU/donald TD: 11/02/2016 20:42 JOB #: [id number] MEDICAL IMAGING REPORT Page 1 of 1 COPY
--- NOTE | ~2016-11-02 | CO ---
Unit #: [id number] #: [id number] Patient: NICOLE LINO [id number] [address] [address] [id number] I MR#: [id number] NAME: NICOLE LINO ROOM: 548 Age: 66 Sex: F Admission Date: 11/02/2016 : 1950 Attending Physician: Bettina Alexis M.D. Primary Care Physician: David Ramirez M.D. Consultation Date: 11/03/2016 CONSULTATION REPORT REASON FOR CONSULTATION Endstage renal disease. HISTORY OF PRESENT ILLNESS Ms. Lino is a 66-year-old female with a history of endstage renal disease on hemodialysis every Monday, Monday and Monday since 06/2016, using a tunnelled catheter now, but Kenton-William is ready to use. She presented to the hospital after dialysis yesterday, where she became very weak and tired and a little more confusion. She was admitted. She was noted to have a urinary tract infection here and was placed on Maxipime as well. She states again she has been on and off wean for the last few days, but worse after dialysis. She denies any chest pain or significant shortness of breath. She is still having intermittent headaches. She has occasional nausea recently, no vomiting. She has chronic lower extremity swelling. PAST MEDICAL HISTORY 1. Endstage renal disease. Again, hemod[facility] Monday[facility]. 2. Chronic obstructive pulmonary disease. 3. Obstructive sleep apnea. 4. Atrial fibrillation. 5. Cirrhosis. 6. Pancytopenia. 7. Hodgkin lymphoma. 8. Hypothyroidism. 9. Hypertension. 10. diastolic congestive heart failure. 11. Hyperlipidemia. 12. Chronic lymphedema. 13. Morbid obesity. SOCIAL HISTORY No smoking or alcohol use. FAMILY HISTORY Noncontributory. ALLERGIES Sulfa, morphine and gabapentin. HOME MEDICATIONS 1. Famotidine 20 mg daily. 2. Lactulose 30 mL daily. Unit #: [id number] #: [id number] Patient: NICOLE LINO 3. Synthroid 125 mcg daily. 4. Paxil 20 mg daily. 5. ProMod 30 ml daily. 6. Ultram p.r.n. pain. 7. Xanax 0.25 mg p.r.n. q.8 h. 8. Zofran p.r.n. REVIEW OF SYSTEMS As mentioned in history of present illness. Otherwise negative. PHYSICAL EXAMINATION GENERAL: The patient currently appears to be alert and oriented. VITALS: T-max 98.4, pulse 87-100, systolic blood pressure 110-132/40s-50s. HEENT: Normocephalic, atraumatic. Pupils are equal, round and reactive to light. Extraocular muscles are intact. Hearing appears to be normal. Mouth is clear. No erythema. No exudate. NECK: Supple. No adenopathy. LUNGS: Clear bilaterally. No wheezes, rhonchi or rales. HEART: Regular rate and rhythm without a rub. No S3 or S4. ABDOMEN: Obese. Bowel sounds are positive. EXTREMITIES: Her legs are large. Mild lower extremity swelling. Upper extremity on the left has a Kenton-William with a good thrill. She has a tunnelled catheter in the right upper chest. : Deferred. DIAGNOSTIC STUDIES IMAGING: CT scan of the abdomen and pelvis that showed cirrhosis, nonobstructing stone in the left kidney. CT of the head was negative for any acute findings. Chest x-ray no acute findings. LABORATORY: Glucose 115, BUN 19, creatinine 4.0. Sodium 139, potassium 4.0, bicarb 26, calcium 8.9, albumin 2.9, alkaline phosphatase 199, bilirubin 1.7 total, ammonia level 49, INR 1.2, hemoglobin 10.3, white blood cell count 9,300, platelets 43,000. Urinalysis shows 2+ protein, 5-10 RBCs, too numerous to count WBCs, 4+ bacteria. Culture of the blood and urine are pending. ASSESSMENT/PLAN 1. Endstage renal disease. Patient with dialysis yesterday. Questionable part of her fatigue is from too much fluid removal, although I am unable to call that unit at this time. They are closed due to parade downtown. Versus other cause of weakness - could be infection versus other. We will plan on dialyzing her tomorrow on a true potassium bath, remove two liters and use her tunnelled catheter still for now. She is hesitant to use her new Kenton-William here at the hospital and wants to wait until we get to the dialysis unit. 2. Anemia. Hemoglobin is relatively stable for her. Will give her epo with dialysis and intermittent follow. 3. Urinary tract infection. Started on Maxipime and await culture results. 4. Diabetes. 5. Cirrhosis. 6. Weakness. Again questionable from volume removal versus infection versus cirrhosis and encephalopathy versus other. Unit #: [id number] #: [id number] Patient: NICOLE LINO Dictated by..Gordon Corado/angie TD: 11/04/2016 08:05 JOB #: [id number] CONSULTATION REPORT Page 1 of 1 X Teresa Dong MD X CONSULTATION REPORT
[2016-11-02 19:03] LABS: URINE SOURCE CLEAN CATCH
[2016-11-02 19:08] LABS: URINE APPEARANCE TURBID; URINE BLOOD 1+ (NEG); URINE COLOR DK YELLOW; URINE GLUCOSE NEG (NEG); URINE KETONE 1+ (NEG); URINE LEUKOCYTE ESTERASE 3+ (NEG); URINE NITRATE NEG (NEG); URINE PROTEIN 2+ (NEG); URINE SPECIFIC GRAVITY 1.016 (1.003-1.035)
[2016-11-02 19:10] LABS: POC - CKMB 1.5 ng/mL (0.0-7.9); POC - TROPONIN <0.05 ng/mL (<=0.05)
[2016-11-02 19:11] LABS: CULTURE INDICATED? YES; URINE BACTERIA AUWI 4+ (NEGATIVE); URINE SQUAMOUS EPITHELIAL CELL OCC /[HPF]; UWBCS1 AUWI INNUM (0-5)
[2016-11-02 19:16] LABS: URINE BILIRUBIN NEG (NEG)
[2016-11-02 19:18] LABS: BASOPHIL% 0.3 % (0-2.5); EOSINOPHIL# 0.1 X10e3 (0-0.7); EOSINOPHIL% 0.7 % (0.0-7.0); HEMATOCRIT 31.1 % (35.0-45.0); HEMOGLOBIN 10.3 gm/dL (12.0-16.0); LYMPHOCYTE# 0.8 X10e3 (1.0-3.5); LYMPHOCYTE% 8.8 % (17.0-45.0); MEAN CELL VOLUME 100.1 FL (83-96); MEAN CORPUSCULAR HEMOGLOBIN 33.1 PG (28-34); MEAN PLATELET VOLUME 8.9 FL (6.5-11.5); MONOCYTE# 0.9 X10e3 (0-1.0); MONOCYTE% 9.9 % (3.0-12.0); NEUTROPHIL# 7.5 X10e3 (1.5-7.1); NEUTROPHIL% 80.3 % (40-75); WHITE BLOOD COUNT 9.3 X10e3 (4.0-10.5)
[2016-11-02 19:21] LABS: INR 1.2; PARTIAL THROMBOPLASTIN TIME 28.3 SECONDS (23.5-31.3); PROTHROMBIN TIME (PATIENT) 12.3 SECONDS (9.6-11.5)
[2016-11-02 19:28] LABS: DIFF IND YES; PLATELET COUNT 43 X10e3 (140-420)
[2016-11-02 19:29] LABS: PLATELET ESTIMATE DECREASED (NORMAL)
[2016-11-02 19:30] LABS: ANISOCYTOSIS SL
[2016-11-02 19:31] LABS: AMPHETAMINE NEG (NEG); BARBITURATES NEG (NEG); BENZODIAZEPINES NEG (NEG); COCAINE NEG (NEG); MARIJUANA NEG (NEG); OPIATES NEG (NEG); TRICYCLIC ANTIDEPRESSANTS NEG (NEG); U METHADONE NEG (NEG)
[2016-11-02 19:37] LABS: ALBUMIN SERUM 2.9 g/dL (3.5-5.0); BILIRUBIN, DIRECT 0.3 mg/dL (0.0-0.2); BILIRUBIN,INDIRECT 1.4 mg/dL (0.0-0.9); BILIRUBIN,TOTAL 1.7 mg/dL (0.2-2.0); BUN/CREATININE RATIO 4.75; CALCIUM SERUM 8.9 mg/dL (8.4-10.2); GLOM FILT RATE Estimated 10.8 mL/min (>60); POTASSIUM 4.2 mmol/L (3.5-5.1); PROTEIN TOTAL SERUM 6.7 g/dL (6.0-8.3)
[2016-11-02 23:55] LABS: POC - CKMB 2.5 ng/mL (0.0-7.9); POC - TROPONIN <0.05 ng/mL (<=0.05)
[2016-11-04 05:34] LABS: HEMATOCRIT 27.6 % (35.0-45.0); HEMOGLOBIN 9.1 gm/dL (12.0-16.0); MEAN CELL VOLUME 101.6 FL (83-96); MEAN CORPUSCULAR HEMOGLOBIN 33.6 PG (28-34); MEAN CORPUSCULAR HGB CONC 33.1 g/dL (30-36); MEAN PLATELET VOLUME 9.4 FL (6.5-11.5); RED BLOOD COUNT 2.72 X10e (3.90-5.30); RED CELL DISTRIBUTION WIDTH 16.9 % (11.0-15.5); WHITE BLOOD COUNT 5.5 X10e3 (4.0-10.5)
[2016-11-04 07:00] LABS: ALBUMIN SERUM 2.5 g/dL (3.5-5.0); BILIRUBIN,TOTAL 0.8 mg/dL (0.2-2.0); BUN/CREATININE RATIO 5.8; CALCIUM SERUM 8.6 mg/dL (8.4-10.2); CREATININE SERUM 6.2 mg/dL (0.6-1.4); GLOM FILT RATE Estimated 6.4 mL/min (>60); PROTEIN TOTAL SERUM 5.5 g/dL (6.0-8.3)
[2016-11-04] MEDS ORDERED: LEVEMIR100 UNITS/ SUBQ (10:27)
[2016-11-04] MEDS ORDERED: MEROPENEM-500 MG/50 IV (10:29)
== END 2016-11-04 20:22 | disposition home health service (06) | DRG 689 ==
LOC: CED 19:39 → CEDOF 23:00 → C5B 11-03 02:05
PROVIDERS: Internal Medicine; Student in an Organized Health Care Education/Training Program
PROC: 5A1D00Z (ICD-10-PCS; principal; 2016-11-04)
DX: N39.0 Urinary tract infection, site not specified (principal); N18.6 End stage renal disease; I13.2 Hypertensive heart and chronic kidney disease with heart failure and with stage 5 chronic kidney disease, or end stage renal disease; G93.40 Encephalopathy, unspecified; L89.152 Pressure ulcer of sacral region, stage 2; D61.818 Other pancytopenia; E44.0 Moderate protein-calorie malnutrition; I50.32 Chronic diastolic (congestive) heart failure; Z68.41 Body mass index [BMI] 40.0-44.9, adult; E78.5 Hyperlipidemia, unspecified; E11.22 Type 2 diabetes mellitus with diabetic chronic kidney disease; Z99.2 Dependence on renal dialysis; J44.9 Chronic obstructive pulmonary disease, unspecified; I48.0 Paroxysmal atrial fibrillation; E03.9 Hypothyroidism, unspecified; Z90.49 Acquired absence of other specified parts of digestive tract; Z98.49 Cataract extraction status, unspecified eye; Z98.84 Bariatric surgery status; I89.0 Lymphedema, not elsewhere classified; Z98.51 Tubal ligation status; G47.33 Obstructive sleep apnea (adult) (pediatric); K75.81 Nonalcoholic steatohepatitis (NASH); K74.60 Unspecified cirrhosis of liver; Z92.21 Personal history of antineoplastic chemotherapy; Z85.72 Personal history of non-Hodgkin lymphomas; Z88.2 Allergy status to sulfonamides; E66.01 Morbid (severe) obesity due to excess calories; B96.20 Unspecified Escherichia coli [E. coli] as the cause of diseases classified elsewhere; D63.1 Anemia in chronic kidney disease; E11.65 Type 2 diabetes mellitus with hyperglycemia
CPT/HCPCS: 70450; 71010; 74176; 80048; 80053; 80076; 80307; 81003; 82140; 82553; 82947; 84484; 85025; 85027; 85610; 85730; 87040; 87086; 87088; 87186; 93005; 94640; 94760; 96374; 97116; 97163; 97166; 97530; 99285; G8978-GP; G8979-GP; G8987-GO; G8988-GO; J0692; J0696; J1815; J2185; Q4081

== ENCOUNTER 2016-11-30 19:03 | Inpatient (IN) | payer MEDICARE, BC ==
--- NOTE | ~2016-11-30 | HP ---
Unit #: [id number] #: [id number] Patient: NICOLE HOLLIS [id number] [address] [place], [place] [address] [id number] I MR#: [id number] NAME: NICOLE HOLLIS ROOM: [facility] Age: 66 Sex: F Admission Date: 11/30/2016 : 1950 Attending Physician: Kenzie Crisostomo M.D. Primary Care Physician: David Ramirez M.D. HISTORY AND PHYSICAL CHIEF COMPLAINT Weakness following dialysis. HISTORY This 66-year-old female with end stage renal failure, HOWELL, COPD, is admitted for weakness. The patient felt weak after dialysis two days ago. Yesterday improved. She had dialysis today and was able to ambulate into the dialysis center; however, was too weak to walk out. She was brought to this emergency department earlier with a negative workup, and was to be discharged. However, she is not able to walk or stand. Blood pressures are running somewhat low, 97/60. The patient does state that she feels generally weak. Denies fevers, sweats, chills or dysuria. Does have evidence of chronic venous stasis dermatitis of the lower extremities but the left leg looks to be somewhat cellulitic. The patient developed a systolic blood pressure of 87. I am giving 250 mL of saline. The patient was last admitted to this facility about a month ago for ESBL UTI and toxic metabolic encephalopathy requiring IV meropenem. PAST MEDICAL HISTORY 1. Admission about a month ago for ESBL UTI requiring IV meropenem. This was associated with toxic metabolic encephalopathy. 2. End stage renal failure, on hemodialysis Mondays, Wednesdays and Fridays through Dr. Dong. 3. COPD, followed by Dr. Whalen. The patient also has obstructive sleep apnea but does not wear BiPAP or CPAP. 4. History of congestive heart failure but ejection fraction was 50% to 55%. She has a history of paroxysmal atrial fibrillation but is not anticoagulated due to chronic pancytopenia. 5. Non-Hodgkin lymphoma, treated at age 20 with chemotherapy without recurrence. The patient does have a history of pancytopenia with a negative bone marrow biopsy. 6. HOWELL with cirrhosis. 7. AODM, diet controlled. 8. Essential hypertension. 9. Hyperlipidemia. 10. Hypothyroidism. 11. Chronic lymphedema. 12. Cataract extraction. 13. Gastric bypass. 14. Cholecystectomy. 15. BTL. Unit #: [id number] #: [id number] Patient: NICOLE HOLLIS 16. T and A. 17. Abdominoplasty. 18. Bilateral arm surgery. 19. Left upper arm fistula. ALLERGIES Sulfa, morphine, Neurontin. MEDICATIONS Medications at the time of her discharge 11/02/2016 included: 1. Pepcid 20 mg daily. 2. Lactulose 30 mL daily. 3. Synthroid 0.125 mg q. a.m. 4. Paxil 20 mg daily. 5. ProMod. 6. Ultram 50 mg t.i.d. p.r.n. 7. Xanax p.r.n. 8. Zofran 4 mg p.r.n. 9. Dulera 200/5, one puff b.i.d. 10. Venofer and Mircera IV with dialysis q.2 weeks. 11. PhosLo 667 mg t.i.d. with meals. 12. Levemir 30 units subcu b.i.d. FAMILY HISTORY CAD. SOCIAL HISTORY The patient lives with her daughter and son, lifelong nonsmoker, does not drink alcohol. REVIEW OF SYSTEMS Difficult to obtain as patient is fairly weak and will only answer a few questions. PHYSICAL EXAMINATION GENERAL APPEARANCE: Weak, mildly somnolent but easily arousable 66-year-old, obese female. VITAL SIGNS: Temperature 97.9, pulse 95, respirations 20, blood pressure 97/60. O2 saturation is 100% on 2 L of oxygen. HEENT: Eyes PERRLA. Extraocular muscles are intact. Pharynx is benign. NECK: Supple without adenopathy or thyromegaly. CHEST: Clear. CARDIAC: Normal S1 and S2 without definite murmur. There is a dialysis catheter in the right upper chest. ABDOMEN: Bowel sounds are present. Mild generalized abdominal tenderness without rebound or guarding. No definite hepatosplenomegaly or masses. EXTREMITIES: Notable for lower extremity edema with what appears to be chronic venous stasis changes bilaterally although the left leg is much more erythematous and she does have some open superficial ulcers. NEUROLOGIC: The patient is somnolent but easily arousable. Cranial nerves are intact. She has equal strength throughout. Of note, she does have a right arm fistula with good bruit although thrill is somewhat diminished. DIAGNOSTIC STUDIES LABORATORY: Admission labs - hematocrit is 30.1, normal white count. MCV 101.5, platelet count is 53 which is stable. Unit #: [id number] #: [id number] Patient: NICOLE HOLLIS normal. SMA-12 - glucose 205, creatinine 3.2, chloride 97, albumin 2.8, alkaline phos. 175. IMAGING: Chest x-ray - no acute disease. Old granulomatous disease noted. CARDIOVASCULAR: EKG - sinus rhythm, rate 90 with PACs. Cardiac markers are negative. ASSESSMENT 1. Weakness following dialysis twice this week: Possibly the patient is over-diuresed. Will rule out infectious etiology. 2. Recent admission for extended spectrum betalactamase urinary tract infection with toxic metabolic encephalopathy. 3. End stage renal failure, on hemodialysis Mondays, Wednesdays and Fridays. 4. Chronic obstructive pulmonary disease and obstructive sleep apnea. 5. Paroxysmal atrial fibrillation, currently in a normal sinus rhythm. 6. Chronic anemia and thrombocytopenia. 7. Previous treatment for non-Hodgkin lymphoma at age 20. 8. Nonalcoholic steatohepatitis with cirrhosis. 9. Adult onset diabetes mellitus. 10. Hypertension. 11. Hypothyroidism. 12. Gastric bypass. 13. Possible left leg cellulitis. PLANS 1. Blood and urine cultures. 2. Will give one dose of vancomycin for possible left leg cellulitis and likely switch to doxycycline. 3. Nephrology to see in the morning. 4. Obtain TSH, ammonia level and repeat labs in the morning. 5. DVT prophylaxis. Dictated by Kenzie Crisostomo M.D. AML/df TD: 12/01/2016 05:17 JOB #: [id number] HISTORY AND PHYSICAL Page 1 of 1 X Kenzie Crisostomo MD X HISTORY AND PHYSICAL
--- NOTE | ~2016-11-30 | DS ---
Unit #: [id number] #: [id number] Patient: NICOLE LINO [id number] [address] [address] [id number] I MR#: [id number] NAME: NICOLE LINO ROOM: 474 Age: 66 Sex: F Admission Date: 11/30/2016 : 1950 Discharge Date: 12/03/2016 Attending Physician: Bettina Alexis M.D. Primary Care Physician: David Ramirez M.D. DISCHARGE SUMMARY PRINCIPAL DIAGNOSES 1. Severe weakness following hemodialysis. 2. End-stage renal disease maintained on hemodialysis Monday, Monday, Monday. 3. Cirrhosis secondary to nonalcoholic steatohepatitis. 4. Chronic diastolic congestive heart failure with an ejection of 55%. No acute exacerbation. 5. Diabetes mellitus type 2, insulin requiring. 6. Hypertension. 7. Chronic lymphedema of lower extremities. 8. Chronic thrombocytopenia secondary to cirrhosis. 9. Chronic obstructive pulmonary disease. 10. Anemia of chronic kidney disease. 11. Hypothyroidism. 12. Paroxysmal atrial fibrillation. 13. Obesity. 14. Moderate protein malnutrition. CONSULTANTS 1. Dr. Moses, Nephrology. 2. Dr. Kern, Vascular Surgery. PROCEDURES 1. Removal of right tunnel catheter without complication. 2. Chest x-ray, on November 30, 2016, with no acute findings. Granulomatous disease noted. CLINCAL AND HOSPITAL COURSE Ms. Lino is a 66-year-old female who presents to the emergency department with weakness following dialysis. Please refer to H and P for further details. She was mildly hypotensive in the emergency department and she was subsequently admitted. Nephrology was consulted given patient's requirement for hemodialysis. She underwent hemodialysis on both November 30 and December 02 and felt weak afterwards. However, a recovery period, she returned to her baseline and was able to get up and move. She was seen by Physical Therapy who suggested home health on discharge for PT and OT and we will initiate this. Vascular Surgery was consulted given patient had an indwelling right hemodialysis catheter with a functioning left AV fistula. Line was removed. Today, the patient is clinically stable to return to her baseline and will Unit #: [id number] #: [id number] Patient: NICOLE LINO be discharged home. DISCHARGE CONDITION Stable. DISCHARGE STATUS Discharged to home. DISCHARGE MEDICATIONS 1. Lactulose 30 mL p.o. daily. 2. Paxil 20 mg daily. 3. Dulera 200/5 mcg one puff twice daily. 4. Levemir 30 units subcutaneously daily. 5. Famotidine 20 mg daily. 6. Renvela 800 mg p.o. t.i.d. 7. Levothyroxine 125 mcg p.o. daily. DISCHARGE INSTRUCTIONS 1. The patient was instructed to follow a Heart Healthy constant carb diet. 2. She will continue Accu-Cheks a.c. and h.s. at home. 3. She can increase her activity as tolerated under the care of physical and occupational therapy. 4. Followup: The patient will follow up with her primary care provider, Dr. Ramirez, in four weeks. 5. She will continue hemodialysis Monday, Monday, Monday. Dictated by... Bettina Alexis M.D. TAYLOR/louis TD: 12/05/2016 09:43 JOB #: [id number] DISCHARGE SUMMARY Page 1 of 1 X Bettina Alexis MD X DISCHARGE SUMMARY
--- NOTE | ~2016-11-30 | EKG ---
PATIENT: NICOLE HOLLIS UNIT #: [id number] Ventricular Rate: 91 BPM Atrial Rate: 91 BPM P-R Interval: 162 ms QRS Duration: 78 ms Q-T Interval: 416 ms QTC Calculation(Bezet): 511 ms P [place]: 73 degrees Calculated R [place]: 80 degrees Calculated T [place]: 56 degrees Diagnosis Line: Sinus rhythm with Premature supraventricular Diagnosis Line: complexes Diagnosis Line: Prolonged QT Diagnosis Line: Abnormal ECG Diagnosis Line: No previous ECGs available Diagnosis Line: Confirmed by YAKOV GUNTER MD ([id number]) on Diagnosis Line: 12/01/2016 7:09:41 PM INTERPRETING MD: LYRIC FLOWERS
--- NOTE | ~2016-11-30 | CO ---
Unit #: [id number] #: [id number] Patient: NICOLE LINO [id number] [address] [place], [place] [address] [id number] I MR#: [id number] NAME: NICOLE LINO ROOM: [facility] Age: 66 Sex: F Admission Date: 11/30/2016 : 1950 Attending Physician: Jatin Pittman M.D. Primary Care Physician: David Ramirez M.D. CONSULTATION REPORT REASON FOR CONSULTATION Management of ESRD. HISTORY OF PRESENT ILLNESS This 66-year-old white female with multiple medical problems, including end-stage renal disease, on dialysis Monday, Monday, Monday; chronic immobility; COPD; nonalcoholic steatohepatitis, had a regular dialysis treatment yesterday and then came to the emergency room later for weakness. Recently, she had a successful cannulation of her arteriovenous graft for dialysis, and she was being set up for routine removal of her tunneled catheter. She does not report any nausea, vomiting, or diarrhea. No fever or chills. PAST MEDICAL HISTORY 1. End-stage renal disease, on Monday, Monday, and Monday dialysis. 2. COPD, followed by Dr. Whalen. 3. Chronic pancytopenia. 4. HOWELL with cirrhosis. 5. Non-Hodgkin lymphoma. 6. Hyperlipidemia. 7. Chronic lymphedema. 8. History of gastric bypass. 9. Left upper extremity AV graft. 10. She has insulin-dependent diabetes. PAST SURGICAL HISTORY Gastric bypass, cholecystectomy, cataracts. SOCIAL HISTORY She is living at home with her children. She requires a lot of assistance as it is difficult for her to walk. ALLERGIES To Neurontin, morphine, and sulfa. HOME MEDICINES Insulin as directed, PhosLo 667 mg t.i.d. with meals, Venofer and Mircera, Dulera one puff b.i.d., Xanax p.r.n., Ultram 50 mg t.i.d. p.r.n., Paxil 20 mg daily, Synthroid 0.25 mg q.a.m., lactulose 30 mL daily, Pepcid 20 mg daily. FAMILY HISTORY Positive for heart disease. Unit #: [id number] #: [id number] Patient: NICOLE LINO REVIEW OF SYSTEMS She currently says she feels better. She denies headache or blurry vision. She denies nausea, vomiting, or diarrhea. She denies chest pain or shortness of breath. She does notice that she has some wheezes. No abdominal pain. Her lymphedema is at its baseline. PHYSICAL EXAMINATION VITAL SIGNS: Temperature is 98.1, heart rate is 91, blood pressure is 117/44. GENERAL: She is a chronically ill, weak appearing white female. She is obese. She is smiling and in no acute distress. HEENT: Extraocular muscles are intact. No eye drainage or icterus. Oropharynx is dry without lesion. NECK: Supple without JVD, thyromegaly, or carotid bruit. CHEST: Shows bilateral expiratory wheezes. CARDIAC: S1 and S2. Normal sinus rhythm. No gallop or rub heard. ABDOMEN: Obese, soft, nontender, nondistended. Positive bowel sounds. EXTREMITIES: Show some lymphedema with some chronic venous stasis dermatitis. No cyanosis or clubbing. DIAGNOSTIC STUDIES LABORATORY RESULTS: Show a BUN of 17, creatinine 3.7, sodium 140, potassium 4.7, calcium 8.7, phosphorus 3.8, albumin 2.8. White blood cell count 4.7, hemoglobin 9.2, platelet count 45. ASSESSMENT AND PLAN 1. End-stage renal disease. We will continue her dialysis on Monday, Monday, and Monday. She has some peripheral edema and chronic venous stasis, that is noted, but she is oxygenating well. We will perform dialysis using her left arteriovenous graft tomorrow. If all goes well, we will ask Vascular Surgery to remove her tunneled catheter. Blood cultures have been drawn and are pending at the time of the dictation. 2. Weakness. I think this is an acute on chronic problem. The patient was in a rehab facility, but got discharged due to financial issues. She may benefit from subacute rehab again. I do not see at this point that she has a septic picture, but it would be nice to get her tunnel catheter out this admission. 3. Nonalcoholic steatohepatitis, on lactulose. 4. Chronic obstructive pulmonary disease. Her inhalers have been continued. 5. Pancytopenia. She has chronic low platelets. Heparin is avoided on dialysis. 6. Renal osteodystrophy. Her phosphorus will be checked and binders continued if needed. 7. Hypoalbuminemia. She would benefit from protein supplements. 8. Anemia of chronic kidney disease. Mircera will be continued at her home dialysis clinic. Thank you very much for allowing me to see Ms. Lino with you. Dictated by... Hailey Moses M.D. KENYA/alisha TD: 12/02/2016 07:26 JOB #: [id number] Unit #: [id number] #: [id number] Patient: NICOLE LINO CONSULTATION REPORT Page 1 of 1 X Hailey Moses MD X CONSULTATION REPORT
--- NOTE | ~2016-11-30 | CR72 ---
[facility] A Service of [facility] RADIOLOGY TEXT RESULTS PATIENT: NICOLE HOLLIS LOCATION: [facility] 474 : 48 UNIT #: [id number] AGE: [address]: Jatin Pittman MD SEX: F ORDER DR: [id number] [facility] [address] [place], [place] [address] [id number] I MR#: [id number] Acc #: [id number] NAME: NICOLE HOLLIS : 1950 SEX: F STUDY DATE/TIME: 11/30/2016 20:51 UNIT: [facility] ROOM: [facility] STUDY DESCRIPTION: CR Chest Single View Portable Attending Physician: Jatin Pittman M.D. Ordering Physician: Fredy Higgins M.D. Primary Care Physician: David Ramirez M.D. MEDICAL IMAGING REPORT This report is preliminary unless electronic signature is present EXAM Chest x-ray single view portable HISTORY Short of air, weakness, cannot walk, chest pain, symptoms started today or may be for a few days per patient. Patient has a history of hypothyroidism. COMMENT Single frontal portable view of the chest timed 20:51 11/30/2016 compared to 11/02/2016. There is a right-sided tunneled catheter unchanged. Heart size is normal. There is evidence for old granulomatous disease. There is no acute appearing parenchymal infiltrate, acute congestive failure, pleural effusion or pneumothorax. IMPRESSION 1. No active disease is seen in the chest. 2. No change right side tunneled catheter. 3. Old granulomatous disease. Dictated by... Brittany Hagan M.D. THIS IS AN ELECTRONICALLY VERIFIED REPORT Brittany Hagan M.D. at 12/01/2016 2:26 PM BREANA/lisa [facility] A Service of [facility] RADIOLOGY TEXT RESULTS PATIENT: NICOLE HOLLIS LOCATION: [facility] 474 : 48 UNIT #: [id number] AGE: [address]: Jatin Pittman MD SEX: F ORDER DR: TD: 12/01/2016 08:43 JOB #: [id number] MEDICAL IMAGING REPORT Page 1 of 1 COPY
[~2016-11-30 19:03] MED LIST changes: +LEVEMIR100 UNITS/ SUBQ; +MEROPENEM-500 MG/50 IV
[2016-11-30 20:25] LABS: BASOPHIL% 0.4 % (0-2.5); EOSINOPHIL# 0.1 X10e3 (0-0.7); EOSINOPHIL% 1.1 % (0.0-7.0); HEMATOCRIT 30.1 % (35.0-45.0); LYMPHOCYTE# 1.2 X10e3 (1.0-3.5); MEAN CELL VOLUME 101.5 FL (83-96); MEAN CORPUSCULAR HEMOGLOBIN 33.9 PG (28-34); MEAN CORPUSCULAR HGB CONC 33.3 g/dL (30-36); MEAN PLATELET VOLUME 9.4 FL (6.5-11.5); MONOCYTE% 15.4 % (3.0-12.0); NEUTROPHIL% 64.1 % (40-75); PLATELET COUNT 53 X10e3 (140-420); RED BLOOD COUNT 2.97 X10e (3.90-5.30); RED CELL DISTRIBUTION WIDTH 15.8 % (11.0-15.5); WHITE BLOOD COUNT 6.3 X10e3 (4.0-10.5)
[2016-11-30 20:26] LABS: DIFF IND YES
[2016-11-30 20:33] LABS: INR 1.1; PARTIAL THROMBOPLASTIN TIME 21.5 SECONDS (23.5-31.3); PROTHROMBIN TIME (PATIENT) 11.1 SECONDS (9.6-11.5)
[2016-11-30 20:42] LABS: ALBUMIN SERUM 2.8 g/dL (3.5-5.0); BILIRUBIN, DIRECT 0.3 mg/dL (0.0-0.2); BILIRUBIN,INDIRECT 0.8 mg/dL (0.0-0.9); BILIRUBIN,TOTAL 1.1 mg/dL (0.2-2.0); BUN/CREATININE RATIO 4.68; CALCIUM SERUM 8.7 mg/dL (8.4-10.2); CREATININE SERUM 3.2 mg/dL (0.6-1.4); GLOM FILT RATE Estimated 14.2 mL/min (>60); POTASSIUM 4.3 mmol/L (3.5-5.1)
[2016-11-30 20:47] LABS: POC - CKMB <1.0 ng/mL (0.0-7.9); POC - TROPONIN <0.05 ng/mL (<=0.05)
[2016-11-30 20:50] LABS: PLATELET ESTIMATE DECREASED (NORMAL); POLYCHROMASIA MOD
[2016-12-01 04:34] LABS: BASOPHIL% 0.4 % (0-2.5); EOSINOPHIL# 0.1 X10e3 (0-0.7); EOSINOPHIL% 1.6 % (0.0-7.0); HEMOGLOBIN 9.2 gm/dL (12.0-16.0); LYMPHOCYTE# 1.4 X10e3 (1.0-3.5); LYMPHOCYTE% 28.6 % (17.0-45.0); MEAN CELL VOLUME 102.9 FL (83-96); MEAN CORPUSCULAR HEMOGLOBIN 33.7 PG (28-34); MEAN CORPUSCULAR HGB CONC 32.8 g/dL (30-36); MEAN PLATELET VOLUME 9.2 FL (6.5-11.5); MONOCYTE# 0.6 X10e3 (0-1.0); MONOCYTE% 13.7 % (3.0-12.0); NEUTROPHIL# 2.6 X10e3 (1.5-7.1); NEUTROPHIL% 55.7 % (40-75); RED BLOOD COUNT 2.72 X10e (3.90-5.30); RED CELL DISTRIBUTION WIDTH 15.4 % (11.0-15.5); WHITE BLOOD COUNT 4.7 X10e3 (4.0-10.5)
[2016-12-01 04:39] LABS: DIFF IND NO; PLATELET COUNT 45 X10e3 (140-420)
[2016-12-01 04:53] LABS: BUN/CREATININE RATIO 4.59; CALCIUM SERUM 8.7 mg/dL (8.4-10.2); CREATININE SERUM 3.7 mg/dL (0.6-1.4); GLOM FILT RATE Estimated 11.9 mL/min (>60); POTASSIUM 4.7 mmol/L (3.5-5.1)
[2016-12-01 04:57] LABS: CK TOTAL 53 IU/L (26-140)
[2016-12-01 08:24] LABS: URINE SOURCE CLEAN CATCH
[2016-12-01 08:33] LABS: URINE APPEARANCE CLOUDY; URINE BILIRUBIN NEG (NEG); URINE BLOOD 1+ (NEG); URINE COLOR YELLOW; URINE GLUCOSE NEG (NEG); URINE KETONE NEG (NEG); URINE LEUKOCYTE ESTERASE 2+ (NEG); URINE NITRATE NEG (NEG); URINE PH 8.5 (5-8); URINE PROTEIN 1+ (NEG); URINE SPECIFIC GRAVITY 1.009 (1.003-1.035)
[2016-12-01 08:35] LABS: U HYALINE CASTS AUWI 0-2 /[LPF]; URINE BACTERIA AUWI 2+ (NEGATIVE); URINE SQUAMOUS EPITHELIAL CELL MOD /[HPF]
[2016-12-02 03:42] LABS: HEMATOCRIT 27.3 % (35.0-45.0); MEAN CELL VOLUME 102.4 FL (83-96); MEAN CORPUSCULAR HEMOGLOBIN 33.7 PG (28-34); MEAN CORPUSCULAR HGB CONC 32.9 g/dL (30-36); MEAN PLATELET VOLUME 9.2 FL (6.5-11.5); RED BLOOD COUNT 2.66 X10e (3.90-5.30); RED CELL DISTRIBUTION WIDTH 15.3 % (11.0-15.5); WHITE BLOOD COUNT 5.6 X10e3 (4.0-10.5)
[2016-12-02 03:54] LABS: BUN/CREATININE RATIO 6.11; CALCIUM SERUM 8.8 mg/dL (8.4-10.2); CREATININE SERUM 5.4 mg/dL (0.6-1.4); GLOM FILT RATE Estimated 7.5 mL/min (>60); POTASSIUM 4.4 mmol/L (3.5-5.1)
[2016-12-02] MEDS ORDERED: RENVELA800 MG PO (18:42)
[2016-12-03 03:21] LABS: BASOPHIL% 0.6 % (0-2.5); EOSINOPHIL# 0.1 X10e3 (0-0.7); EOSINOPHIL% 1.3 % (0.0-7.0); HEMATOCRIT 31.2 % (35.0-45.0); HEMOGLOBIN 10.2 gm/dL (12.0-16.0); LYMPHOCYTE# 1.6 X10e3 (1.0-3.5); LYMPHOCYTE% 20.5 % (17.0-45.0); MEAN CELL VOLUME 103.4 FL (83-96); MEAN CORPUSCULAR HEMOGLOBIN 33.9 PG (28-34); MEAN CORPUSCULAR HGB CONC 32.8 g/dL (30-36); MEAN PLATELET VOLUME 9.6 FL (6.5-11.5); MONOCYTE# 1.1 X10e3 (0-1.0); MONOCYTE% 14.6 % (3.0-12.0); NEUTROPHIL# 4.8 X10e3 (1.5-7.1); PLATELET COUNT 51 X10e3 (140-420); RED BLOOD COUNT 3.02 X10e (3.90-5.30); RED CELL DISTRIBUTION WIDTH 15.4 % (11.0-15.5); WHITE BLOOD COUNT 7.7 X10e3 (4.0-10.5)
[2016-12-03 03:22] LABS: DIFF IND NO
[2016-12-03 03:45] LABS: BUN/CREATININE RATIO 4.87; CALCIUM SERUM 8.6 mg/dL (8.4-10.2); CREATININE SERUM 4.1 mg/dL (0.6-1.4); GLOM FILT RATE Estimated 10.5 mL/min (>60); POTASSIUM 4.1 mmol/L (3.5-5.1)
[2016-12-03] MEDS ORDERED: DULERA 200 MCG/13 GM INH (12:52)
== END 2016-12-03 15:28 | disposition home health service (06) | DRG 947 ==
LOC: CED 19:03 → C4C 23:45 → CEDOF 23:45 → CED 23:57 → CEDOF 23:57 → C4C 23:57 → CEDOF 23:57 → C4C 12-01 07:45
PROVIDERS: Emergency Medicine; Internal Medicine
PROC: 5A1D00Z (ICD-10-PCS; principal; 2016-12-02)
DX: R53.1 Weakness (principal); N18.6 End stage renal disease; I13.2 Hypertensive heart and chronic kidney disease with heart failure and with stage 5 chronic kidney disease, or end stage renal disease; E44.0 Moderate protein-calorie malnutrition; E11.22 Type 2 diabetes mellitus with diabetic chronic kidney disease; D69.59 Other secondary thrombocytopenia; L03.116 Cellulitis of left lower limb; I50.32 Chronic diastolic (congestive) heart failure; Z68.1 Body mass index [BMI] 19.9 or less, adult; Z99.2 Dependence on renal dialysis; I89.0 Lymphedema, not elsewhere classified; K74.60 Unspecified cirrhosis of liver; K75.81 Nonalcoholic steatohepatitis (NASH); J44.9 Chronic obstructive pulmonary disease, unspecified; D63.1 Anemia in chronic kidney disease; E03.9 Hypothyroidism, unspecified; I48.0 Paroxysmal atrial fibrillation; E66.9 Obesity, unspecified; I87.2 Venous insufficiency (chronic) (peripheral); Z85.72 Personal history of non-Hodgkin lymphomas; Z98.49 Cataract extraction status, unspecified eye; Z90.49 Acquired absence of other specified parts of digestive tract; Z98.84 Bariatric surgery status; Z79.4 Long term (current) use of insulin; E88.09 Other disorders of plasma-protein metabolism, not elsewhere classified; R82.90 Unspecified abnormal findings in urine; Z88.2 Allergy status to sulfonamides; Z88.8 Allergy status to other drugs, medicaments and biological substances
CPT/HCPCS: 36415; 71010; 80048; 80076; 81003; 82140; 82550; 82553; 82607; 82947; 84100; 84443; 84484; 85025; 85027; 85610; 85730; 87040; 87086; 93005; 97116; 97161; 97166; 97530; 99285; G8978-GP; G8979-GP; G8987-GO; G8988-GO; G8989-GO; J1650; J1815; J2930; J3370

== ENCOUNTER 2017-02-10 18:55 | Inpatient (IN) | payer MEDICARE, BC ==
[~2017-02-10] VITALS: Ht 162.6 cm; Wt 102.8 kg
--- NOTE | ~2017-02-10 | DS ---
Unit #: [id number] #: [id number] Patient: NICOLE HOLLIS [id number] [address] [place], [place] [address] [id number] MR#: [id number] NAME: NICOLE HOLLIS ROOM: [facility] Age: 66 Sex: F Admission Date: 02/11/2017 : 1950 Discharge Date: 02/17/2017 Attending Physician: Dinora Rizvi M.D. Primary Care Physician: David Ramirez M.D. DISCHARGE SUMMARY ADDENDUM HOSPITAL COURSE Please see Dr. Ramirez's discharge summary from 02/13/2017 for details of initial part of hospital stay. The patient was kept in the hospital secondary to logistical reasons as we were unable to set up IV antibiotics at home secondary to questionable support that she had at home. A repeat urinalysis also revealed similar findings consistent with ESBL urinary tract infection. We attempted to place Merrem and/or Invanz at the hemodialysis unit, but both medications were not available. At this point in time the patient is now agreeable. She will be discharged to a rehab facility for ongoing care. She will require additional IV antibiotics, Merrem 500 mg IV q.12 for an additional 6 days. FINAL DISCHARGE DIAGNOSES 1. ESBL urinary tract infection. 2. Mental status change, likely secondary to number one. 3. Profound weakness. 4. Hypertension. 5. Chronic immobility syndrome. 6. Anemia. 7. Chronic thrombocytopenia. Baseline platelets between 40 to 60, likely secondary to history of cirrhosis. 8. Endstage renal disease on hemodialysis. 9. Chronic lymphedema. 10. Chronic obstructive pulmonary disease. 11. Likely mild to moderate dementia, multifactorial in etiology. 12. Prior history of diastolic dysfunction. 13. Diabetes type 2. 14. Hypertension. 15. Paroxysmal atrial fibrillation. 16. Prior history of non-Hodgkin lymphoma. 17. Severe morbid obesity. FINAL DISCHARGE MEDICATIONS 1. Lactulose 30 ml p.o. daily. 2. Paxil 20 mg p.o. daily. 3. Levemir 10 units subcutaneous b.i.d. 4. NovoLog low-dose sliding scale with insulin Accu-Cheks morning and evening. 5. Merrem 500 mg IV q.12 h. times 6 additional days until 02/23/2017. Unit #: [id number] #: [id number] Patient: NICOLE HOLLIS 6. Pepcid 20 mg p.o. daily. 7. Renvela 1600 mg p.o. t.i.d. with meals. 8. Synthroid 125 mcg p.o. daily. DISCHARGE CONDITION Stable. DISCHARGE DISPOSITION Rehab. Dictated by... Gordon Louie/angie TD: 02/17/2017 10:30 JOB #: [id number] DISCHARGE SUMMARY Page 1 of 1 X Dinora Rizvi MD X DISCHARGE SUMMARY
--- NOTE | ~2017-02-10 | CO ---
Unit #: [id number] #: [id number] Patient: NICOLE LINO [id number] [address] [address] [id number] I MR#: [id number] NAME: NICOLE LINO ROOM: 301 Age: 66 Sex: F Admission Date: 02/11/2017 : 1950 Attending Physician: Dinora Rizvi M.D. Primary Care Physician: David Ramirez M.D. Consultation Date: 02/11/2017 CONSULTATION REPORT REASON FOR CONSULTATION End-stage renal disease. Thank you very much for asking me to see this patient in consultation again. HISTORY OF PRESENT ILLNESS Mrs. Lino is a 66-year-old female with a history of end-stage renal disease, on hemodialysis every Monday, Monday, and Monday, who presented to the hospital late last night or early this morning. Apparently after dialysis, she became very, very weak and tired. She states they took about 4 L off; however, she does not remember if her blood pressure dropped or not, but became very weak and shaky and presented to the hospital here and was admitted. The patient denies having any fevers or chills, any cough, any hemoptysis. No shortness of air, any nausea vomiting, or diarrhea. PAST MEDICAL HISTORY History of end-stage renal disease; again as mentioned above, history of cirrhosis secondary to HOWELL; history of anemia; history of chronic thrombocytopenia; history of congestive heart failure with an EF normal at 55%; history of diabetes mellitus; history of hypertension; history of chronic lymphedema; history of COPD; history of hypothyroidism; history of paroxysmal atrial fib; history of non-Hodgkin lymphoma; history of obesity. She is status post gastric bypass; status post cholecystectomy. SOCIAL HISTORY She currently lives at home. She does not smoke or drink. FAMILY HISTORY Noncontributory. ALLERGIES Include sulfa, morphine, and gabapentin. MEDICATIONS At home? upon discharge several months ago, she was on lactulose 30 mL daily, Paxil 20 mg a day, several inhalers, insulin, Pepcid 20 mg a day, Renvela 800 mg t.i.d. with meals, and levothyroxine daily. REVIEW OF SYSTEMS As mentioned in the HPI, otherwise negative. PHYSICAL EXAMINATION Unit #: [id number] #: [id number] Patient: NICOLE LINO VITAL SIGNS: T-max is 98.3, pulse is 81 to 91, systolic blood pressure 100 to 115 with diastolic blood pressure of 45 to 69. HEENT: She is normocephalic and atraumatic. Pupils are equal, round, and reactive to light. Extraocular muscles are intact. Hearing appears to be normal. Mouth clear. No erythema. No exudate. NECK: Supple. No JVD. CARDIAC: She appears to have a regular rhythm now without a rub. No S3 or S4. LUNGS: She has a few wheezes noted throughout. No rales or rhonchi. ABDOMEN: Bowel sounds positive. Obese, nontender, soft. EXTREMITIES: She has chronic lymphedema and positive edema. NEUROLOGIC: She is actually alert, sitting in chair, eating. : Deferred. DIAGNOSTIC STUDIES LABORATORY RESULTS: She had a glucose of 159, BUN of 31, creatinine of 4.9, potassium is 5, bicarb is 30, chloride is 95, calcium is 8.6. Hemoglobin is 8.7, white count 7700, platelets 49,000. Again, her urinalysis shows specific gravity of 1.012, 2+ protein, 1+ blood, 5 to 10 rbc's, too numerous to count wbc's, 4+ bacteria. Urine culture is pending. ASSESSMENT/PLAN 1. End-stage renal disease, inpatient dialysis yesterday, although potassium is high last night. I am going to recheck her BMP today. She does certainly could have had weakness from volume removal, although certainly overall body she is fluid overloaded. Certainly encourage decreased p.o. intake, at least the extra fluids between treatments. We will plan on dialyzing her here on Monday or at the dialysis unit on Monday, unless her potassium becomes an issue. We will check her BMP again today and as well as labs ordered in the morning. 2. Anemia. Hemoglobin is low. We will give Epogen with dialysis here and follow trends. 3. Chronic thrombocytopenia. 4. Cirrhosis secondary to nonalcoholic steatohepatitis. 5. Diabetes. 6. History of atrial fibrillation, in normal sinus now. 7. Probable urinary tract infection, on Rocephin. Await culture results. Dictated by..Kari Dong M.D. ABDOULAYE/alisha TD: 02/13/2017 04:20 JOB #: [id number] CONSULTATION REPORT Page 1 of 1 X Teresa Dong MD CONSULTATION REPORT
--- NOTE | ~2017-02-10 | HP ---
Unit #: [id number] #: [id number] Patient: NICOLE HOLLIS [id number] [address] [place], [place] [address] [id number] I MR#: [id number] NAME: NICOLE HOLLIS ROOM: [facility] Age: 66 Sex: F Admission Date: 02/11/2017 : 1950 Attending Physician: Dinora Rizvi M.D. Primary Care Physician: David Ramirez M.D. HISTORY AND PHYSICAL CHIEF COMPLAINT Generalized weakness. DISCUSSION This is a 66-year-old female with a past medical history of end stage renal disease on hemodialysis, cirrhosis secondary to nonalcoholic steatohepatitis, history of anemia of chronic disease, chronic diastolic CHF, ejection fraction 55%, diabetes, hypertension, chronic lower extremity edema, COPD, hypothyroid, paroxysmal atrial fibrillation, obesity, non-Hodgkin lymphoma. She was brought to the emergency room with a chief complaint of generalized weakness, unable to ambulate after hemodialysis. On workup, also she was found to be UTI, eventually being admitted. She has been unable to take care of herself, unable to ambulate though she denies chest pain, nausea, vomiting, fever, cough or any other complaint. PAST MEDICAL HISTORY 1. History of end stage renal disease on hemodialysis. 2. History of cirrhosis secondary to nonalcoholic steatohepatitis. 3. Anemia of chronic disease. 4. History of chronic diastolic CHF, ejection fraction 55%. 5. Diabetes, on insulin. 6. Hypertension. 7. History of chronic lymphedema of lower extremities. 8. COPD. 9. Hypothyroid. 10. History of paroxysmal A-fib. 11. History of non-Hodgkin lymphoma. 12. Obesity. 13. History of recurrent UTI requiring admission in the past. 14. The patient also has a history of obstructive sleep apnea but does not use CPAP or BiPAP. Follows with Dr. Whalen. 15. Patient also has a history of pancytopenia with negative bone marrow biopsy in the past. PAST SURGICAL HISTORY 1. History of cataract extraction. 2. Gastric bypass. 3. Cholecystectomy. 4. Bilateral tubal ligation. 5. Bilateral arm surgery. 6. Left arm fistula. 7. Tonsillectomy. 8. Left cyst removal from left wrist. Unit #: [id number] #: [id number] Patient: NICOLE HOLLIS 9. History of abdominoplasty. 10. History of right tunneled catheter. ALLERGIES Sulfa, morphine, Neurontin. MEDICATIONS She does not remember the medications. From last discharge was followin. Pepcid 20 mg daily. 2. Lactulose 30 mg daily. 3. Synthroid 125 mcg daily. 4. Paxil 20 mg daily. 5. Levemir 30 units subcu daily. 6. Renvela 800 three times daily. 7. Dulera 200 mcg, one puff twice daily. FAMILY HISTORY Coronary artery disease. SOCIAL HISTORY Patient lives with her daughter, is a lifelong nonsmoker, does not drink alcohol. REVIEW OF SYSTEMS Negative except as in History of Present Illness. PHYSICAL EXAMINATION GENERAL: Elderly female lying in the bed comfortably, currently not in any distress. She is alert, awake, oriented x2. CURRENT VITAL SIGNS: Temperature 97.9, heart rate 89, respiratory rate 17, blood pressure 104/69, oxygen 94%. HEENT: Pupils equal, reactive to light and accommodation. Extraocular muscles intact. Pharynx benign. NECK: Supple. No JVD, no thyromegaly. LUNGS: Clear to auscultation. No rhonchi, no wheezing. HEART: S1, S2. Regular rate and rhythm. ABDOMEN: Obese, soft, nontender, nondistended. EXTREMITIES: Bilateral lower extremities appear to be chronic venous stasis changes bilaterally with chronic changes. NEUROLOGICAL: No focal neurologic deficit. She is moving all extremities. PSYCH: Normal mood and affect. DIAGNOSTIC STUDIES LABORATORY: Sodium 135, potassium 5, chloride 95, glucose 159, BUN 31, creatinine 4.5, white count 7, hemoglobin 8.7, hematocrit 26.3, platelets 49. UA shows turbid appearance and positive WBC 5-10. Troponin less than 0.05. Accu-Chek 137. ASSESSMENT AND PLAN 1. UTI: Start the patient on IV Rocephin. 2. Generalized weakness following hemodialysis: PT to evaluate. 3. End stage renal disease, on hemodialysis. 4. History of cirrhosis secondary to HOWELL. 5. Anemia of chronic disease. Unit #: [id number] #: [id number] Patient: NICOLE HOLLIS 6. Thrombocytopenia. 7. History of chronic diastolic CHF. 8. Diabetes. 9. Hypertension. 10. Chronic lymphedema of bilateral lower extremities with chronic venous changes. 11. COPD. 12. Hypothyroid. 13. History of paroxysmal A-fib as per old records. 14. History of non-Hodgkin lymphoma. 15. Obesity. 16. DVT prophylaxis: Will place the patient on SCDs. Dictated by Gordon Garcia TD: 02/11/2017 10:15 JOB #: [id number] HISTORY AND PHYSICAL Page 1 of 1 X X HISTORY AND PHYSICAL
--- NOTE | ~2017-02-10 | EKG ---
PATIENT: NICOLE HOLLIS UNIT #: [id number] Ventricular Rate: 89 BPM Atrial Rate: 89 BPM P-R Interval: 174 ms QRS Duration: 88 ms Q-T Interval: 422 ms QTC Calculation(Bezet): 513 ms P [place]: 76 degrees Calculated R [place]: 66 degrees Calculated T [place]: 55 degrees Diagnosis Line: Normal sinus rhythm Diagnosis Line: Prolonged QT Diagnosis Line: Abnormal ECG Diagnosis Line: When compared with ECG of 30-NOV-2016 19:41, Diagnosis Line: Premature supraventricular complexes are no longer Diagnosis Line: Present Diagnosis Line: Confirmed by BERNICE SCHULER MD ([id number]) on 02/12/2017 Diagnosis Line: 2:57:37 PM INTERPRETING MD: GANGA FLOWERS
--- NOTE | ~2017-02-10 | DS ---
Unit #: [id number] #: [id number] Patient: NICOLE HOLLIS [id number] [address] [address] [id number] I MR#: [id number] NAME: NICOLE HOLLIS ROOM: 301 Age: 66 Sex: F Admission Date: 02/11/2017 : 1950 Discharge Date: 02/13/2017 Attending Physician: Dinora Rizvi M.D. Primary Care Physician: David Ramirez M.D. DISCHARGE SUMMARY FINAL DIAGNOSES 1. Urinary tract infection extended spectrum beta lactamases Escherichia coli. 2. Weakness. 3. Hypertension. 4. Anemia. SECONDARY DIAGNOSES 1. Chronic lymphedema. 2. End-stage renal disease. 3. Chronic obstructive pulmonary disease. CONSULT Dr. Frdeo Dong. HOSPITAL COURSE Patient is a pleasant 66-year-old female, who presented with symptoms of UTI and generalized weakness. She has a history of cirrhosis. She was seen and evaluated (1) and cultures grew ESBL E. coli sensitive to imipenem. She is clinically stable for discharge. The plan will be to send her home on Invanz 500 mg IM daily for 10 days. She will be discharged home with home health. digital marketing manager to arrange IM antibiotics prior to discharge. She was scheduled to follow up with her PCP in the next three to five days. DISCHARGE MEDICATIONS 1. Lactulose 30 mL p.o. daily per home dose. 2. Paxil 20 mg p.o. daily. 3. Dulera 200 mcg inhalation b.i.d. 4. Levemir 30 units subcutaneous daily. 5. Famotidine 20 mg p.o. daily. 6. Renvela 1600 mg p.o. three times a day with meals. 7. Synthroid 125 mcg p.o. daily. 8. Invanz 500 mg IM daily for 10 days. This will be arranged by rn home care prior to discharge. PLAN Will be discharged in stable condition. Patient discussed with Dr. Fredo Dong prior to discharge. She will be discharged after she gets dialysis today. Time spent coordinating discharge about 36 minutes. Unit #: [id number] #: [id number] Patient: NICOLE HOLLIS Dictated by... oGrdon Montero TD: 02/13/2017 08:59 JOB #: [id number] DISCHARGE SUMMARY Page 1 of 1 X David Ramirez MD X DISCHARGE SUMMARY
[~2017-02-10 18:55] MED LIST changes: +RENVELA800 MG PO
[2017-02-10 22:21] LABS: URINE SOURCE CLEAN CATCH
[2017-02-10 22:28] LABS: BASOPHIL% 0.3 % (0-2.5); EOSINOPHIL# 0.1 X10e3 (0-0.7); EOSINOPHIL% 0.8 % (0.0-7.0); HEMATOCRIT 26.3 % (35.0-45.0); HEMOGLOBIN 8.7 gm/dL (12.0-16.0); LYMPHOCYTE# 1.2 X10e3 (1.0-3.5); LYMPHOCYTE% 15.5 % (17.0-45.0); MEAN CELL VOLUME 94.1 FL (83-96); MEAN CORPUSCULAR HEMOGLOBIN 31.1 PG (28-34); MEAN PLATELET VOLUME 8.1 FL (6.5-11.5); MONOCYTE# 0.7 X10e3 (0-1.0); MONOCYTE% 9.1 % (3.0-12.0); NEUTROPHIL# 5.7 X10e3 (1.5-7.1); NEUTROPHIL% 74.3 % (40-75); RED BLOOD COUNT 2.79 X10e (3.90-5.30); RED CELL DISTRIBUTION WIDTH 18.3 % (11.0-15.5); WHITE BLOOD COUNT 7.7 X10e3 (4.0-10.5)
[2017-02-10 22:32] LABS: URINE APPEARANCE TURBID; URINE BILIRUBIN NEG (NEG); URINE BLOOD 1+ (NEG); URINE COLOR YELLOW; URINE GLUCOSE NEG (NEG); URINE KETONE NEG (NEG); URINE LEUKOCYTE ESTERASE 3+ (NEG); URINE NITRATE NEG (NEG); URINE PH 7.5 (5-8); URINE PROTEIN 2+ (NEG); URINE SPECIFIC GRAVITY 1.012 (1.003-1.035); URINE UROBILINOGEN 0.2 MG/DL (NEG)
[2017-02-10 22:34] LABS: POC - CKMB 1.5 ng/mL (0.0-7.9); POC - TROPONIN <0.05 ng/mL (<=0.05)
[2017-02-10 22:36] LABS: CULTURE INDICATED? YES; URINE BACTERIA AUWI 4+ (NEGATIVE); URINE SQUAMOUS EPITHELIAL CELL NONE SEEN /[HPF]; UWBCS1 AUWI INNUM (0-5)
[2017-02-10 22:47] LABS: BUN/CREATININE RATIO 6.32; CALCIUM SERUM 8.6 mg/dL (8.4-10.2); CREATININE SERUM 4.9 mg/dL (0.6-1.4); DIFF IND YES; GLOM FILT RATE Estimated 8.5 mL/min (>60); PLATELET COUNT 49 X10e3 (140-420)
[2017-02-10 22:50] LABS: OVALOCYTES PRESENT; PLATELET ESTIMATE DECREASED (NORMAL)
[2017-02-10 22:51] LABS: ANISOCYTOSIS MOD
[2017-02-10 22:52] LABS: STOMATOCYTE PRESENT
[2017-02-11 14:58] LABS: BUN/CREATININE RATIO 6.37; CALCIUM SERUM 8.4 mg/dL (8.4-10.2); CREATININE SERUM 5.8 mg/dL (0.6-1.4); GLOM FILT RATE Estimated 6.9 mL/min (>60)
[2017-02-12 05:39] LABS: HEMATOCRIT 24.1 % (35.0-45.0); HEMOGLOBIN 7.9 gm/dL (12.0-16.0); MEAN CELL VOLUME 95.7 FL (83-96); MEAN CORPUSCULAR HEMOGLOBIN 31.3 PG (28-34); MEAN CORPUSCULAR HGB CONC 32.6 g/dL (30-36); MEAN PLATELET VOLUME 8.3 FL (6.5-11.5); RED BLOOD COUNT 2.52 X10e (3.90-5.30); RED CELL DISTRIBUTION WIDTH 17.9 % (11.0-15.5); WHITE BLOOD COUNT 5.7 X10e3 (4.0-10.5)
[2017-02-12 05:54] LABS: BUN/CREATININE RATIO 6.82; CREATININE SERUM 6.3 mg/dL (0.6-1.4); GLOM FILT RATE Estimated 6.2 mL/min (>60)
[2017-02-13 05:26] LABS: BASOPHIL% 0.3 % (0-2.5); EOSINOPHIL# 0.1 X10e3 (0-0.7); EOSINOPHIL% 1.6 % (0.0-7.0); HEMATOCRIT 23.6 % (35.0-45.0); HEMOGLOBIN 7.7 gm/dL (12.0-16.0); LYMPHOCYTE# 0.9 X10e3 (1.0-3.5); LYMPHOCYTE% 17.1 % (17.0-45.0); MEAN CELL VOLUME 96.3 FL (83-96); MEAN CORPUSCULAR HEMOGLOBIN 31.4 PG (28-34); MEAN CORPUSCULAR HGB CONC 32.6 g/dL (30-36); MEAN PLATELET VOLUME 8.9 FL (6.5-11.5); MONOCYTE# 0.6 X10e3 (0-1.0); MONOCYTE% 11.9 % (3.0-12.0); NEUTROPHIL# 3.7 X10e3 (1.5-7.1); NEUTROPHIL% 69.1 % (40-75); PLATELET COUNT 53 X10e3 (140-420); RED BLOOD COUNT 2.45 X10e (3.90-5.30); RED CELL DISTRIBUTION WIDTH 18.5 % (11.0-15.5); WHITE BLOOD COUNT 5.4 X10e3 (4.0-10.5)
[2017-02-13 05:28] LABS: DIFF IND NO
[2017-02-13 05:50] LABS: BUN/CREATININE RATIO 6.9; CALCIUM SERUM 7.9 mg/dL (8.4-10.2); CREATININE SERUM 7.1 mg/dL (0.6-1.4); GLOM FILT RATE Estimated 5.4 mL/min (>60)
[2017-02-14 05:23] LABS: HEMATOCRIT 28.1 % (35.0-45.0); HEMOGLOBIN 9.4 gm/dL (12.0-16.0); MEAN CELL VOLUME 93.8 FL (83-96); MEAN CORPUSCULAR HEMOGLOBIN 31.3 PG (28-34); MEAN CORPUSCULAR HGB CONC 33.4 g/dL (30-36); MEAN PLATELET VOLUME 8.9 FL (6.5-11.5); RED CELL DISTRIBUTION WIDTH 18.3 % (11.0-15.5); WHITE BLOOD COUNT 4.8 X10e3 (4.0-10.5)
[2017-02-14 05:52] LABS: BUN/CREATININE RATIO 5.95; CALCIUM SERUM 8.1 mg/dL (8.4-10.2); GLOM FILT RATE Estimated 10.2 mL/min (>60); POTASSIUM 3.5 mmol/L (3.5-5.1)
[2017-02-14 05:53] LABS: CREATININE SERUM 4.2 mg/dL (0.6-1.4)
[2017-02-14 18:43] LABS: URINE APPEARANCE TURBID; URINE BILIRUBIN NEG (NEG); URINE BLOOD 2+ (NEG); URINE COLOR YELLOW; URINE GLUCOSE NEG (NEG); URINE KETONE NEG (NEG); URINE LEUKOCYTE ESTERASE 3+ (NEG); URINE NITRATE NEG (NEG); URINE PROTEIN 2+ (NEG); URINE SPECIFIC GRAVITY 1.013 (1.003-1.035); URINE UROBILINOGEN 0.2 MG/DL (NEG)
[2017-02-14 18:45] LABS: CULTURE INDICATED? YES; URINE BACTERIA AUWI 4+ (NEGATIVE); URINE SQUAMOUS EPITHELIAL CELL MOD /[HPF]; UWBCS1 AUWI INNUM (0-5)
[2017-02-14 18:53] LABS: U HYALINE CASTS AUWI 0-2 /[LPF]
[2017-02-15 06:12] LABS: HEMATOCRIT 27.7 % (35.0-45.0); HEMOGLOBIN 9.2 gm/dL (12.0-16.0); MEAN CORPUSCULAR HEMOGLOBIN 31.5 PG (28-34); MEAN CORPUSCULAR HGB CONC 33.1 g/dL (30-36); MEAN PLATELET VOLUME 7.9 FL (6.5-11.5); RED BLOOD COUNT 2.92 X10e (3.90-5.30); RED CELL DISTRIBUTION WIDTH 18.5 % (11.0-15.5)
[2017-02-15 06:36] LABS: BUN/CREATININE RATIO 7.34; CALCIUM SERUM 8.2 mg/dL (8.4-10.2); CREATININE SERUM 4.9 mg/dL (0.6-1.4); GLOM FILT RATE Estimated 8.5 mL/min (>60); POTASSIUM 3.5 mmol/L (3.5-5.1)
[2017-02-16] MEDS ORDERED: LEVEMIR SUBQ (14:25)
[2017-02-16] MEDS ORDERED: NOVOLOG100 U/ML SUBQ (14:35)
[2017-02-16] MEDS ORDERED: MERREM500 MG IV (17:29)
[2017-02-17 06:45] LABS: HEMOGLOBIN 9.5 gm/dL (12.0-16.0); MEAN CORPUSCULAR HEMOGLOBIN 32.1 PG (28-34); MEAN CORPUSCULAR HGB CONC 33.8 g/dL (30-36); MEAN PLATELET VOLUME 8.7 FL (6.5-11.5); RED BLOOD COUNT 2.95 X10e (3.90-5.30); RED CELL DISTRIBUTION WIDTH 18.7 % (11.0-15.5); WHITE BLOOD COUNT 3.7 X10e3 (4.0-10.5)
[2017-02-17 07:07] LABS: BUN/CREATININE RATIO 7.75; CALCIUM SERUM 8.5 mg/dL (8.4-10.2); CREATININE SERUM 4.9 mg/dL (0.6-1.4); GLOM FILT RATE Estimated 8.5 mL/min (>60); POTASSIUM 4.2 mmol/L (3.5-5.1)
== END 2017-02-17 18:21 | DRG 689 ==
LOC: CED 18:55 → C3A PCU 02-11 00:30 → CEDOF 02-11 00:30 → CED 02-11 00:33 → CEDOF 02-11 00:33 → C3A PCU 02-11 01:26 → CEDOF 02-11 01:26 → C3A PCU 02-11 01:26
PROVIDERS: Emergency Medicine; Family Medicine; Internal Medicine Nephrology
PROC: 05H933Z Insertion of Infusion Device into Right Brachial Vein, Percutaneous Approach (ICD-10-PCS; 2017-02-11)
PROC: B54MZZA Ultrasonography of Right Upper Extremity Veins, Guidance (ICD-10-PCS; 2017-02-11)
PROC: 5A1D60Z (ICD-10-PCS; principal; 2017-02-13)
PROC: 30233N1 Transfusion of Nonautologous Red Blood Cells into Peripheral Vein, Percutaneous Approach (ICD-10-PCS; 2017-02-13)
DX: N39.0 Urinary tract infection, site not specified (principal); N18.6 End stage renal disease; I13.2 Hypertensive heart and chronic kidney disease with heart failure and with stage 5 chronic kidney disease, or end stage renal disease; D69.6 Thrombocytopenia, unspecified; E11.22 Type 2 diabetes mellitus with diabetic chronic kidney disease; F03.90 Unspecified dementia, unspecified severity, without behavioral disturbance, psychotic disturbance, mood disturbance, and anxiety; E66.01 Morbid (severe) obesity due to excess calories; I50.32 Chronic diastolic (congestive) heart failure; K74.60 Unspecified cirrhosis of liver; D63.1 Anemia in chronic kidney disease; I89.0 Lymphedema, not elsewhere classified; E03.9 Hypothyroidism, unspecified; I48.0 Paroxysmal atrial fibrillation; E66.9 Obesity, unspecified; Z85.72 Personal history of non-Hodgkin lymphomas; Z90.49 Acquired absence of other specified parts of digestive tract; Z98.84 Bariatric surgery status; K75.81 Nonalcoholic steatohepatitis (NASH); B96.20 Unspecified Escherichia coli [E. coli] as the cause of diseases classified elsewhere; J44.9 Chronic obstructive pulmonary disease, unspecified; Z68.36 Body mass index [BMI] 36.0-36.9, adult
CPT/HCPCS: 36415; 51701; 80048; 81003; 82553; 82607; 82947; 84443; 84484; 85025; 85027; 86850; 86900; 86901; 86923; 87086; 87088; 87186; 93005; 97110; 97116; 97163; 97166; 97530; 97535; 99285; G8978-GP; G8979-GP; G8987-GO; G8988-GO; J0696; J1815; J2185; P9016; Q4081

== ENCOUNTER 2017-02-21 17:21 | Emergency (ER) | payer MEDICARE, BC ==
--- NOTE | ~2017-02-21 | EKG ---
PATIENT: NICOLE HOLLIS UNIT #: [id number] Ventricular Rate: 91 BPM Atrial Rate: 91 BPM P-R Interval: 162 ms QRS Duration: 78 ms Q-T Interval: 416 ms QTC Calculation(Bezet): 511 ms P [place]: 54 degrees Calculated R [place]: 79 degrees Calculated T [place]: 61 degrees Diagnosis Line: Normal sinus rhythm with sinus arrhythmia Diagnosis Line: Nonspecific ST abnormality Diagnosis Line: Prolonged QT Diagnosis Line: Abnormal ECG Diagnosis Line: When compared with ECG of 10-FEB-2017 21:31, Diagnosis Line: No significant change was found Diagnosis Line: Confirmed by BERNICE SCHULER MD ([id number]) on 02/22/2017 Diagnosis Line: 7:17:39 AM INTERPRETING MD: GANGA FLOWERS
--- NOTE | ~2017-02-21 | CR72 ---
[facility] A Service of [facility] RADIOLOGY TEXT RESULTS PATIENT: NICOLE HOLLIS LOCATION: [place] : [birth year] UNIT #: [id number] AGE: [address]: Radhika Torrez MD SEX: F ORDER DR: [id number] [facility]. [place], [place] [address] [id number] E MR#: [id number] Acc #: [id number] NAME: NICOLE HOLLIS : 1950 SEX: F STUDY DATE/TIME: 02/21/2017 19:01 UNIT: [facility] ROOM: STUDY DESCRIPTION: CR Chest Single View Portable Attending Physician: Radhika Torrez M.D. Ordering Physician: Radhika Torrez M.D. Primary Care Physician: David Ramirez M.D. MEDICAL IMAGING REPORT This report is preliminary unless electronic signature is present EXAM Portable chest. HISTORY Shortness of breath, weakness, onset 1 day ago. COMPARISON 11/30/2016. TECHNIQUE Single AP view chest was obtained. FINDINGS Vascular pedicle of the mediastinum is wider than on the previous examination. There is mild cardiomegaly with vascular congestion. Findings suggest fluid overload or mild congestive heart failure. No focal infiltrates are seen. IMPRESSION Fluid overload versus congestive heart failure. There is increased pulmonary vascularity since the previous exam with widening of the vascular pedicle and mediastinum. Dictated by... Darian Logan M.D. THIS IS AN ELECTRONICALLY VERIFIED REPORT Darian Logan M.D. at 02/23/2017 7:08 AM RLF/gz TD: 02/22/2017 08:29 JOB #: [id number] [facility] A Service of [facility] RADIOLOGY TEXT RESULTS PATIENT: NICOLE HOLLIS LOCATION: [place] : 48 UNIT #: [id number] AGE: [address]: Radhika Torrez MD SEX: F ORDER DR: MEDICAL IMAGING REPORT Page 1 of 1 COPY
--- NOTE | ~2017-02-21 | CT71 ---
[facility] A Service of [facility] RADIOLOGY TEXT RESULTS PATIENT: NICOLE HOLLIS LOCATION: [place] : 48 UNIT #: [id number] AGE: [address]: Radhika Torrez MD SEX: F ORDER DR: [id number] [facility] [place] [facility]. [place], [place] [address] [id number] MR#: [id number] Acc #: [id number] NAME: NICOLE HOLLIS : 1950 SEX: F STUDY DATE/TIME: 02/21/2017 20:17 UNIT: [facility] ROOM: STUDY DESCRIPTION: CT Head Wo Contrast Attending Physician: Radhika Torrez M.D. Ordering Physician: Radhika Torrez M.D. Primary Care Physician: David Ramirez M.D. MEDICAL IMAGING REPORT This report is preliminary unless electronic signature is present EXAM Head CT without contrast HISTORY Confusion, onset today. COMPARISON 11/02/2016 TECHNIQUE Axial noncontrast images were obtained from the skull base to the vertex. This CT exam was performed with one or more of the following radiation dose reduction techniques: automatic exposure control, adjustment of mA and/or kV according to patient size, and iterative reconstruction. FINDINGS Ventricular size and configuration are normal. There is no evidence of acute infarct or hemorrhage. There are no extraaxial fluid collections. No mass lesion or mass effect is seen. There are no skull fractures. IMPRESSION Normal noncontrast head CT. Dictated by... Darian Logan M.D. THIS IS AN ELECTRONICALLY VERIFIED REPORT Darian Logan M.D. at 02/23/2017 7:08 AM RLF/refugio [facility] A Service [facility] RADIOLOGY TEXT RESULTS PATIENT: NICOLE HOLLIS LOCATION: [place] : 48 UNIT #: [id number] AGE: [address]: Radhika Torrez MD SEX: F ORDER DR: TD: 02/22/2017 09:34 JOB #: [id number] MEDICAL IMAGING REPORT Page 1 of 1 COPY
[~2017-02-21 17:21] MED LIST changes: +LEVEMIR SUBQ; +MERREM500 MG IV; +NOVOLOG100 U/ML SUBQ
[2017-02-21 18:59] LABS: BASOPHIL% 0.6 % (0-2.5); EOSINOPHIL# 0.1 X10e3 (0-0.7); EOSINOPHIL% 1.4 % (0.0-7.0); HEMATOCRIT 29.1 % (35.0-45.0); HEMOGLOBIN 9.7 gm/dL (12.0-16.0); LYMPHOCYTE# 0.9 X10e3 (1.0-3.5); LYMPHOCYTE% 23.6 % (17.0-45.0); MEAN CELL VOLUME 94.3 FL (83-96); MEAN CORPUSCULAR HEMOGLOBIN 31.5 PG (28-34); MEAN CORPUSCULAR HGB CONC 33.5 g/dL (30-36); MEAN PLATELET VOLUME 8.8 FL (6.5-11.5); MONOCYTE# 0.6 X10e3 (0-1.0); MONOCYTE% 15.1 % (3.0-12.0); NEUTROPHIL# 2.2 X10e3 (1.5-7.1); NEUTROPHIL% 59.3 % (40-75); PLATELET COUNT 52 X10e3 (140-420); RED BLOOD COUNT 3.09 X10e (3.90-5.30); RED CELL DISTRIBUTION WIDTH 19.8 % (11.0-15.5); WHITE BLOOD COUNT 3.7 X10e3 (4.0-10.5)
[2017-02-21 19:12] LABS: URINE SOURCE CLEAN CATCH
[2017-02-21 19:17] LABS: POC - CKMB 1.5 ng/mL (0.0-7.9); POC - TROPONIN <0.05 ng/mL (<=0.05)
[2017-02-21 19:18] LABS: INR 1.3; PARTIAL THROMBOPLASTIN TIME 25.3 SECONDS (23.5-31.3)
[2017-02-21 19:19] LABS: URINE APPEARANCE CLOUDY; URINE BILIRUBIN NEG (NEG); URINE BLOOD 1+ (NEG); URINE COLOR YELLOW; URINE GLUCOSE NEG (NEG); URINE KETONE TRACE (NEG); URINE LEUKOCYTE ESTERASE 3+ (NEG); URINE NITRATE NEG (NEG); URINE PH 7.5 (5-8); URINE PROTEIN 2+ (NEG); URINE SPECIFIC GRAVITY 1.013 (1.003-1.035)
[2017-02-21 19:22] LABS: CULTURE INDICATED? YES; URINE BACTERIA AUWI NEG (NEGATIVE); URINE SQUAMOUS EPITHELIAL CELL NONE SEEN /[HPF]; UWBCS1 AUWI 200-300 (0-5)
[2017-02-21 19:32] LABS: ALBUMIN SERUM 2.5 g/dL (3.5-5.0); BILIRUBIN, DIRECT 0.3 mg/dL (0.0-0.2); BILIRUBIN,INDIRECT 1.3 mg/dL (0.0-0.9); BILIRUBIN,TOTAL 1.6 mg/dL (0.2-2.0); BUN/CREATININE RATIO 7.44; CALCIUM SERUM 8.5 mg/dL (8.4-10.2); CREATININE SERUM 4.7 mg/dL (0.6-1.4); GLOM FILT RATE Estimated 8.9 mL/min (>60); MAGNESIUM 2.1 mg/dL (1.6-3.0); POTASSIUM 4.3 mmol/L (3.5-5.1); PROTEIN TOTAL SERUM 5.8 g/dL (6.0-8.3)
[2017-02-21 19:39] LABS: DIFF IND YES
[2017-02-21 19:41] LABS: ANISOCYTOSIS MOD; PLATELET ESTIMATE DECREASED (NORMAL); POIKILOCYTOSIS SL
== END 2017-02-21 23:32 ==
LOC: CED 17:21
PROVIDERS: Student in an Organized Health Care Education/Training Program
DX: E11.22 Type 2 diabetes mellitus with diabetic chronic kidney disease (principal); I13.0 Hypertensive heart and chronic kidney disease with heart failure and stage 1 through stage 4 chronic kidney disease, or unspecified chronic kidney disease; N18.6 End stage renal disease; I50.9 Heart failure, unspecified; J44.9 Chronic obstructive pulmonary disease, unspecified; F32.9 Major depressive disorder, single episode, unspecified; Z88.5 Allergy status to narcotic agent; Z88.1 Allergy status to other antibiotic agents; Z79.82 Long term (current) use of aspirin; Z79.899 Other long term (current) drug therapy; Z79.4 Long term (current) use of insulin
CPT/HCPCS: 36415; 51701; 70450; 71010; 80048; 80076; 81003; 82140; 82553; 82947; 83735; 83880; 84484; 85025; 85610; 85730; 87040; 87086; 93005; 99285

== ENCOUNTER 2017-03-11 13:44 | Inpatient (IN) | payer MEDICARE, BC ==
[~2017-03-11] VITALS: Ht 172.7 cm; Wt 95.5 kg
--- NOTE | ~2017-03-11 | EKG ---
PATIENT: NICOLE HOLLIS UNIT #: [id number] Ventricular Rate: 91 BPM Atrial Rate: 91 BPM P-R Interval: 166 ms QRS Duration: 80 ms Q-T Interval: 408 ms QTC Calculation(Bezet): 501 ms P [place]: 82 degrees Calculated R [place]: 86 degrees Calculated T [place]: 67 degrees Diagnosis Line: Sinus rhythm with Premature atrial complexes Diagnosis Line: Prolonged QT Diagnosis Line: Abnormal ECG Diagnosis Line: When compared with ECG of 10-MAR-2017 23:35, Diagnosis Line: (unconfirmed) Diagnosis Line: Premature atrial complexes are now Present Diagnosis Line: Confirmed by LAVERNE GAONA MD ([id number]) on 03/12/2017 Diagnosis Line: 11:05:01 PM INTERPRETING MD: JIMENEZ FLOWERS
--- NOTE | ~2017-03-11 | CO ---
Unit #: [id number] #: [id number] Patient: NICOLE HOLLIS [id number] [facility] [address] [place], [place] [address] [id number] I MR#: [id number] NAME: NICOLE HOLLIS ROOM: 334 Age: 66 Sex: F Admission Date: 03/11/2017 : 1950 Attending Physician: Dinora Rizvi M.D. Primary Care Physician: David Ramirez M.D. Consultation Date: 03/15/2017 CONSULTATION REPORT REASON FOR CONSULTATION Depression. HISTORY OF PRESENT ILLNESS Ms. Mello is a 66-year-old female, seen in room 334, bed 1 on 03/15/2017 at [facility]. The patient was admitted on 03/11/2017 with sepsis and UTI. The patient reports that she is feeling better, but still feeling sad, depressed, anxious, trouble sleeping. Denied any suicidal or homicidal ideation. The patient is on Paxil. The patient's vital signs; temperature 97.9, pulse 76, respirations 18, blood pressure 106/64, and oxygen saturation 100%. PAST PSYCHIATRIC HISTORY Remarkable for history of depression. No history of any suicide attempt or any inpatient treatment. MEDICAL HISTORY History of end-stage renal disease, on hemodialysis secondary to HOWELL and anemia of chronic disease; history of chronic diastolic congestive heart failure; diabetes, on insulin; hypertension; history of chronic lymphedema of lower extremity; chronic obstructive pulmonary disease; hypothyroidism; paroxysmal atrial fibrillation; history of lymphedema; obesity; history of recurrent urinary tract infection; obstructive sleep apnea; history of pancytopenia. MEDICATIONS The patient is on famotidine, lactulose, Paxil 20 mg daily, Dulera, Levemir, NovoLog. FAMILY HISTORY AND SOCIAL HISTORY The patient has a poor support system. No history of abuse. No history of any substance abuse. REVIEW OF SYSTEMS Complete review of system is unremarkable except as mentioned above. MENTAL STATUS EXAMINATION The patient's vital signs; temperature 97.9, pulse 76, respirations 18, blood pressure 106/64, oxygen saturation 100%. General appearance; the patient dressed casually in hospital attire, lying comfortably in bed. Attention span and concentration, fair. Speech; regular rate and coherent, soft spoken. Oriented in time, place, and person. Mood and affect, sad and depressed. Thought process, coherent. Thought content, the patient denied any thoughts of harming self or others, but reported Unit #: [id number] #: [id number] Patient: NICOLE HOLLIS feeling sad and depressed. Recent and remote memory, fair to slightly impaired. Language, intact. Fund of knowledge, fair. Insight and judgment, fair to slightly impaired. DIAGNOSES Psychiatric: Major depressive disorder, recurrent, severe, F33.2. Secondary diagnosis: Deferred. Medical diagnosis: Please refer to H and P. Stressors: Psychosocial stressors. ASSESSMENT/PLAN 1. Supportive psychotherapy and psychoeducation provided to the patient. 2. Educated about benefits and side effects of medication and course and prognosis of illness. 3. Advised to resume Paxil 20 mg daily. If needed, consider further adjustment of medication. Please feel free to call if any questions, telephone #[phone]. Dictated by... Gordon Peres/alisha TD: 03/15/2017 16:16 JOB #: [id number] CONSULTATION REPORT Page 1 of 1 X Umesh Gr MD X CONSULTATION REPORT
--- NOTE | ~2017-03-11 | CR72 ---
[facility] A Service of [facility] RADIOLOGY TEXT RESULTS PATIENT: NICOLE HOLLIS LOCATION: [facility] 334-01 : [birth year] UNIT #: [id number] AGE: [address]: Dinora Rizvi MD SEX: F ORDER DR: [id number] [facility] [address] [place], [place] [address] [id number] I MR#: [id number] Acc #: [id number] NAME: NICOLE HOLLIS : 1950 SEX: F STUDY DATE/TIME: 03/11/2017 15:06 UNIT: [facility] ROOM: [facility] STUDY DESCRIPTION: CR Chest Single View Portable Attending Physician: Dinora Rizvi M.D. Ordering Physician: Darian Driver M.D. Primary Care Physician: David Ramirez M.D. MEDICAL IMAGING REPORT This report is preliminary unless electronic signature is present EXAM Portable chest x-ray, 03/11/17. HISTORY Shortness of air. DC yesterday for UTI, decreased blood pressure 93/32, altered mental status, somewhat incoherent, congestion, short of air, duration 1 week. FINDINGS AP radiograph of the chest is present. Comparison 03/10/17. Lungs are moderately well inflated. There is no clear indication of acute infectious or inflammatory disease, pleural effusion, or pneumothorax. No suspicious nodule. Multiple calcified granulomata and bilateral calcified hilar lymph nodes, unchanged. Heart upper limits of normal in size. Stable. No acute appearing bony abnormality. Vascular stent in the left axillobrachial region, likely venous in location given caliber. Unchanged. Dictated by... Jovanny Soriano M.D. THIS IS AN ELECTRONICALLY VERIFIED REPORT Jovanny Soriano M.D. at 03/13/2017 5:03 PM Juany TD: 03/12/2017 14:59 JOB #: [id number] MEDICAL IMAGING REPORT Page 1 of 1 COPY
--- NOTE | ~2017-03-11 | HP ---
Unit #: [id number] #: [id number] Patient: NICOLE HOLLIS [id number] [address] [address] [id number] I MR#: [id number] NAME: NICOLE HOLLIS ROOM: [facility] Age: 66 Sex: F Admission Date: 03/11/2017 : 1950 Attending Physician: Dinora Rizvi M.D. Primary Care Physician: David Ramirez M.D. HISTORY AND PHYSICAL CHIEF COMPLAINT Weakness. 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 The patient was seen here in the emergency room yesterday with weakness and urinary tract infection. The patient was found to have ESBL urinary tract infection and was discharged home on meropenem. The patient went home and was unsteady on his gait and brought back again within a few hours for similar reasons. The patient's lactate is 2.6 and the patient is being admitted for the above reasons. The patient was started on dialysis yesterday and the patient follows up with renal doctor, Dr. Dong in the hospital. PAST MEDICAL HISTORY History of end-stage renal disease on hemodialysis, secondary to HOWELL and anemia of chronic disease, history of chronic diastolic congestive heart failure, diabetes on insulin, hypertension, history of chronic lymphedema of lower extremities, chronic obstructive pulmonary disease, hypothyroidism, paroxysmal atrial fibrillation, history of lymphoma, obesity, history of recurrent urinary tract infections, obstructive sleep apnea, history of pancytopenia. PAST SURGICAL HISTORY History of cataract extraction, gastric bypass, cholecystectomy, bilateral tubal ligation, bilateral arm surgery, left arm fistula, tonsillectomy, left cyst removal from left wrist, history of abdominoplasty from staph, right internal catheter. ALLERGIES Allergic to sulfa, morphine, Neurontin. HOME MEDICATIONS The patient is on: 1. Famotidine 2. Lactulose 3. Paxil 4. Renvela 5. Dulera Unit #: [id number] #: [id number] Patient: NICOLE HOLLIS 6. Levemir 7. NovoLog 8. Merrem FAMILY HISTORY Positive for coronary artery disease. SOCIAL HISTORY The patient lives with her daughter, is a lifelong nonsmoker, does not drink alcohol. REVIEW OF SYSTEMS Positive for weakness, positive for shoulder pain, positive for the back pain, and all other review of systems are reviewed and none except as mentioned in the history of present illness. PHYSICAL EXAMINATION GENERAL: The patient is lying on the bed, not in acute distress. VITALS: Temperature 97.9, pulse rate 96, respiratory 18, and blood pressure 119/71, satting 98% at room air. HEENT: Head: Atraumatic and normocephalic. Pupils equal, round, reactive to light and accommodation. Extraocular movements are intact. NECK: Supple. LUNGS: Decreased air entry at the bases. HEART: Regular rate and rhythm. ABDOMEN: Soft, positive bowel sounds. EXTREMITIES: Bilateral lower extremity edema, chronic venous stasis bilaterally with chronic changes. NEUROLOGIC: No focal neurologic deficit, moving all extremities. PSYCH: Normal mood and affect. DIAGNOSTIC STUDIES LAB DATA: Glucose is 212 and WBCs 7.9, hemoglobin 11.4, hematocrit 35.4, platelets 44, and neutrophils 82.3, bands 4%, lactic acid is 2.6 and sodium 137, potassium 4.4, chloride 93, bicarb 32, glucose 241, BUN 36, creatinine 5.2, calcium 8.8, AST 30, ALT 24, alkaline phosphatase 158, direct bili 0.5, and indirect bili 41.5, and troponin is less than 0.05 x2, and urinalysis showed 3+, leukocyte esterase, 1+ protein, and 100-200 WBCs. ASSESSMENT/PLAN 1. Sepsis. 2. Urinary tract infection. 3. End-stage renal disease on hemodialysis. Plan is to admit the patient to the telemetry, continue with IV fluids per sepsis protocol, and continue labs with renal consult for dialysis today and continue with the sepsis protocol and continue with antibiotics, Merrem, and the patient will be placed on the contact isolation for the urinary tract infection and will repeat the labs again in the morning, and low dose sliding scale and Accu-Cheks a.c. and h.s., and the patient will also have the OT and PT evaluation during the hospitalization, and further recommendations will follow. Dictated by Unit #: [id number] #: [id number] Patient: NICOLE HOLLIS M.D. AMA/lam TD: 03/12/2017 11:14 JOB #: [id number] HISTORY AND PHYSICAL Page 1 of 1 X EVER ACHARYA MD X HISTORY AND PHYSICAL
--- NOTE | ~2017-03-11 | CO ---
Unit #: [id number] #: [id number] Patient: NICOLE LINO [id number] [facility] [address] [facility]. [place], [place] [address] [id number] I MR#: [id number] NAME: NICOLE LINO ROOM: 334 Age: 66 Sex: F Admission Date: 03/11/2017 : 1950 Attending Physician: Dinora Rizvi M.D. Primary Care Physician: David Ramirez M.D. Consultation Date: 03/12/2017 CONSULTATION REPORT HISTORY OF PRESENT ILLNESS This 66-year-old white female with end-stage renal disease, on dialysis Monday, Monday, Monday, is well known to me. She has multiple chronic medical problems including ESRD, nonalcoholic steatohepatitis, chronic diastolic congestive heart failure, diabetes, chronic lower extremity edema, and COPD, who was actually just discharged from [facility] on 03/11/2017. She is being discharged to home, but when she was delivered to her house, she was unable to transfer inside and was unable to get 2 dialysis, so she was brought back to the emergency room. In the emergency room, her blood pressures in the 80s and 90s systolic. She is alert and oriented and has no complaints. PAST MEDICAL HISTORY As above. PAST SURGICAL HISTORY Gastric bypass, cholecystectomy, left upper extremity fistula creation, history of exploratory laparotomy from a staph infection. ALLERGIES To sulfa, morphine, and Neurontin. HOME MEDICATIONS Include insulin, Dulera, Renvela, Paxil, lactulose, and Pepcid. FAMILY HISTORY Noncontributory. SOCIAL HISTORY The patient lives with her daughter. Her daughter is her medical decision maker. REVIEW OF SYSTEMS Currently in the emergency room, the patient is smiling and able to answer my questions. She does appear weak. She denies chest pain or shortness of breath. No nausea, vomiting, or diarrhea. She denies fever or chills. She denies blurry vision, and she denies urinary symptoms. Other 13 systems reviewed unless noted are negative. PHYSICAL EXAMINATION VITAL SIGNS: Her blood pressure ranging between 103/53 to 87/52, temperature is 97.6, heart rate is 85. GENERAL: She appears chronically ill. NECK: No JVD. No lymphadenopathy. No thyromegaly. Unit #: [id number] #: [id number] Patient: NICOLE LINO LUNGS: Clear to auscultation bilaterally. Little bit diminished in the bases. CARDIAC: S1, S2. Normal sinus rhythm. No rub or gallop. ABDOMEN: Soft, nontender, nondistended. Obese. Positive bowel sounds. EXTREMITIES: Shows no cyanosis or clubbing. She has 1+ pitting edema of the lower extremities. DIAGNOSTIC STUDIES LABORATORY RESULTS: Shows a hemoglobin of 10, platelet count of 34, white blood cell count of 4.8. BUN of 43, creatinine 5.8, sodium of 136, potassium 4.1, glucose of 373, bicarbonate of 32, calcium 8.2. ASSESSMENT 1. End-stage renal disease. She missed dialysis Monday due to weakness and inability to transfer to her transportation. Her blood pressure was also low last night. She seems more stable today. We will order dialysis and see how she tolerates it while in the hospital. 2. Recent urinary tract infection with discharge and readmission on 03/11/2017. 3. Immobility and weakness. 4. Chronic thrombocytopenia. PLAN It may be helpful if she qualifies to transfer to rehab center that contains dialysis. Thank you very much for allowing me to see Ms. Lino in consultation. We will follow closely with you. Dictated by... Hailey Moses M.D. KENYA/alisha TD: 03/12/2017 18:06 JOB #: [id number] CONSULTATION REPORT Page 1 of 1 X Hailey Moses MD CONSULTATION REPORT
--- NOTE | ~2017-03-11 | EKG ---
PATIENT: NICOLE HOLLIS UNIT #: [id number] Ventricular Rate: 88 BPM Atrial Rate: 88 BPM P-R Interval: 154 ms QRS Duration: 78 ms Q-T Interval: 402 ms QTC Calculation(Bezet): 486 ms P [place]: 83 degrees Calculated R [place]: 88 degrees Calculated T [place]: 55 degrees Diagnosis Line: Sinus rhythm with Premature atrial complexes Diagnosis Line: Otherwise normal ECG Diagnosis Line: When compared with ECG of 11-MAR-2017 14:36, Diagnosis Line: No significant change was found Diagnosis Line: Confirmed by BERNICE SCHULER MD ([id number]) on 03/15/2017 Diagnosis Line: 7:48:41 AM INTERPRETING MD: GANGA FLOWERS
--- NOTE | ~2017-03-11 | CO ---
Unit #: [id number] #: [id number] Patient: NICOLE LINO [id number] [facility] [address] [facility]. [place], [place] [address] [id number] I MR#: [id number] NAME: NICOLE LINO ROOM: 334 Age: 66 Sex: F Admission Date: 03/11/2017 : 1950 Attending Physician: Dinora Rizvi M.D. Primary Care Physician: David Ramirez M.D. Consultation Date: 03/13/2017 CONSULTATION REPORT REASON FOR CONSULTATION Paroxysmal atrial fibrillation. HISTORY OF PRESENT ILLNESS This is a 66-year-old white female, whom we seen in the past here at [facility]. She has been noncompliant to follow up in the office. She has end-stage renal disease, cirrhosis secondary to HOWELL, anemia of chronic disease, chronic thrombocytopenia, COPD, paroxysmal atrial fibrillation, diabetic, hypertension, EF of 50% to 55% with moderate aortic stenosis and moderate pulmonary hypertension, who recently was discharged here from this facility and went home and was unsteady on her gait and could not make it in to dialysis with family assisting, so she was brought back into the emergency room by EMS. The patient also was found to have ESBL urinary tract infection. On the last admission, the patient had ESBL urinary tract infection and was discharged home on meropenem. On this admission, the patient's initial lactic acid was 2.6. She was hypotensive with blood pressures in the 80s and 90s systolically. The patient was supposed to get dialysis today and may be just transferred back home in the next day or so. During the night, she had a run of paroxysmal atrial fibrillation. During that episode, an EKG was obtained, it shows sinus rhythm with frequent premature atrial contractions. She is now remaining in sinus rhythm with frequent PACs. Cardiology was consulted to assist with evaluation and management for the paroxysmal atrial fibrillation. On interviewing and examining with the patient, she denies any chest pain; pain in her neck, bilateral jaws, shoulders, arms, or elbow. She denies any palpitations. She is very sedentary, only gets up with help and uses a walker and has not been up much in the last couple of days. She denies any dizziness, presyncope, or syncope. No distress. PAST MEDICAL HISTORY 1. End-stage renal disease, on hemodialysis. 2. History of cirrhosis secondary to nonalcoholic steatohepatitis. 3. Anemia of chronic disease. 4. Chronic thrombocytopenia. 5. COPD. Obstructive sleep apnea, noncompliant with CPAP. 6. Diagnosis of paroxysmal atrial fibrillation in 03/2016. Had been on carvedilol, but since then it has been stopped. 7. Hypothyroidism. Unit #: [id number] #: [id number] Patient: NICOLE LINO 8. Diabetes mellitus, type 2. 9. Hypertension, now hypotension. 10. Chronic diastolic congestive heart failure. 11. In 03/2016, 2D echo, LVEF of 50% to 55% with mildly dilated left atrium, moderately dilated right ventricle, moderate aortic stenosis, and mild tricuspid regurgitation. 12. On 03/15/2016, cardiac cath revealed left main was normal, LAD normal, left circumflex revealed 75% to 80% stenosis at the origin of a large marginal branch, RCA showed 20% to 30% stenosis in the mid area, mild aortic stenosis, and moderate pulmonary artery hypertension. 13. History of gastric bypass. 14. History of Hodgkin lymphoma, status post chemo in the past. 15. Chronic lymphedema. 16. Recently discharged . PAST SURGICAL HISTORY 1. Cataract extraction. 2. Gastric bypass. 3. Cholecystectomy. 4. Bilateral tubal ligation. 5. Bilateral arm surgery. 6. Left arm fistula. 7. Tonsillectomy. 8. Cyst removed from left wrist. 9. Abdominoplasty. 10. History of right tunnel catheter. HOME MEDICATIONS Pepcid 20 mg p.o. daily, lactulose 30 mL p.o. daily, Synthroid 125 mcg p.o. daily, Paxil 20 mg p.o. daily, Renvela 800 mg p.o. t.i.d. with meals, Dulera inhaler b.i.d., Levemir 10 units subcu before breakfast and NovoLog subcu before meals and at bedtime sliding scale, Merrem 500 mg IV every 12 hours and that was per home health. ALLERGIES Sulfonamides, morphine, and gabapentin. SOCIAL HISTORY According to information, the patient had been living with her daughter and son-in-law. She states she has been a lifelong nonsmoker. No alcohol or illicit drug abuse. The patient says she is very sedentary. She can get up with assistance and uses a walker. FAMILY HISTORY Both her parents in her 80s. They had some type of heart attack. She is not sure of details of siblings. She is not aware of any major health problems. REVIEW OF SYSTEMS See details in HPI. PHYSICAL EXAMINATION GENERAL: Ms. Lino is a 66-year-old white female, in no acute respiratory distress. She answers most questions appropriately. Has some poor memory recall. VITAL SIGNS: Currently blood pressure is 113/60, heart rate 82, respirations 18, temperature 97.7, O2 saturations 96% on room air. NECK: Trachea midline. No thyromegaly or lymphadenopathy. Normal Unit #: [id number] #: [id number] Patient: NICOLE LINO carotid upstrokes. No jugular venous distention. HEART: S1 and S2, regular rate and rhythm. Systolic murmur over aortic region, left sternal border. LUNGS: Diminished, otherwise clear. ABDOMEN: Obese, soft, nontender. EXTREMITIES: Pedal pulses are palpable. 1+ pedal edema. DIAGNOSTIC STUDIES LABORATORY RESULTS: Today's labs; glucose is 135, BUN 55, creatinine 7.1, eGFR 5.4. Sodium 141, potassium 4.1, chloride 100, CO2 of 27, calcium is 8.6, magnesium is 2.1, total protein 6.2, albumin 3.0, bilirubin total 0.2, AST 30, ALT 24, alkaline phosphatase is 158. Ammonia level is 145. Lactic acid 2.6 on admission, later 2.0. WBCs 6.8, hemoglobin 10.4, hematocrit 30.9, platelets are down to 43. CK-MB is 1.2, troponin less than 0.05. CK-MB is less than 1.0. Troponin less than 0.05. Pro-time is 13.2 with an INR of 1.2. Urinalysis shows 3+ leukocyte esterase, 1+ protein, 0.2 urobilinogen, 100 to 200 wbc's. IMAGING STUDIES: Chest x-ray on admission shows stable cardiomegaly with granulomatous disease. Lungs are clear. CT of the head without contrast shows atherosclerotic disease, otherwise negative. CARDIOVASCULAR STUDIES: EKG shows normal sinus rhythm with frequent premature atrial complexes, ventricular rate of 91 beats per minute, rhythm telemetry through the night showed atrial fibrillation with fairly controlled ventricular response. IMPRESSION 1. Sepsis-increased lactic acid, hypotension. 2. Urinary tract infection. 3. End-stage renal disease, on hemodialysis. 4. Paroxysmal atrial fibrillation is recurrent. 5. Chronic anemia and chronic thrombocytopenia. 6. History of cirrhosis-nonalcoholic steatohepatitis. 7. Chronic obstructive pulmonary disease, obstructive sleep apnea. 8. Diabetes mellitus, type 2. 9. LVEF of 50% to 55%, moderate aortic stenosis. 10. Moderate pulmonary artery hypertension. 11. Chronic diastolic congestive heart failure. 12. Coronary artery disease. Cardiac cath in 2016 showed 75% to 80% stenosis at the origin of the large marginal branch of the left circumflex. 13. Obesity. 14. Hypothyroidism. 15. History of Hodgkin lymphoma, in the past had chemo. 16. Chronic lymphedema. 17. Nonsmoker. PLAN 1. Cardiology consulted to assist with managing her atrial fibrillation. It looks like it is just a brief episode through the night. By the time they got an EKG, she was back in sinus rhythm with PACs. 2. The patient used to be on a beta-natalie carvedilol, but with her problems with blood pressure running in the 80s and 90s systolically, we will start on amiodarone 400 mg p.o. b.i.d. for one week and then taper the dose down to maintain normal sinus rhythm. 3. The patient's TSH last month was normal. 4. Magnesium and potassium are normal today. On exam, there are no signs Unit #: [id number] #: [id number] Patient: NICOLE LINO or symptoms of acute congestive heart failure. 5. The patient plans on having dialysis today. 6. The patient is not a candidate for chronic anticoagulation, because of thrombocytopenia and chronic anemia and also noncompliancy issues. This has been discussed extensively in the past. Last year, she was trialed on Coumadin and since that time that has been stopped. 7. On exam, there are no signs or symptoms of acute congestive heart failure as mentioned. 8. Further recommendations pending per Dr. Shah. Thank you very much for allowing us to assist in care. Dictated by... Cyndi Goldstein A.P.R.N. for Trevon Shah M.D. GARRISON/alisha TD: 03/13/2017 18:44 JOB #: [id number] CONSULTATION REPORT Page 1 of 1 X Cyndi Goldstein APRN CONSULTATION REPORT
--- NOTE | ~2017-03-11 | DS ---
Unit #: [id number] #: [id number] Patient: NICOLE HOLLIS [id number] [address] [address] [id number] I MR#: [id number] NAME: NICOLE HOLLIS ROOM: 334 Age: 66 Sex: F Admission Date: 03/11/2017 : 1950 Discharge Date: 03/14/2017 Attending Physician: Dinora Rizvi M.D. Primary Care Physician: David Ramirez M.D. DISCHARGE SUMMARY REASON FOR ADMISSION Weakness. HISTORY OF PRESENT ILLNESS/HOSPITAL COURSE Patient is a 66-year-old female, past medical history of end stage renal disease on hemodialysis, cirrhosis secondary to HOWELL, anemia of chronic disease, chronic diastolic heart failure, chronic thrombocytopenia, diabetes, hypertension, chronic lower extremity edema, COPD, paroxysmal atrial fibrillation, likely mild to moderate dementia who was brought to the emergency room secondary to profound weakness. She was recently evaluated in the emergency room 1 day prior to this particular hospital admission, diagnosed with a urinary tract infection and she was discharged home. She had recently been admitted to the hospital several weeks ago. Had been diagnosed with an ESBL UTI and was placed on IV Merrem. At that point in time, was transitioned to a rehab facility. Ultimately, patient was transitioned back home. Apparently while she was at home, she tried to get up for one of her routine dialysis sessions. However, she had a state of profound weakness and could not walk and/or ambulate and, therefore, a decision was made for transfer by family via EMS services. Routine laboratory studies were ascertained through this hospital course including blood sugars which did not show any bacterial growth. Final urine culture did not show any bacterial growth as well. It was noted her ammonia level was elevated at 145. Her lactulose was appropriately titrated. It seems likely that she has a significant hepatic encephalopathy component. We placed consultation to Dr. Dong of [facility] who performed dialysis while patient was here in the hospital. She had no acute complications at dialysis. It is noted patient does have a longstanding history of thrombocytopenia that appears her baseline. Platelets are now closer to the 30 to 50 range. At time of discharge her platelets currently stand at 35, hemoglobin at 10.5. Creatinine at time of discharge 4.9, estimated GFR 8.5, albumin 2.6. Patient has been evaluated by PT/OT services. Strong recommendation has Unit #: [id number] #: [id number] Patient: NICOLE HOLLIS been made for transition to rehab. This has been appropriately arranged for later this afternoon. Consider should be given for intermodal customer service placement as family members state that patient required a high level of care. Will defer that decision after patient is discharged from rehab facility. Also noted are while patient was here in the hospital she was placed on telemetry floor. She was noted to be in paroxysmal atrial fibrillation. She does have a prior history but secondary to her associated comorbid conditions, chronic deconditioning, a decision in the past was made for no anticoagulation. We did consult Dr. Shah for second opinion. He did recommend no anticoagulation secondary to her associated comorbid conditions, end stage liver disease as well as overall poor quality of life. Amiodarone was recommended. Please see discharge meds for details. Sepsis criteria was met on day of admission with elevated lactic acid and hypotension as well as mild tachycardia and/or mental status change. This has been ruled out. Patient will be transitioned to rehab later this afternoon. FINAL DISCHARGE DIAGNOSES 1. Sepsis present on admission, now ruled out. 2. Abnormal urinalysis with negative culture. 3. End stage renal disease, on hemodialysis. 4. Paroxysmal atrial fibrillation, on no chronic anticoagulation secondary to comorbid conditions. 5. Chronic anemia, baseline hemoglobin approximately 10. 6. Chronic thrombocytopenia, baseline platelets between 30 to 50. 7. Cirrhosis, likely end stage secondary to nonalcoholic steatohepatitis. 8. Chronic obstructive pulmonary disease. 9. Obstructive sleep apnea with questionable compliance. 10. History of diastolic dysfunction, ejection fraction of 50-55%. 11. Moderate aortic stenosis. 12. Moderate pulmonary artery hypertension. 13. Diabetes type 2. 14. Morbid obesity. 15. Mild dementia. 16. Chronic immobility syndrome. 17. Longstanding history of noncompliance/poor compliance. 18. Prior history of Hodgkin lymphoma with chemotherapy performed in the past. 19. Prior history of gastric bypass surgery. FINAL DISCHARGE MEDICATIONS 1. Lactulose 20 g p.o. q.6 hours. Note - patient was on q. day at home. This has been titrated up to q.6 hours while here. 2. Paxil 20 mg p.o. q. day. 3. Dulera 1 inhalation b.i.d. 4. DuoNeb aerosol solution q.6 hours with albuterol q.2 p.r.n. 5. Levemir 10 units subcu q. a.c. breakfast. 6. NovoLog low dose sliding scale with insulin Accu-Cheks q. a.c., q. h.s. 7. Pepcid 20 mg p.o. q. day. 8. Renvela 800 mg p.o. q.8 with meals. 9. Synthroid 125 mcg p.o. q. day. 10. Xifaxan 550 mg p.o. b.i.d. Unit #: [id number] #: [id number] Patient: NICOLE HOLLIS 11. Amiodarone 200 mg, 2 tablets p.o. b.i.d. x7 days, then 200 mg p.o. b.i.d. x7 days, then 200 mg p.o. q. day. DISCHARGE CONDITION Stable. DISCHARGE DISPOSITION Rehab as detailed above. PROGNOSIS assisted guarded at best. Dictated by... Gordon Louie/umer TD: 03/15/2017 11:20 JOB #: [id number] DISCHARGE SUMMARY Page 1 of 1 X Dinora Rizvi MD X DISCHARGE SUMMARY
--- NOTE | ~2017-03-11 | EKG ---
PATIENT: NICOLE HOLLIS UNIT #: [id number] Ventricular Rate: 84 BPM Atrial Rate: 84 BPM P-R Interval: 162 ms QRS Duration: 88 ms Q-T Interval: 416 ms QTC Calculation(Bezet): 491 ms P [place]: 76 degrees Calculated R [place]: 70 degrees Calculated T [place]: 61 degrees Diagnosis Line: Sinus rhythm with marked sinus arrhythmia Diagnosis Line: Prolonged QT Diagnosis Line: Abnormal ECG Diagnosis Line: When compared with ECG of 13-MAR-2017 06:35, Diagnosis Line: (unconfirmed) Diagnosis Line: Premature atrial complexes persist Diagnosis Line: Confirmed by BERNICE SCHULER MD ([id number]) on 03/15/2017 Diagnosis Line: 7:57:17 AM INTERPRETING MD: GANGA FLOWERS
[2017-03-11 14:58] LABS: POC - CKMB 1.2 ng/mL (0.0-7.9); POC - TROPONIN <0.05 ng/mL (<=0.05)
[2017-03-11 15:11] LABS: BASOPHIL% 0.2 % (0-2.5); EOSINOPHIL# 0.1 X10e3 (0-0.7); HEMATOCRIT 35.4 % (35.0-45.0); HEMOGLOBIN 11.4 gm/dL (12.0-16.0); LYMPHOCYTE# 0.5 X10e3 (1.0-3.5); LYMPHOCYTE% 6.8 % (17.0-45.0); MEAN CELL VOLUME 99.2 FL (83-96); MEAN CORPUSCULAR HEMOGLOBIN 31.9 PG (28-34); MEAN CORPUSCULAR HGB CONC 32.1 g/dL (30-36); MEAN PLATELET VOLUME 9.5 FL (6.5-11.5); MONOCYTE# 0.8 X10e3 (0-1.0); MONOCYTE% 9.7 % (3.0-12.0); NEUTROPHIL# 6.5 X10e3 (1.5-7.1); NEUTROPHIL% 82.3 % (40-75); RED BLOOD COUNT 3.57 X10e (3.90-5.30); WHITE BLOOD COUNT 7.9 X10e3 (4.0-10.5)
[2017-03-11 15:28] LABS: BILIRUBIN, DIRECT 0.5 mg/dL (0.0-0.2); BILIRUBIN,INDIRECT 1.5 mg/dL (0.0-0.9); BUN/CREATININE RATIO 6.92; CALCIUM SERUM 8.8 mg/dL (8.4-10.2); CREATININE SERUM 5.2 mg/dL (0.6-1.4); GLOM FILT RATE Estimated 7.9 mL/min (>60); POTASSIUM 4.4 mmol/L (3.5-5.1); PROTEIN TOTAL SERUM 6.2 g/dL (6.0-8.3)
[2017-03-11 15:29] LABS: PLATELET COUNT 44 X10e3 (140-420)
[2017-03-11 15:30] LABS: DIFF IND YES
[2017-03-11 15:36] LABS: PLATELET ESTIMATE DECREASED (NORMAL); POIKILOCYTOSIS MOD
[2017-03-12 05:49] LABS: MEAN CELL VOLUME 98.7 FL (83-96); MEAN CORPUSCULAR HEMOGLOBIN 33.1 PG (28-34); MEAN CORPUSCULAR HGB CONC 33.5 g/dL (30-36); MEAN PLATELET VOLUME 9.2 FL (6.5-11.5); RED BLOOD COUNT 3.04 X10e (3.90-5.30); RED CELL DISTRIBUTION WIDTH 20.1 % (11.0-15.5); WHITE BLOOD COUNT 4.8 X10e3 (4.0-10.5)
[2017-03-12 06:36] LABS: BUN/CREATININE RATIO 7.41; CALCIUM SERUM 8.2 mg/dL (8.4-10.2); CREATININE SERUM 5.8 mg/dL (0.6-1.4); GLOM FILT RATE Estimated 6.9 mL/min (>60); POTASSIUM 4.1 mmol/L (3.5-5.1)
[2017-03-13 07:25] LABS: BASOPHIL% 0.3 % (0-2.5); EOSINOPHIL# 0.1 X10e3 (0-0.7); EOSINOPHIL% 1.3 % (0.0-7.0); HEMATOCRIT 30.9 % (35.0-45.0); HEMOGLOBIN 10.4 gm/dL (12.0-16.0); LYMPHOCYTE# 1.1 X10e3 (1.0-3.5); LYMPHOCYTE% 15.7 % (17.0-45.0); MEAN CELL VOLUME 98.5 FL (83-96); MEAN CORPUSCULAR HGB CONC 33.5 g/dL (30-36); MEAN PLATELET VOLUME 8.6 FL (6.5-11.5); MONOCYTE# 0.8 X10e3 (0-1.0); MONOCYTE% 11.7 % (3.0-12.0); NEUTROPHIL# 4.8 X10e3 (1.5-7.1); RED BLOOD COUNT 3.14 X10e (3.90-5.30); RED CELL DISTRIBUTION WIDTH 19.9 % (11.0-15.5); WHITE BLOOD COUNT 6.8 X10e3 (4.0-10.5)
[2017-03-13 07:30] LABS: DIFF IND NO; PLATELET COUNT 43 X10e3 (140-420)
[2017-03-13 07:56] LABS: BUN/CREATININE RATIO 7.74; CALCIUM SERUM 8.6 mg/dL (8.4-10.2); CREATININE SERUM 7.1 mg/dL (0.6-1.4); GLOM FILT RATE Estimated 5.4 mL/min (>60); POTASSIUM 4.1 mmol/L (3.5-5.1)
[2017-03-13] MEDS ORDERED: COMBIVENT U/D3 M2 INH (13:28)
[2017-03-13] MEDS ORDERED: ENTRESTO 24 MG1 EACH PO (13:28)
[2017-03-13] MEDS ORDERED: MAG-OX 400400 M1 PO (13:29)
[2017-03-14 08:06] LABS: HEMOGLOBIN 10.1 gm/dL (12.0-16.0); MEAN CELL VOLUME 99.2 FL (83-96); MEAN CORPUSCULAR HEMOGLOBIN 33.3 PG (28-34); MEAN CORPUSCULAR HGB CONC 33.6 g/dL (30-36); RED BLOOD COUNT 3.03 X10e (3.90-5.30); RED CELL DISTRIBUTION WIDTH 20.7 % (11.0-15.5); WHITE BLOOD COUNT 4.7 X10e3 (4.0-10.5)
[2017-03-14 09:06] LABS: ALBUMIN SERUM 2.6 g/dL (3.5-5.0); BILIRUBIN,TOTAL 1.3 mg/dL (0.2-2.0); BUN/CREATININE RATIO 6.12; CALCIUM SERUM 8.6 mg/dL (8.4-10.2); CREATININE SERUM 4.9 mg/dL (0.6-1.4); GLOM FILT RATE Estimated 8.5 mL/min (>60); POTASSIUM 4.1 mmol/L (3.5-5.1); PROTEIN TOTAL SERUM 5.7 g/dL (6.0-8.3)
[2017-03-15 07:59] LABS: BUN/CREATININE RATIO 6.77; CALCIUM SERUM 8.7 mg/dL (8.4-10.2); CREATININE SERUM 5.9 mg/dL (0.6-1.4); GLOM FILT RATE Estimated 6.8 mL/min (>60); POTASSIUM 4.1 mmol/L (3.5-5.1)
[2017-03-15 08:01] LABS: HEMATOCRIT 30.3 % (35.0-45.0); MEAN CELL VOLUME 99.9 FL (83-96); MEAN CORPUSCULAR HEMOGLOBIN 32.8 PG (28-34); MEAN CORPUSCULAR HGB CONC 32.9 g/dL (30-36); MEAN PLATELET VOLUME 9.1 FL (6.5-11.5); RED BLOOD COUNT 3.03 X10e (3.90-5.30); RED CELL DISTRIBUTION WIDTH 20.5 % (11.0-15.5); WHITE BLOOD COUNT 4.2 X10e3 (4.0-10.5)
== END 2017-03-15 22:00 | disposition home health service (06) | DRG 871 ==
LOC: CED 13:44 → CEDOF 16:24 → CICCU2 21:46 → CEDOF 21:46 → CICCU2 03-12 06:11 → C3A PCU 03-12 17:54
PROVIDERS: Emergency Medicine; Family Medicine; Internal Medicine; Nurse Practitioner
PROC: 5A1D00Z (ICD-10-PCS; principal; 2017-03-11)
DX: A41.9 Sepsis, unspecified organism (principal); N18.6 End stage renal disease; D69.6 Thrombocytopenia, unspecified; F33.2 Major depressive disorder, recurrent severe without psychotic features; F03.90 Unspecified dementia, unspecified severity, without behavioral disturbance, psychotic disturbance, mood disturbance, and anxiety; I50.32 Chronic diastolic (congestive) heart failure; I13.0 Hypertensive heart and chronic kidney disease with heart failure and stage 1 through stage 4 chronic kidney disease, or unspecified chronic kidney disease; I27.2 Other secondary pulmonary hypertension; N39.0 Urinary tract infection, site not specified; E66.01 Morbid (severe) obesity due to excess calories; E11.9 Type 2 diabetes mellitus without complications; D64.9 Anemia, unspecified; K74.60 Unspecified cirrhosis of liver; J44.9 Chronic obstructive pulmonary disease, unspecified; K75.81 Nonalcoholic steatohepatitis (NASH); G47.33 Obstructive sleep apnea (adult) (pediatric); E03.9 Hypothyroidism, unspecified; I35.0 Nonrheumatic aortic (valve) stenosis; Z91.19 Patient's noncompliance with other medical treatment and regimen; I48.0 Paroxysmal atrial fibrillation; Z79.4 Long term (current) use of insulin; K72.90 Hepatic failure, unspecified without coma; Z98.51 Tubal ligation status; Z90.710 Acquired absence of both cervix and uterus; R53.1 Weakness; Z79.899 Other long term (current) drug therapy; Z88.2 Allergy status to sulfonamides; Z88.8 Allergy status to other drugs, medicaments and biological substances; Z88.5 Allergy status to narcotic agent
CPT/HCPCS: 36415; 70450; 71010; 80048; 80053; 80076; 81003; 82140; 82553; 82947; 83605; 83735; 84484; 85025; 85027; 85610; 85730; 87040; 87086; 93005; 94640; 94664; 94760; 97116; 97162; 97166; 97530; 97535; 99285; G8978-GP; G8979-GP; G8987-GO; G8988-GO; J0696; J1815; J2185